=== PATIENT | female | born 1975 | race Caucasian/White ===

== ENCOUNTER 2018-02-16 15:09 | Inpatient (IN) | payer OTHER ==
[2018-02-16] MEDS ORDERED: ONDANSETRON DISINTEGRATING 4 MG TAB PO PRN (16:19)
--- NOTE | 2018-02-16 17:14 | GHP ---
POST ADMISSION PHYSICIAN EVALUATION AND REHABILITATION TREATMENT PLAN DATE OF ADMISSION: 02/16/2018 DATE OF EVALUATION: 02/16/2018. TIME OF EVALUATION: 1535. REFERRING FACILITY: [facility]. REFERRING PHYSICIAN: Dr. Rascon IMPAIRMENT GROUP: 1.1. DATE OF ONSET: 02/08/2018. REHABILITATION DIAGNOSIS: Debility status post hemorrhagic cerebrovascular accident. ETIOLOGIC DIAGNOSIS: Left body involvement (right brain). DATE OF SURGERY: 02/08/2018. CONSULTING PHYSICIANS: She was seen by surgery as well as Pulmonary and Critical Care. HISTORY OF PRESENT ILLNESS: This patient has a history of moyamoya disease with prior strokes and prior stenting of the left carotid artery. At that time there was narrowing of the bilateral carotid arteries, so she had a stenting of the right internal carotid soon thereafter. The left carotid artery stent was in December of 2015. The right one was on January 2016, and she had a repeat stent due to restenosis in August of 2016. She went to [facility] for tertiary care specialty intervention. She had a right craniotomy on 02/08/2018, for an extracranial to intracranial bypass. Following the bypass procedure, she was noted to have left -sided weakness and was diagnosed with a right intracranial hemorrhage. Head CT on 02/09/2018, showed postsurgical changes of right-sided craniotomy and EC to IC bypass with roughly stable large heterogeneous right frontoparietal postoperative hematoma and edema with local mass effect and a 4 mm right-to- left midline shift. Preoperative head CT showed chronic border zone hypoperfusion infarcts within the right frontal and parietal lobes. She was maintained on therapeutic hypernatremia to reduce brain swelling and upon hospital discharge, based on direct discussion with the discharging physician, her current sodium goal is 140. She subsequently had improvement in her left lower extremity strength and slight improvement in the left upper extremity strength. She reports that she has been able to stand and that she needed assist of 2 people to make transfers. She has not walked. LABS: Other labs and studies during this stay, I do not have a comprehensive list. On 02/13/2018, a basic metabolic profile showed a sodium of 152. PRECAUTIONS: She is a fall risk and has aspiration precautions. ACTIVE COMORBIDITIES: She has the tier 3 comorbidity of left hemiparesis. She otherwise has no active tier 1, tier 2 or tier 3 comorbidities. PAST MEDICAL HISTORY: 1. Moyamoya disease. 2. Prior CVA from which she reports no residual deficits. 3. Asthma. 4. General anxiety disorder. 5. Mixed hyperlipidemia. 6. Lumbar disk disorder. PAST SURGICAL HISTORY: Carotid stenting on the right and on the left. PRE HOSPITAL MEDICATIONS: 1. Albuterol metered-dose inhaler 1-2 puffs p.r.n. 2. Ascorbic acid 1000 mg p.o. at bedtime. 3. Aspirin 81 mg p.o. at bedtime. 4. Atorvastatin 10 mg p.o. at bedtime. 5. Clopidogrel 75 mg p.o. daily. 6. Escitalopram 20 mg p.o. at bedtime. 7. Folic acid 400 mcg p.o. at bedtime. 8. Lorazepam 0.5 mg p.o. at bedtime. 9. Montelukast 10 mg p.o. at bedtime. 10. Duet DHEA balanced multivitamin 1 p.o. daily. ADMISSION MEDICATIONS: 1. Albuterol metered-dose inhaler 1-2 puffs p.o. p.r.n. 2. Ascorbic acid 1000 mg p.o. at bedtime. 3. Atorvastatin 10 mg p.o. at bedtime. 4. Duet DHEA multivitamin p.o. daily. 5. Escitalopram 20 mg p.o. at bedtime. 6. Folic acid 400 mcg p.o. at bedtime. 7. Lorazepam 0.5 mg p.o. at bedtime. 8. Montelukast 10 mg p.o. at bedtime. 9. Acetaminophen 650 mg p.o. q.6 hours p.r.n. 10. Bacitracin/polymyxin once a day to right scalp incision for 1 month. 11. Baclofen 5 mg p.o. three times daily. 12. Docusate 1 p.o. twice daily. 13. Famotidine 1 p.o. twice daily. 14. Hydrocodone/acetaminophen 1 p.o. q.4 hours p.r.n. 15. Ondansetron 4 mg orally disintegrating tablet p.o. q.6 hours p.r.n. 16. Polyethylene glycol 1 packet p.o. daily p.r.n. 17. Sodium chloride 3 g p.o. three times daily with meals. ALLERGIES: There is an allergy listed to penicillin which caused a rash. SOCIAL HISTORY: She is . She lives with her . They have 2 school-age children at home. 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 She is a nonsmoker. FAMILY HISTORY: Her father had diabetes, heart disease and hypertension. There was cancer in a paternal grandfather and diabetes in a paternal grandfather as well as hypertension and heart disease. REVIEW OF SYSTEMS: She has some fatigue after traveling from [place] by plane and then from the airport to the rehabilitation unit. She gets headaches on the right side of her head, typically worse later in the day. She denies vision changes. She is aware of a left facial droop. She has weakness in the left arm and the left leg. She denies loss of sensation. She denies cough or dyspnea. She reports she was using some oxygen in the hospital. She reports that she typically uses albuterol inhaler only when she has an respiratory infection. Her weight has been stable. She denies nausea, vomiting, constipation, or diarrhea. She has a good appetite. She denies dysuria or urinary frequency. She has had urinary urgency and incontinence, but today was able to be continent and urinate normally using a bed wall. She has had loose stools while on a stool softener and the stool softener was held and now has more normal bowel movements. She reports that she snores. Her has not noticed apneas at night. Otherwise, a 10-point review of systems is negative. PHYSICAL EXAM: VITAL SIGNS: Blood pressure is 133/76, heart rate is 55, respiratory rate is 16, oxygen saturation is 94% on room air. Temperature is 36.7 degrees centigrade. Her weight is 95 kg for a body mass index of 32.8. GENERAL: This is an obese woman, lying in bed, wearing a hospital gown, cooperative and in no acute distress. HEENT: Extraocular movements are intact. Pupils are equal, round, reactive to light. Mucous membranes are moist. Dentition is in good condition. She has a crowded airway, Mallampati class 4. NECK: Supple. HEART: There is regular rate and rhythm with no murmurs, rubs, or gallops. She is slightly bradycardic. LUNGS: Clear to auscultation bilaterally. ABDOMEN: Soft, nontender, nondistended with normoactive bowel sounds and no hepatosplenomegaly. EXTREMITIES: There is no cyanosis, clubbing, or edema. Radial and dorsalis pedis pulses are 2+ bilaterally. NEUROLOGIC: She is alert and oriented x3. Regarding cranial nerves, she has a left facial droop. However, she has normal closure of the left eye. Sensation is present but reduced on the left side of her face from the forehead to the jaw. Cranial nerves otherwise 2-12 are within normal limits. Visual fulton by confrontation show possibly a defect in the right upper quadrant. In terms of motor strength, left upper extremity is at most 1/5. She has flaccid paralysis of the wrist and fingers, 2 to 3/5 strength of the left triceps. No movement to the left biceps. No movement of the left deltoid. She is able to shrug the left shoulder. In the left lower extremity, she has 4/5 strength at the hip flexor, 5/5 strength at the quadriceps and 3/5 strength at the hamstrings. She appears to have somewhat of an extension contracture at the left ankle. She has 3/5 to 4/5 strength for ankle dorsiflexion and 5/5 for ankle plantar flexion , great toe is 5/5 in extension. On the right side she has 5/5 strength overall. Sensation is intact to light touch bilaterally in the upper and lower extremities. There is no extinction to double simultaneous stimulation. Plantar reflex is indeterminate bilaterally. Deep tendon reflexes are 2+ bilaterally at the biceps and patella and are hypoactive bilaterally at the Achilles tendons. CURRENT LEVEL OF FUNCTION PER THE PREADMISSION SCREEN: She was on mechanical soft diet with nectar thick liquids. She required minimal assistance for eating. She had pocketing on the left. She was upright at 90 degrees after meals, taking small bites with no straws and small sips. Liquid wash and oral care after meals. Oral and pharyngeal dysphagia was noted. Regarding dressing , lower body required maximal assist and was done supine. Upper body required maximal assist. She was incontinent of bladder and bowel. Bed mobility required moderate assistance of 2 to go from supine to sit. Transfers required moderate assistance using a Radha Stedy with manual blocking of the left knee to prevent buckling during [id number] and stand to sit activities. Seated balance was fair. She required hand-held assist for midline, maintaining upright posture. She had adequate endurance to tolerate and participate in therapies. On today's exam, she is now continent of bladder. She required moderate assist of 1 for supine to seated. Otherwise, there are no significant differences from the pre-admission screen. IMPRESSION: This patient is a 42-year-old woman with a history of a prior stroke involving watershed areas of the right frontal and parietal areas and a diagnosis of moyamoya disease. She had previously had stenting of the right and x2 of the left internal carotid arteries and went to [facility] for definitive extracranial to intracranial bypass surgery. There was a postsurgical complication of hemorrhage in the right frontal and parietal lobes. The anastomosis remained intact. She was maintained with therapeutic hypernatremia to reduce brain swelling. She was otherwise stable and ready for rehabilitation. She returned to [place] where she lives to have her rehabilitation done locally. She has oral and pharyngeal dysphagia, left facial droop and reduced sensation and weakness of the left upper much more so than the left lower extremities. She has neck pain and headache which present later in the day. She has had hypernatremia with the current goal of normal sodium. She is appropriate for inpatient rehabilitation where she will benefit from PT, OT, and CAMPAIGN ADVISOR. Her goal is to complete a rehabilitation stay and return home with her family and supportive services. For a safe discharge, it is anticipated that she will be independent with eating and will tolerate a regular diet. She will have modified independence for grooming. She will likely require supervision for bed mobility and transfers to wheelchair. She will be able to self propel the wheelchair for household distances. She will be able to take steps with a pedro luis walker with contact guard. She will likely require assistance and equipment for bathing and dressing and likely minimal assistance for these tasks. Her home will need to be prepared with a ramp and potentially a [place] to access the bedroom and bathroom on the 2nd floor. She will have therapy with PT, OT, and speech therapy for 1 hour per day for each discipline on 5-7 days of the week. Her expected duration of stay is 21- 28 days. It is anticipated that upon discharge she will continue to benefit from home health services including nursing, speech and language pathology, a nurse's aide , hospital social worker, occupational therapy, physical therapy and a stroke support group. PLAN: 1. Hemorrhagic cerebrovascular accident of the right frontal and parietal region following extracranial to intracranial arterial bypass graft for moyamoya disease. PT and OT to optimize mobility and activities of daily living towards the independent to modified independent level, though she will likely continue to require assistance for dressing and bathing. 2. Dysphagia, oral and pharyngeal, to be assessed and treated per Speech and Language Pathology. 3. Therapeutic hypernatremia. She is to continue sodium chloride 3 g three times daily with a goal now of normal sodium of 140. 4. Secondary stroke prophylaxis, she will continue atorvastatin for dyslipidemia. Aspirin can be resumed 1 month postoperative, which would be March 10. Unclear if it is to be 81 mg or 325 mg. 5. Asthma. Continue scheduled oral montelukast and albuterol metered dose inhaler p.r.n. 6. Headache and neck pain. Continue acetaminophen as well as a hydrocodone acetaminophen combination on a p.r.n. basis. 7. History of anxiety. Continue escitalopram and continue lorazepam at bedtime. 8. Obesity. This will complicate her return to mobility. She will have a consult with the dietitian. 9. Prophylaxis with obesity and hemiplegia. She is at elevated risk for deep vein thrombosis, however with recent hemorrhagic stroke, discharging physicians report that any anticoagulation is contraindicated (discussed by phone with Dr. Radha Rasocn, 02/16/2018) she will have SCDs at night on her legs. Increased mobility will be encouraged. She has been discharged on famotidine for GI prophylaxis. This will be continued initially. 10. Followup: She will follow up with the neurosurgery service at [facility] in 6 months. /[id number]/MODL MTDD
[2018-02-16] MEDS: SODIUM CHLORIDE 1,000 MG TAB PO SCH (17:24)
[2018-02-16] MEDS: ESCITALOPRAM OXALATE 10 MG TAB PO SCH (21:04)
[2018-02-16] MEDS: ATORVASTATIN CALCIUM 10 MG TAB PO SCH (21:04)
[2018-02-16] MEDS: FOLIC ACID 1 MG TAB PO SCH (21:04)
[2018-02-16] MEDS: FAMOTIDINE 20 MG TAB PO SCH (21:04)
[2018-02-16] MEDS: DOCUSATE SODIUM 100 MG CAP PO SCH (21:05)
[2018-02-16] MEDS: BACLOFEN 10 MG TAB PO SCH (21:05)
[2018-02-16] MEDS: MONTELUKAST SODIUM 10 MG TAB PO SCH (21:05)
[2018-02-16] MEDS: LORazepam 0.5 MG TAB PO SCH (21:05)
[2018-02-16] MEDS: BACITRACIN/POLYMYXIN B SULFATE 28.3 GM TUBE TP SCH (21:06)
[2018-02-16] MEDS: HYDROCODONE/APAP 10/325 TAB PO PRN (21:06)
[2018-02-16] MEDS: HYDROCODONE/APAP 5/325 TAB PO PRN (22:58)
[2018-02-17 00:14] LABS: PLATELET COUNT 238 10^3/uL (150-400)
[2018-02-17] MEDS: [UNRECOGNIZED DRUG - OTHER] PO SCH (09:10)
[2018-02-17] MEDS: SODIUM CHLORIDE 1,000 MG TAB PO SCH ×3 (09:12→18:30)
[2018-02-17] MEDS: DOCUSATE SODIUM 100 MG CAP PO SCH ×2 (09:14→22:15)
[2018-02-17] MEDS: FAMOTIDINE 20 MG TAB PO SCH ×2 (09:14→22:16)
[2018-02-17] MEDS: BACLOFEN 10 MG TAB PO SCH ×3 (09:14→22:15)
[2018-02-17] MEDS: POLYETHYLENE GLYCOL 3350 17 GM PKT PO PRN (09:15)
--- NOTE | 2018-02-17 09:35 | PDOREHIP ---
Admission [facility] - Admission - 3 Day Assessment Period Admission Date/Day 1: 02/16/18 Day 2: 02/17/18 Day 3: 02/18/18 - Active Diagnoses Comorbidities and Co-existing Conditions at Admission: 57519. None of the Above - Skin Conditions Unhealed Pressure Ulcer (1 or more/Stage 1 or >)-Admission: 0. No
--- NOTE | 2018-02-17 09:35 | SOAPPROG ---
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 PT and OT to optimize mobility and activities of daily living towards the independent to modified independent level, though she will likely continue to require assistance for dressing and bathing. Dysphagia, oral and pharyngeal, to be assessed and treated per Speech and Language Pathology. Therapeutic hypernatremia. She is at her goal of normal sodium, with sodium 141 on 02/16/2018. Will decrease sodium chloride to 2 g 3 times a day. Recheck BMP on 02/20/2018. Allodynia, left leg. Consistent with central post-stroke pain. DVT ruled out by ultrasound, 02/17/2018. * Trial of gabapentin. Begin with low-dose 100 mg three times daily. Titrate rapidly if no adverse effects. Secondary stroke prophylaxis. Continue atorvastatin for dyslipidemia. Aspirin can be resumed 1 month postoperative, which would be March 10. Asthma. Asymptomatic. Continue scheduled oral montelukast and albuterol metered dose inhaler p.r.n. Headache and neck pain. Continue acetaminophen as well as a hydrocodone acetaminophen combination on a p.r.n. basis. History of anxiety. Continue escitalopram and continue lorazepam at bedtime. Obesity. This will complicate her return to mobility. She will have a consult with the dietitian. Prophylaxis with obesity and hemiplegia. She is at elevated risk for deep vein thrombosis, however with recent hemorrhagic stroke, discharging physicians report that any anticoagulation is contraindicated (discussed by phone with Dr. Radha Rascon, 02/16/2018, ). She will have SCDs at night on her legs. Increased mobility will be encouraged. She has been discharged on famotidine for GI prophylaxis. This will be continued initially. Followup: She will follow up with the neurosurgery service at [facility] in 6 months. 02/17/18 10:09 Subjective: Slept well after about 2 in the morning when she returned from ultrasound. Left DVT was ruled out. She complains of pain in the left leg with stimulus which is not normally painful for instance if anyone jaw cells the bed. She denies focal tenderness. No cough or dyspnea. Objective: Vital Signs Temp Pulse Resp BP Pulse Ox 36.6 C 51 L 12 154/78 H 93 02/17/18 08:00 02/17/18 08:00 02/17/18 08:00 02/17/18 08:00 02/17/18 08:00 Laboratory Results 02/16/18 23:10 02/16/18 23:10 02/16/18 02/17/18 02/18/18 05:59 05:59 05:59 Output Total 400 400 Balance -400 -400 Physical Exam - Physical Exam General Appearance: WD/WN, alert, no apparent distress Respiratory: No respiratory distress, No accessory muscle use Skin: normal color, warm/dry Extremities: non-tender, No pedal edema, No calf tenderness Neuro/Psych: alert, normal mood/affect, oriented x 3 ICD10 Worksheet Patient Problems: Problems Problem Status Onset CVA (cerebral vascular accident) Acute
[2018-02-17] MEDS: BACITRACIN/POLYMYXIN B SULFATE 28.3 GM TUBE TP SCH ×3 (11:08→22:16)
[2018-02-17] MEDS: HYDROCODONE/APAP 5/325 TAB PO PRN ×2 (13:58→23:40)
[2018-02-17] MEDS: GABAPENTIN 100 MG CAP PO SCH ×2 (15:51→22:15)
[2018-02-17] MEDS: LORazepam 0.5 MG TAB PO SCH (22:15)
[2018-02-17] MEDS: MONTELUKAST SODIUM 10 MG TAB PO SCH (22:15)
[2018-02-17] MEDS: FOLIC ACID 1 MG TAB PO SCH (22:15)
[2018-02-17] MEDS: ESCITALOPRAM OXALATE 10 MG TAB PO SCH (22:15)
[2018-02-17] MEDS: ATORVASTATIN CALCIUM 10 MG TAB PO SCH (22:16)
[2018-02-18] MEDS: HYDROCODONE/APAP 10/325 TAB PO PRN ×4 (03:47→22:31)
[2018-02-18] MEDS: BACLOFEN 10 MG TAB PO SCH ×3 (09:05→22:31)
[2018-02-18] MEDS: FAMOTIDINE 20 MG TAB PO SCH ×2 (09:05→22:30)
[2018-02-18] MEDS: SODIUM CHLORIDE 1,000 MG TAB PO SCH ×3 (09:05→18:27)
[2018-02-18] MEDS: GABAPENTIN 100 MG CAP PO SCH ×3 (09:05→22:30)
[2018-02-18] MEDS: DOCUSATE SODIUM 100 MG CAP PO SCH ×2 (09:05→22:30)
[2018-02-18] MEDS: BACITRACIN/POLYMYXIN B SULFATE 28.3 GM TUBE TP SCH ×3 (09:07→22:31)
[2018-02-18] MEDS: [UNRECOGNIZED DRUG - OTHER] PO SCH (09:21)
--- NOTE | 2018-02-18 09:55 | SOAPPROG ---
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 PT and OT to optimize mobility and activities of daily living towards the independent to modified independent level, though she will likely continue to require assistance for dressing and bathing. Dysphagia, oral and pharyngeal, to be assessed and treated per Speech and Language Pathology. CURRENTLY ON DYSPHAGIA 2 DIET. SPEECH THERAPY CONTINUES TO WORK WITH HER MASTICATION IS SKILLS Therapeutic hypernatremia. She is at her goal of normal sodium, with sodium 141 on 02/16/2018. Will decrease sodium chloride to 2 g 3 times a day. Recheck BMP on 02/20/2018. Allodynia, left leg. Consistent with central post-stroke pain. DVT ruled out by ultrasound, 02/17/2018. * Trial of gabapentin. Begin with low-dose 100 mg three times daily. Titrate rapidly if no adverse effects. Secondary stroke prophylaxis. Continue atorvastatin for dyslipidemia. Aspirin can be resumed 1 month postoperative, which would be March 10. Asthma. Asymptomatic. Continue scheduled oral montelukast and albuterol metered dose inhaler p.r.n. Headache and neck pain. Continue acetaminophen as well as a hydrocodone acetaminophen combination on a p.r.n. basis. History of anxiety. Continue escitalopram and continue lorazepam at bedtime. Obesity. This will complicate her return to mobility. She will have a consult with the dietitian. Prophylaxis with obesity and hemiplegia. She is at elevated risk for deep vein thrombosis, however with recent hemorrhagic stroke, discharging physicians report that any anticoagulation is contraindicated (discussed by phone with Dr. Radha Rascon, 02/16/2018, ). She will have SCDs at night on her legs. Increased mobility will be encouraged. She has been discharged on famotidine for GI prophylaxis. This will be continued initially. LEFT HEEL CORD TIGHTNESS-PATIENT WILL KNEE PASSIVE ANKLE DORSIFLEXION RANGE OF MOTION 3 TIMES PER DAY TO PREVENT HEEL CORD TIGHTNESS. LEFT HEMIPLEGIA-PATIENT ENCOURAGED TO PERFORM ACTIVE LEFT HIP FLEXION, LEFT KNEE FLEXION AND ANKLE DORSIFLEXION SEVERAL TIMES PER HOUR. ON EXAM NO EVIDENCE OF LEFT SHOULDER SUBLUXATION Plan: 02/18/18 09:52 Subjective: SHE HAS NO COMPLAINTS THIS MORNING. SHE DENIES LEFT SHOULDER PAIN. SHE REPORTS SHE IS GETTING SOME MOTOR RETURN IN HER LEFT LOWER EXTREMITY. Objective: Vital Signs Temp Pulse Resp BP Pulse Ox 36.6 C 53 L 16 122/73 H 93 02/17/18 20:08 02/17/18 20:08 02/17/18 20:08 02/17/18 20:08 02/17/18 20:08 Laboratory Results 02/16/18 23:10 02/16/18 23:10 02/17/18 02/18/18 02/19/18 05:59 05:59 05:59 Intake Total 327 Output Total 400 1300 Balance -400 -973 Physical Exam - Physical Exam General Appearance: WD/WN, alert, no apparent distress Respiratory: lungs clear, normal breath sounds Cardiac/Chest: edema (LEFT FOREARM AND HAND SLIGHTLY EDEMATOUS) Abdomen: non-tender, soft Extremities: No swelling, No Mckayla's sign (RIGHT FACIAL DROOP. LEFT HEMIPLEGIA WITH NO MOTOR RETURN THUS FAR IN LEFT UPPER EXTREMITY 3/5 HIP FLEXORS, HAMSTRINGS AND ANKLE DORSIFLEXORS. INCREASED TONE LEFT ANKLE PLANTAR FLEXORS WITH PASSIVE DORSIFLEXION CAN ACHIEVE 0 BUT NOTED TO HAVE HEEL CORD TIGHTNESS.) Neuro/Psych: alert, oriented x 3 ICD10 Worksheet Patient Problems: Problems Problem Status Onset CVA (cerebral vascular accident) Acute
[2018-02-18] MEDS: POLYETHYLENE GLYCOL 3350 17 GM PKT PO PRN (18:27)
[2018-02-18] MEDS: MONTELUKAST SODIUM 10 MG TAB PO SCH (22:30)
[2018-02-18] MEDS: LORazepam 0.5 MG TAB PO SCH (22:30)
[2018-02-18] MEDS: ESCITALOPRAM OXALATE 10 MG TAB PO SCH (22:30)
[2018-02-18] MEDS: ATORVASTATIN CALCIUM 10 MG TAB PO SCH (22:30)
[2018-02-18] MEDS: FOLIC ACID 1 MG TAB PO SCH (22:31)
[2018-02-18] MEDS: HYDROCODONE/APAP 5/325 TAB PO PRN (23:44)
[2018-02-19] MEDS: HYDROCODONE/APAP 5/325 TAB PO PRN (06:26)
[2018-02-19] MEDS: BACLOFEN 10 MG TAB PO SCH ×3 (09:10→22:29)
[2018-02-19] MEDS: FAMOTIDINE 20 MG TAB PO SCH ×2 (09:10→22:28)
[2018-02-19] MEDS: DOCUSATE SODIUM 100 MG CAP PO SCH ×2 (09:10→22:28)
[2018-02-19] MEDS: SODIUM CHLORIDE 1,000 MG TAB PO SCH ×3 (09:11→17:47)
[2018-02-19] MEDS: GABAPENTIN 100 MG CAP PO SCH (09:11)
[2018-02-19] MEDS: POLYETHYLENE GLYCOL 3350 17 GM PKT PO PRN (09:15)
[2018-02-19] MEDS: [UNRECOGNIZED DRUG - OTHER] PO SCH (09:28)
[2018-02-19] MEDS: BACITRACIN/POLYMYXIN B SULFATE 28.3 GM TUBE TP SCH ×3 (09:29→22:30)
--- NOTE | 2018-02-19 10:39 | SOAPPROG ---
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 PT and OT to optimize mobility and activities of daily living towards the independent to modified independent level, though she will likely continue to require assistance for dressing and bathing. Dysphagia, oral and pharyngeal, to be assessed and treated per Speech and Language Pathology. CURRENTLY ON DYSPHAGIA 2 DIET. SPEECH THERAPY CONTINUES TO WORK WITH HER MASTICATION IS SKILLS Therapeutic hypernatremia. She is at her goal of normal sodium, with sodium 141 on 02/16/2018. Will decrease sodium chloride to 2 g 3 times a day. Recheck BMP on 02/20/2018. Allodynia, left leg. Consistent with central post-stroke pain. DVT ruled out by ultrasound, 02/17/2018. * HAVE INCREASED GABAPENTIN TO 300 MG TWICE DAILY TODAY AND IF NO IMPROVEMENT IN LEFT LOWER EXTREMITY NEUROPATHIC PAIN WILL INCREASE IT TO 300 THREE TIMES DAILY IN NEXT FEW DAYS. Secondary stroke prophylaxis. Continue atorvastatin for dyslipidemia. Aspirin can be resumed 1 month postoperative, which would be March 10. Asthma. Asymptomatic. Continue scheduled oral montelukast and albuterol metered dose inhaler p.r.n. Headache and neck pain. BEGIN FIORICET ON A SCHEDULED BASIS TO ADDRESS HEADACHE. DISCUSSED WITH NURSING TO COUNSELED PATIENT TO TAKE NORCO AT NIGHT TO AVOID SEDATION DURING THERAPY AND TO TAKE FIORICET IF SHE HAS HEADACHES DURING THE DAY. History of anxiety. Continue escitalopram and continue lorazepam at bedtime. Obesity. This will complicate her return to mobility. She will have a consult with the dietitian. Prophylaxis with obesity and hemiplegia. She is at elevated risk for deep vein thrombosis, however with recent hemorrhagic stroke, discharging physicians report that any anticoagulation is contraindicated (discussed by phone with Dr. Radha Rascon, 02/16/2018, ). She will have SCDs at night on her legs. Increased mobility will be encouraged. She has been discharged on famotidine for GI prophylaxis. This will be continued initially. LEFT HEEL CORD TIGHTNESS-PATIENT WILL KNEE PASSIVE ANKLE DORSIFLEXION RANGE OF MOTION 3 TIMES PER DAY TO PREVENT HEEL CORD TIGHTNESS. LEFT HEMIPLEGIA-PATIENT ENCOURAGED TO PERFORM ACTIVE LEFT HIP FLEXION, LEFT KNEE FLEXION AND ANKLE DORSIFLEXION SEVERAL TIMES PER HOUR. ON EXAM NO EVIDENCE OF LEFT SHOULDER SUBLUXATION Plan: 02/18/18 09:52 02/19/18 10:37 Subjective: NO COMPLAINTS THIS A.M.. NURSING REPORTS THAT SHE HAD A BAD HEADACHE YESTERDAY AND TOOK NORCO FOR THIS HOWEVER THIS CAUSE SEDATION. NURSING ALSO RELAYS THAT SHE CONTINUES TO COMPLAIN OF INCREASED LEFT LOWER EXTREMITY PAIN WHICH APPARENTLY STARTED AFTER MY ROUNDS YESTERDAY. NURSING ALSO REPORTS THAT PATIENT HAS NOT HAD A BOWEL MOVEMENT SINCE 03/17 Objective: Vital Signs Temp Pulse Resp BP Pulse Ox 37.0 C 57 L 16 136/87 H 93 02/19/18 06:46 02/19/18 06:46 02/19/18 06:46 02/19/18 06:46 02/19/18 06:46 Laboratory Results 02/16/18 23:10 02/16/18 23:10 02/18/18 02/19/18 02/20/18 05:59 05:59 05:59 Intake Total 327 660 Output Total 1300 1025 500 [facility] -[phone] Physical Exam - Physical Exam General Appearance: WD/WN, alert Respiratory: lungs clear, normal breath sounds Abdomen: normal bowel sounds, non-tender, soft Skin: warm/dry Extremities: swelling (SLIGHT EDEMA NOTED LEFT FOREARM AND HAND), No Mckayla's sign Neuro/Psych: other (NEUROLOGICAL EXAM REMAINS UNCHANGED. SHE CAN LIFT THE LEFT LEG UP A FEW INCHES OFF OF THE BED. SHE IS ABLE TO ACTIVELY FLEX AND EXTEND THE KNEE WITHIN LIMITED RANGE OF MOTION. STILL HAS DIFFICULTY WITH HIP FLEXION. NO LEFT SHOULDER SUBLUXATION APPRECIATED.) ICD10 Worksheet Patient Problems: Problems Problem Status Onset CVA (cerebral vascular accident) Acute
[2018-02-19] MEDS: ACET/CAFFEINE/BUTA FIORICET 1 EACH TAB PO PRN ×3 (10:55→23:09)
[2018-02-19] MEDS: BISACODYL 10 MG SUPP PR PRN (15:31)
[2018-02-19] MEDS: GABAPENTIN 300 MG CAP PO SCH (22:28)
[2018-02-19] MEDS: LORazepam 0.5 MG TAB PO SCH (22:29)
[2018-02-19] MEDS: ATORVASTATIN CALCIUM 10 MG TAB PO SCH (22:29)
[2018-02-19] MEDS: ESCITALOPRAM OXALATE 10 MG TAB PO SCH (22:29)
[2018-02-19] MEDS: MONTELUKAST SODIUM 10 MG TAB PO SCH (22:29)
[2018-02-19] MEDS: FOLIC ACID 1 MG TAB PO SCH (22:29)
[2018-02-19] MEDS: SENNOSIDES 1 TAB PO SCH (22:29)
[2018-02-20] MEDS: SENNOSIDES 1 TAB PO SCH ×2 (09:08→21:17)
[2018-02-20] MEDS: BACLOFEN 10 MG TAB PO SCH ×3 (09:08→21:03)
[2018-02-20] MEDS: DOCUSATE SODIUM 100 MG CAP PO SCH ×2 (09:09→21:16)
[2018-02-20] MEDS: FAMOTIDINE 20 MG TAB PO SCH ×2 (09:09→21:05)
[2018-02-20] MEDS: POLYETHYLENE GLYCOL 3350 17 GM PKT PO PRN (09:09)
[2018-02-20] MEDS: GABAPENTIN 300 MG CAP PO SCH ×2 (09:09→21:03)
[2018-02-20] MEDS: SODIUM CHLORIDE 1,000 MG TAB PO SCH ×3 (09:09→17:27)
[2018-02-20] MEDS: ACET/CAFFEINE/BUTA FIORICET 1 EACH TAB PO PRN ×3 (09:10→21:59)
[2018-02-20] MEDS: BACITRACIN/POLYMYXIN B SULFATE 28.3 GM TUBE TP SCH ×2 (09:15→15:59)
--- NOTE | 2018-02-20 12:13 | SOAPPROG ---
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 PT and OT to optimize mobility and activities of daily living towards the independent to modified independent level, though she will likely continue to require assistance for dressing and bathing. DENSE LEFT UPPER EXTREMITY PARESIS WITH NO VOLUNTARY MOVEMENT. 3/5 LEFT HIP FLEXION 3-/5 QUADRICEPS AND HAMSTRINGS 3/5 TIBIALIS ANTERIOR. CURRENTLY NOT WALKING OR PERFORMING TRANSFERS. Dysphagia, ORAL AND PHARYNGEAL. SPEECH AND LANGUAGE THERAPY WORKING WITH PATIENT. SHE HAS TROUBLE WITH MASTICATION DUE TO WEAKNESS OF MUSCLES OF MASTICATION. TENDS TO HAVE SOME ORAL POOLING. SHE IS ON WATER PROTOCOL BUT IS NOT TAKING IN ENOUGH FLUIDS. SHE IS ON NECTAR THICK. SPEECH THERAPY WILL WORK ON E- STIMULATION of oral muscles. Therapeutic hypernatremia. She is at her goal of normal sodium, with sodium 141 on 02/16/2018. Will decrease sodium chloride to 2 g 3 times a day. Recheck BMP on 02/21 Allodynia, left leg. Consistent with central post-stroke pain. DVT ruled out by ultrasound, 02/17/2018. * HAVE INCREASED GABAPENTIN TO 300 MG TWICE DAILY TODAY AND IF NO IMPROVEMENT IN LEFT LOWER EXTREMITY NEUROPATHIC PAIN WILL INCREASE IT TO 300 THREE TIMES DAILY IN NEXT FEW DAYS. Secondary stroke prophylaxis. Continue atorvastatin for dyslipidemia. Aspirin can be resumed 1 month postoperative, which would be March 10. Asthma. Asymptomatic. Continue scheduled oral montelukast and albuterol metered dose inhaler p.r.n. Headache and neck pain. Much improved after beginning Fioricet History of anxiety. Continue escitalopram and continue lorazepam at bedtime. Obesity. This will complicate her return to mobility. She will have a consult with the dietitian. Prophylaxis with obesity and hemiplegia. She is at elevated risk for deep vein thrombosis, however with recent hemorrhagic stroke, discharging physicians report that any anticoagulation is contraindicated (discussed by phone with Dr. Radha Rascon, 02/16/2018, ). She will have SCDs at night on her legs. Increased mobility will be encouraged. She has been discharged on famotidine for GI prophylaxis. This will be continued initially. LEFT HEEL CORD TIGHTNESS-PATIENT WILL KNEE PASSIVE ANKLE DORSIFLEXION RANGE OF MOTION 3 TIMES PER DAY TO PREVENT HEEL CORD TIGHTNESS. LEFT HEMIPLEGIA-PATIENT ENCOURAGED TO PERFORM ACTIVE LEFT HIP FLEXION, LEFT KNEE FLEXION AND ANKLE DORSIFLEXION SEVERAL TIMES PER HOUR. ON EXAM NO EVIDENCE OF LEFT SHOULDER SUBLUXATION Plan: 02/18/18 09:52 02/19/18 10:37 02/20/18 12:08 Subjective: PATIENT REPORTS HEADACHES MUCH IMPROVED AFTER BEGINNING FIORICET. SHE IS STILL HAVING SOME NEUROPATHIC PAIN IN THE LEFT UPPER AND LEFT LOWER EXTREMITY WELL THE [place] [facility]. NO OTHER COMPLAINTS PER PATIENT OR NURSING STAFF Objective: Vital Signs Temp Pulse Resp BP Pulse Ox 36.6 C 54 L 16 141/85 H 93 02/20/18 06:45 02/20/18 06:45 02/20/18 06:45 02/20/18 06:45 02/20/18 06:45 Laboratory Results 02/16/18 23:10 02/16/18 23:10 02/19/18 02/20/18 02/21/18 05:59 05:59 05:59 Intake Total 660 320 Output Total 1025 1800 Balance -365 -1480 Physical Exam - Physical Exam General Appearance: WD/WN, alert Respiratory: lungs clear, normal breath sounds Cardiac/Chest: regular rate, rhythm, No edema Abdomen: normal bowel sounds, non-tender, soft Skin: warm/dry, other (SCALP INCISION HEALING WELL) Extremities: other (HEEL CORD TIGHT, MILD TIGHTNESS OF THE LEFT HAND INTRINSICS) , No swelling, No Mckayla's sign Neuro/Psych: motor weakness (DENSE LEFT UPPER EXTREMITY PARESIS, ANTIGRAVITY LEFT HIP FLEXION, KNEE FLEXION, 3/5 ANKLE DORSIFLEXION) ICD10 Worksheet Patient Problems: Problems Problem Status Onset CVA (cerebral vascular accident) Acute
[2018-02-20] MEDS ORDERED: NS 1,000 ML IV SCH (12:15)
[2018-02-20] MEDS: [UNRECOGNIZED DRUG - OTHER] PO SCH (12:41)
[2018-02-20] MEDS: BISACODYL 10 MG SUPP PR PRN (16:03)
[2018-02-20] MEDS: ATORVASTATIN CALCIUM 10 MG TAB PO SCH (21:02)
[2018-02-20] MEDS: FOLIC ACID 1 MG TAB PO SCH (21:04)
[2018-02-20] MEDS: ESCITALOPRAM OXALATE 10 MG TAB PO SCH (21:04)
[2018-02-20] MEDS: MONTELUKAST SODIUM 10 MG TAB PO SCH (21:04)
[2018-02-20] MEDS: LORazepam 0.5 MG TAB PO SCH (21:05)
[2018-02-21] MEDS: HYDROCODONE/APAP 5/325 TAB PO PRN (02:22)
[2018-02-21] MEDS: ACET/CAFFEINE/BUTA FIORICET 1 EACH TAB PO PRN (06:13)
[2018-02-21 08:04] LABS: PLATELET COUNT 288 10^3/uL (150-400)
[2018-02-21] MEDS: SODIUM CHLORIDE 1,000 MG TAB PO SCH ×2 (08:44→12:28)
[2018-02-21] MEDS: DOCUSATE SODIUM 100 MG CAP PO SCH (08:47)
[2018-02-21] MEDS: SENNOSIDES 1 TAB PO SCH (08:47)
[2018-02-21] MEDS: GABAPENTIN 300 MG CAP PO SCH (08:48)
[2018-02-21] MEDS: FAMOTIDINE 20 MG TAB PO SCH (08:48)
[2018-02-21] MEDS: [UNRECOGNIZED DRUG - OTHER] PO SCH (08:50)
[2018-02-21] MEDS: BACLOFEN 10 MG TAB PO SCH (08:52)
[2018-02-21 10:20] VITALS: BP 102/67
--- NOTE | 2018-02-21 10:41 | SOAPPROG ---
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 DUE TO WORSENING HEADACHE AND POSSIBLE MILD CHANGE IN COGNITION, WELL INCREASING WHITE COUNT CURRENTLY AT 15.82 FROM THIS MORNING COMPARED TO 9.82 ON 02/16, WILL OBTAIN EITHER HEAD CT WITH AND WITHOUT CONTRAST OR MRI WITH THAT OR WITHOUT CONTRAST. CONTACTED HER NEUROSURGEON'S OFFICE FROM [facility] [place], DR. ORTIZ, AND RECEIVED FAX MEDICAL RECORDS WHICH INCLUDED OPERATIVE REPORT FROM 02/08. THIS WAS FAXED OVER TO DR. MOY AT [facility] FOR HIS GUIDANCE ADVISER TO REVIEW TO SEE IF SHE CAN HAVE AN MRI. I HAVE A SUSPICION THAT THIS MAY BE CONTRAINDICATED DUE TO THE PRESENCE OF SOME SURGICAL CLIPS AND IF THIS IS THE CASE THEN WE WILL PROCEED WITH HEAD CT WITH AND WITHOUT CONTRAST ROSI TO RULE OUT NEW BLEED VERSES INFECTIOUS MASS. LEUKOCYTOSIS-CURRENT WHITE COUNT 15.82 AND INCREASED FROM 9.82 ON 02/16 ADMISSION. NO OVERT FINDINGS ON PHYSICAL EXAM, MAY BE RELATED TO ABOVE. THIS MAY ALSO BE RELATED TO CLOT FORMATION Dysphagia, ORAL AND PHARYNGEAL. SPEECH AND LANGUAGE THERAPY CURRENTLY WORKING WITH PATIENT SHE HAS TROUBLE WITH MASTICATION DUE TO WEAKNESS OF MUSCLES OF MASTICATION. TENDS TO HAVE SOME ORAL POOLING. SHE IS ON WATER PROTOCOL BUT IS NOT TAKING IN ENOUGH FLUIDS. SHE IS ON NECTAR THICK. SPEECH THERAPY WILL WORK ON E- STIMULATION of oral muscles. Therapeutic hypernatremia. SODIUM LEVEL THIS MORNING 140 Allodynia, left leg. Consistent with central post-stroke pain. DVT ruled out by ultrasound, 02/17/2018. * HAVE INCREASED GABAPENTIN TO 300 MG TWICE DAILY TODAY AND IF NO IMPROVEMENT IN LEFT LOWER EXTREMITY NEUROPATHIC PAIN WILL INCREASE IT TO 300 THREE TIMES DAILY IN NEXT FEW DAYS. Secondary stroke prophylaxis. Continue atorvastatin for dyslipidemia. Aspirin can be resumed 1 month postoperative, which would be March 10. Asthma. Asymptomatic. Continue scheduled oral montelukast and albuterol metered dose inhaler p.r.n. History of anxiety. Continue escitalopram and continue lorazepam at bedtime. Obesity. This will complicate her return to mobility. She will have a consult with the dietitian. Prophylaxis with obesity and hemiplegia. She is at elevated risk for deep vein thrombosis, however with recent hemorrhagic stroke, discharging physicians report that any anticoagulation is contraindicated (discussed by phone with Dr. Radha Rascon, 02/16/2018, ). She will have SCDs at night on her legs. Increased mobility will be encouraged. She has been discharged on famotidine for GI prophylaxis. This will be continued initially. LEFT HEEL CORD TIGHTNESS-PATIENT WILL KNEE PASSIVE ANKLE DORSIFLEXION RANGE OF MOTION 3 TIMES PER DAY TO PREVENT HEEL CORD TIGHTNESS. Subjective: SHE REPORTS WORSENING HEADACHE THIS MORNING. SPEECH THERAPY REPORTS THAT SHE IS SOMEWHAT MORE SLUGGISH THIS MORNING. NO CHANGE IN NEUROLOGICAL STATUS PER NURSING STAFF Objective: Vital Signs Temp Pulse Resp BP Pulse Ox 36.7 C 55 L 18 102/67 91 L 02/21/18 10:19 02/21/18 10:19 02/21/18 10:19 02/21/18 10:19 02/21/18 10:19 Laboratory Results 02/21/18 05:30 02/21/18 05:30 02/20/18 02/21/18 02/22/18 05:59 05:59 05:59 Intake Total 320 1295 Output Total 1800 750 Balance -1480 545 Physical Exam - Physical Exam General Appearance: WD/WN, alert, no apparent distress, other (APPEARS COMFORTABLE SITTING IN CHAIR IN DINING [place]. UNDERGOING FACIAL STIMULATION PER SPEECH THERAPY. ) Neck: supple Respiratory: lungs clear, normal breath sounds Abdomen: non-tender, soft Skin: warm/dry Extremities: No swelling, No Mckayla's sign (NO CHANGE IN FACIAL DROOP. NO CHANGE IN LEFT UPPER LEFT LOWER EXTREMITY MOTOR STATUS. FLAT AFFECT UNCHANGED FROM PREVIOUS EXAM) ICD10 Worksheet Patient Problems: Problems Problem Status Onset CVA (cerebral vascular accident) Acute
[2018-02-21] MEDS ORDERED: IOPAMIDOL (ISOVUE-300) 100 ML BTL ONE (13:02)
== END 2018-02-21 15:30 | disposition still patient (30) | DRG 57 ==
LOC: BREH 15:09
PROVIDERS: ADMIT Internal Medicine; ATTEND Internal Medicine
PROC: F08Z2ZZ Grooming/Personal Hygiene Treatment (ICD-10-PCS; principal; 2018-02-16)
PROC: F08Z0ZZ Bathing/Showering Techniques Treatment (ICD-10-PCS; principal; 2018-02-16)
PROC: F07Z8ZZ Transfer Training Treatment (ICD-10-PCS; principal; 2018-02-16)
PROC: F07Z5ZZ Bed Mobility Treatment (ICD-10-PCS; principal; 2018-02-16)
PROC: F08Z1ZZ Dressing Techniques Treatment (ICD-10-PCS; principal; 2018-02-16)
PROC: F08Z3ZZ Feeding/Eating Treatment (ICD-10-PCS; principal; 2018-02-16)
DX: I69.354 Hemiplegia and hemiparesis following cerebral infarction affecting left non-dominant side (principal); I69.391 Dysphagia following cerebral infarction; I69.392 Facial weakness following cerebral infarction; J45.909 Unspecified asthma, uncomplicated; F41.9 Anxiety disorder, unspecified; E78.5 Hyperlipidemia, unspecified; I67.5 Moyamoya disease; E87.0 Hyperosmolality and hypernatremia; E66.9 Obesity, unspecified; R51 Headache; M54.2 Cervicalgia
CPT/HCPCS: 92507-GN; 92523-GN; 92526-GN; 92610-GN; 97112-GO; 97112-GP; 97116-GP; 97162-GP; 97166-GO; 97530-GO; 97530-GP; 97535-GO; G0008; Q9967

== ENCOUNTER 2018-02-21 14:18 | Inpatient (IN) | payer OTHER ==
--- NOTE | 2018-02-21 14:33 | EDPHY ---
H & P Stated Complaint: recent cva, sent from rehab - for possible ongoing cerebral bleed Time Seen by Provider: 02/21/18 14:20 HPI/ROS: CHIEF COMPLAINT: Headache, change in mental status HISTORY OF PRESENT ILLNESS: Patient is a 42-year-old female with a diagnosis of moyamoya disease who received a intracranial bypass on January 29 at [facility]. Postoperatively she had an intracranial hemorrhage on the right causing left-sided paralysis. This stabilized and she did not have repeat surgery. She was then transferred here to [place] about a week ago for rehabilitation. She had been improving until last night when she developed a headache and today it was felt by staff that she had a flat affect and was less talkative. No fevers. They sent her here for CT scanning and CT scan revealed a 6 x 3 cm hematoma on the right intraparenchymal region causing increased edema and shift with mass effect compressing the left ventricle. She was transferred from the radiology area to the ER. No vomiting. No fever. Severity: Severe Modifying factors: None REVIEW OF SYSTEMS: Constitutional: denies: chills, fever, recent illness, recent injury EENTM: denies: blurred vision, double vision, nose congestion Respiratory: denies: cough, shortness of breath Cardiac: denies: chest pain, irregular heart rate, lightheadedness, palpitations Gastrointestinal/Abdominal: denies: abdominal pain, diarrhea, nausea, vomiting, blood streaked stools Genitourinary: denies: dysuria, frequency, hematuria, pain Musculoskeletal: denies: joint pain, muscle pain Skin: denies: lesions, rash, jaundice, bruising Neurological: See HPI Hematologic/Lymphatic: denies: blood clots, easy bleeding, easy bruising Immunologic/allergic: denies: HIV/AIDS, transplant 10 systems reviewed and negative except as noted EXAM: GENERAL: Lying in bed, cloth over eyes HEAD: Atraumatic, normocephalic. EYES: Pupils equal round and reactive to light, extraocular movements intact, sclera anicteric, conjunctiva are normal. ENT: TMs normal, nares patent, oropharynx clear without exudates. Moist mucous membranes. NECK: Normal range of motion, supple without lymphadenopathy or JVD. LUNGS: Breath sounds clear to auscultation bilaterally and equal. No wheezes rales or rhonchi. HEART: Regular rate and rhythm without murmurs, rubs or gallops. ABDOMEN: Soft, nontender, normoactive bowel sounds. No guarding, no rebound. No masses appreciated. BACK: No CVA tenderness, no spinal tenderness, step-offs or deformities EXTREMITIES: Normal range of motion, no pitting or edema. No clubbing or cyanosis. NEUROLOGICAL: Baseline left facial arm and leg weakness. Headache, normal movement on the right PSYCH: Flat affect SKIN: Warm, dry, normal turgor, no visible rashes or lesions. Source: Patient Exam Limitations: No limitations - Medical/Surgical History Hx Asthma: Yes Hx Chronic Respiratory Disease: No Hx Diabetes: No Hx Cardiac Disease: No Hx Renal Disease: No Hx Cirrhosis: No Hx Alcoholism: No Hx HIV/AIDS: No Hx Splenectomy or Spleen Trauma: No Other PMH: asthma, stroke, 2 stents r corotid, l corotid, damon damon - Family History Significant Family History: No pertinent family hx - Social History Smoking Status: Never smoked Alcohol Use: Sober Drug Use: None Constitutional: Initial Vital Signs Temperature (C) 36.7 C 02/21/18 14:20 Heart Rate 61 02/21/18 14:20 Respiratory Rate 18 02/21/18 14:20 Blood Pressure 152/88 H 02/21/18 14:20 O2 Sat (%) 94 02/21/18 14:20 O2 Delivery Mode Room Air Allergies/Adverse Reactions: Penicillins Allergy (Verified 02/21/18 14:22) Rash Home Medications: Medication Instructions Recorded Atorvastatin Calcium [Lipitor 10 10 mg PO HS 02/16/18 mg (*)] Bacitracin/Polymyxin B Sulfate 1 each TP TID 02/16/18 [Polysporin Ointment] Baclofen 5 mg PO TID 02/16/18 Calcium Chloride 1 mg IVP DAILY PRN 02/16/18 Docusate Sodium [Colace 100 MG (*)] 100 mg PO BID 02/16/18 Escitalopram Oxalate [Lexapro] 20 mg PO HS 02/16/18 Famotidine [Pepcid 20 MG (*)] 20 mg PO BID 02/16/18 Folic Acid 0.4 mg PO HS 02/16/18 HYDROcodone/APAP 10/325 [[place] 1 tab PO Q4 PRN 02/16/18 10325 (*)] Hydrocodone/Acetaminophen [[place] 1 tab PO Q4H PRN 02/16/18 5/325 (*)] LORazepam [Ativan (*)] 0.5 mg PO HS 02/16/18 Metoprolol Tartrate [Lopressor 5 mg IVP Q6 PRN 02/16/18 Injection (RX)] Montelukast Sodium [Singulair 10 10 mg PO HS 02/16/18 mg (*)] NIFEdipine [Procardia 10 mg (*)] 10 mg PO Q8H PRN 02/16/18 Naloxone HCl [Narcan 0.4mg/ml (RX)] 0.2 mg IV .Q2MIN PRN 02/16/18 Ondansetron Odt [Zofran Odt 4 mg 4 mg PO Q6H PRN 02/16/18 (*)] Phenol [Chloraseptic spray (*)] 5 spray PO QID PRN 02/16/18 Polyethylene Glycol 3350 [Miralax 17 gm PO DAILY PRN 02/16/18 17 gm (*)] Gabapentin [Neurontin 300 MG (*)] 300 mg PO BID 02/21/18 Medical Decision Making - Diagnostics Imaging: Discussed imaging studies w/ pressure vessel inspector Radiologist ED Course/Re-evaluation: 2:25 p.m. I spoke with Dr. Hernan Nair from Neurosurgery who will come to evaluate. 3:[address] Nair has evaluated the patient. He feels that her worsening symptoms could be caused by the bleed verses the graft clotting off. Feels that it is not straightforward and will likely require further testing prior to intervention. Family is considering trying to take her back to [place]. In the meantime will admit the medical service ICU for treatment and continued workup. Differential Diagnosis: Partial list of the Differential diagnosis considered include but were not limited to; intracranial hemorrhage, seizure, infection and although unlikely based on the history and physical exam, I also considered urinary tract infection, pneumonia. Critical Care Time: Critical care time spent by me, Dr. Walker exclusive with this patient was 35 minutes, exclusive of the PA time exclusive of procedures. The organ system that was at risk was neurologic and I gave treatment, consultation, admission to prevent worsening of the patient's condition - Data Points Laboratory Results: Laboratory Results 02/21/18 14:55 02/21/18 14:55 Medications Given: Hydrocodone Bitart/Acetaminophen ([place] 10/325) 1 tab PO Q4 PRN PRN Reason: pain severe (7-10) Stop: 03/03/18 17:29 Last Admin: 02/27/18 19:55 Dose: 1 tab Hydrocodone Bitart/Acetaminophen ([place] 5/325) 1 tab PO Q4H PRN PRN Reason: Pain, Moderate (4-6) Stop: 03/03/18 17:29 Last Admin: 02/26/18 19:58 Dose: 1 tab Atorvastatin Calcium (Lipitor) 10 mg PO HS [facility] Stop: 08/20/18 20:59 Last Admin: 02/27/18 20:31 Dose: 10 mg Bacitracin/Polymyxin B Sulfate (Polysporin) 1 jonel TP TID [facility] Stop: 03/23/18 21:59 Last Admin: 02/28/18 13:04 Dose: Not Given Baclofen (Baclofen) 5 mg PO TID [facility] Stop: 08/20/18 21:59 Last Admin: 02/28/18 09:35 Dose: 5 mg Docusate Sodium (Colace) 100 mg PO BID [facility] Stop: 08/20/18 20:59 Last Admin: 02/28/18 09:34 Dose: 100 mg Escitalopram Oxalate (Lexapro) 20 mg PO HS [facility] Stop: 08/20/18 20:59 Last Admin: 02/27/18 20:32 Dose: 20 mg Famotidine (Pepcid) 20 mg PO BID [facility] Stop: 08/20/18 20:59 Last Admin: 02/28/18 09:34 Dose: 20 mg Folic Acid (Folic Acid) 0.5 mg PO HS [facility] Stop: 08/20/18 20:59 Last Admin: 02/27/18 20:30 Dose: 0.5 mg Gabapentin (Neurontin) 300 mg PO BID [facility] Stop: 08/20/18 20:59 Last Admin: 02/28/18 09:35 Dose: 300 mg Hydromorphone HCl (Dilaudid) 0.2 - 0.4 mg IVP Q2HRS PRN PRN Reason: Pain, Severe Unable to Take PO Stop: 03/03/18 19:39 Last Admin: 02/25/18 01:59 Dose: 0.4 mg Lidocaine/Diphenhydramine/Alumin/Mg (Maalox/Diphenhydramine/Lido) 5 ml PO PRN PRN PRN Reason: Mucositis, Mouth Pain Stop: 08/25/18 13:34 Last Admin: 02/27/18 20:41 Dose: 1 jonel Lorazepam (Ativan) 0.5 mg PO HS [facility] Stop: 08/20/18 20:59 Last Admin: 02/27/18 20:33 Dose: 0.5 mg Montelukast Sodium (Singulair) 10 mg PO HS [facility] Stop: 08/20/18 20:59 Last Admin: 02/27/18 20:32 Dose: 10 mg Sodium Chloride (Salt Tablet) 1,000 mg PO TID [facility]NIE Stop: 08/22/18 21:59 Last Admin: 02/28/18 09:36 Dose: 1,000 mg Discontinued Medications Sodium Chloride (Sodium Chloride 3%) 500 mls @ 50 mls/hr IV CONT [facility]NIE Stop: 08/20/18 16:59 Last Admin: 02/26/18 18:00 Dose: 500 mls Departure - Departure Disposition: [facility] Inpatient Acute Clinical Impression: Intracranial hemorrhage Condition: Critical
[2018-02-21 15:11] LABS: PLATELET COUNT 296 10^3/uL (150-400)
[2018-02-21 15:17] LABS: INR 1.03 (0.83-1.16); PROTIME(PATIENT) 13.7 SEC (12.0-15.0)
[2018-02-21] MEDS ORDERED: ALTEPLASE 2 MG VIAL IVP PRN (16:47)
[2018-02-21] MEDS ORDERED: POLYETHYLENE GLYCOL 3350 17 GM PKT PO PRN (17:30)
[2018-02-21] MEDS ORDERED: NIFEdipine 10 MG CAP PO PRN (17:30)
[2018-02-21] MEDS: SODIUM Cl 3% 500 ML IV SCH (17:42)
[2018-02-21] MEDS: HYDROCODONE/APAP 10/325 TAB PO PRN (18:36)
[2018-02-21] MEDS ORDERED: oxyCODONE IR 5 MG TAB PO PRN (19:40)
[2018-02-21] MEDS ORDERED: PROMETHAZINE HCL 25 MG/ML INJ IVP PRN (19:40)
[2018-02-21] MEDS ORDERED: ONDANSETRON 4 MG/2 ML VIAL IVP PRN (19:40)
[2018-02-21] MEDS ORDERED: ACETAMINOPHEN 325 MG TAB PO PRN (19:40)
[2018-02-21] MEDS: MONTELUKAST SODIUM 10 MG TAB PO SCH (20:34)
[2018-02-21] MEDS: DOCUSATE SODIUM 100 MG CAP PO SCH (20:34)
[2018-02-21] MEDS: FOLIC ACID 1 MG TAB PO SCH (20:34)
[2018-02-21] MEDS: GABAPENTIN 300 MG CAP PO SCH (20:34)
[2018-02-21] MEDS: ATORVASTATIN CALCIUM 10 MG TAB PO SCH (20:34)
[2018-02-21] MEDS: LORazepam 0.5 MG TAB PO SCH (20:34)
[2018-02-21] MEDS: FAMOTIDINE 20 MG TAB PO SCH (20:34)
[2018-02-21] MEDS: ESCITALOPRAM OXALATE 10 MG TAB PO SCH (20:35)
[2018-02-21] MEDS: HYDROmorphONE/DILAUDID 1 MG/ML INJ IVP PRN (20:43)
--- NOTE | 2018-02-21 20:57 | GHP ---
DATE OF ADMISSION: 02/21/2018 CHIEF COMPLAINT: Headache. HISTORY: The patient is a 42-year-old female with moyamoya disease with a history of stroke. She hughes s previously had bilateral carotid stents. She was recently at [facility] where she underwent a right- sided craniotomy on February 08 for a cranial bypass. Postsurgically, she developed left-sided weak ness and was diagnosed with a right intra cerebral hemorrhage. She was transferred to [place] and as been at our inpatient rehab unit for 1 week. She was starting to gain some strength on her left s rogelio. Today, she developed a worsening headache, currently it is 7/10, and she was noted by staff at rehab to have an increasingly flat affect which was a change from previous. A stat head CT was order ed which showed an increased mass effect and she was transferred to the emergency room. She was seen in the emergency room by Dr. Nair and she is being admitted to ICU for 3% saline drip for cerebral edema. PAST MEDICAL HISTORY: 1. Moyamoya disease. 2. History of stroke. 3. Stenting of bilateral carotid arteries and subsequent cranial bypass surgery recently at [facility] . 4. Hyperlipidemia. 5. Asthma. MEDICATIONS: Please see computer record for full detailed list. ALLERGIES: Penicillin. SOCIAL HISTORY: No smoking. No alcohol. She lives with her and 2 children ages 7 and 9. 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 REVIEW OF SYSTEMS: Complete review of systems obtained. Review of systems negative for constitution al, HEENT, GI, pulmonary, cardiovascular, , hematologic, endocrine, psych, except for positives as in HPI. FAMILY HISTORY: Reviewed and noncontributory to presenting complaint. PHYSICAL EXAMINATION: GENERAL: Well-developed, well-nourished female, in no distress. She is lying in bed with a towel over her eyes appearing to be in severe pain from a headache. VITAL SIGNS: Tem p is 36.7, pulse 68, blood pressure 131/81, saturating 90% on room air. HEENT: Normal conjunctivae. Pupils equal and reactive to light. ENT: Normal ears, nose. Hearing intact. Normal teeth. Orop harynx moist. NECK: Trachea midline. No thyromegaly. CHEST: Normal respiratory effort. LUNGS: Clear to auscultation bilaterally. CARDIOVASCULAR: Regular rhythm. No murmur. No lower extremity edema. ABDOMEN: Soft, nontender. No hepatosplenomegaly. SKIN: Warm, dry, intact. No rash. MUSC ULOSKELETAL: No cyanosis or clubbing. NEUROLOGIC: Strength it is 0/5 left upper extremity, 4/5 lef t lower extremity. Worse distally than proximally. Alert and oriented x3. Normal affect. Normal j udgment and insight. Normal memory. LABORATORY DATA: White count 11.8, hematocrit 37.7, platelets 296. Sodium 141, potassium 4.2, chlor rogelio 103, bicarb 28, BUN 11, creatinine 0.6, glucose 96, INR is 1.03. Head CT shows increased mass ef fect and swelling at the right intraparenchymal hemorrhage. This case was discussed with Dr. Walker, the emergency room provider regarding emergency room course . Medical records review: I reviewed records from rehabilitation including Dr. Velasquez's documentati on at time of admission to rehab. ASSESSMENT/PLAN: 1. Cerebral edema as a complication of recent intracranial hemorrhage. Per Dr. Nair we will start her on 3% saline. She is suffering terribly from recurrent headache, we will prescribe IV Dilaudid. 2. Left-sided hemiparesis secondary to intracerebral hemorrhage. Neuro checks have been ordered by Neurosurgery. 3. Moyamoya disease, status post recent cranial bypass. Neurosurgery may want to evaluate patency o f the bypass graft. Will defer to Dr. Nair. CODE STATUS: Full. ADMISSION STATUS: Will admit to inpatient, anticipate greater than 2 midnights given severity of pre sentation. DVT PROPHYLAXIS: Cannot do pharmacologic prophylaxis given a recent head bleed. We will prescribe SC Ds. /[id number]/MODL
[2018-02-21] MEDS: BACITRACIN/POLYMYXIN B SULFATE 28.3 GM TUBE TP SCH (22:51)
[2018-02-21] MEDS: BACLOFEN 10 MG TAB PO SCH (22:51)
[2018-02-22 05:35] LABS: PLATELET COUNT 268 10^3/uL (150-400)
--- NOTE | 2018-02-22 06:44 | GCON ---
NEUROSURGICAL CONSULTATION DATE OF CONSULTATION: 02/21/2018 REASON FOR CONSULTATION: Intracranial hemorrhage. History of STA-MCA bypass surgery at [place]. 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 She had a long history of problems in the brain that began in September when she had TIA-like symptoms, and an MRI was ordered by her neurologist, Dr. Kyle Choudhary, who no ticed stenosis of the intracranial carotid artery on the right side. The patient in November 2015, under went an angiogram by Dr. 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 There was damage to the left extracrani al carotid artery, and the patient had a lesion with significant narrowing of the right intracranial carotid artery. She was later scheduled for stenting of this artery. She underwent stenting of the left carotid artery extracranially and then later in January 2016, underwent stenting and angioplas ty of the intracranial carotid artery on the right-hand side and was placed on Plavix at that time. Unfortunately, she developed recurrent stenosis, and in the spring 2016, she underwent repeat angiopl asty of the right internal carotid artery, but was noted to have some narrowing of the left internal carotid artery, and it was his feeling at that time this was a variant of moyamoya disease due to the location of the narrowing. She did see a domestic freight forwarder in October 2016 at [facility], and genetics testing for connective tissue disease was negative, but naturally this did not elucidate the issue on moyamo ya. She again developed symptoms of cerebral ischemia and underwent ojezfcar-ke-bjkazywz carotid art luis bypass on the right-hand side at [facility], complicated by a postoperative intracranial hemorrhage. This left her with left upper extremity plegia, but she was still able to use the left leg and lift the left leg off the bed. She was also conversant and stayed at [place] for a few days and then was transferred to inpatient rehab here in [place], closer to her home, where she was doing fine until this morning. She had been suffering from headaches during her stay at rehab, but these had gotten worse over the last several days and were particularly acute this morning. Her level of m entation was somewhat diminished, and [facility] demonstrated the prior hemorrhage in the right hemisphere undern eath the craniotomy flap, but now there is significant swelling and edema surrounding it. Neurosurge ry was consulted. PAST MEDICAL HISTORY: Significant for asthma and the previous intracranial vascular problem as trey welch above. FAMILY HISTORY: She has no family history of intracranial vascular disease like this. ALLERGIES: Penicillin. MEDICATIONS: Calcium, baclofen, Colace, Pepcid, Lexapro, folate, [place], Ativan, Lopressor, nifedipin e, Zofran, and MiraLAX. PHYSICAL EXAMINATION: VITAL SIGNS: Temperature 36.7, heart rate 61, respiratory rate 18, blood pres sure 152/88, saturation 94%. NEUROLOGIC: Her eyes are open. She is conversant and able to talk wit h me. She does have a terrible headache. There is no evidence of infection of her cranial incision. She follows commands in all 4 extremities except the left upper extremity where she is plegic. She is able to lift the left leg off the bed, and this is consistent with her prior neurologic examinati on following surgery. LABORATORY DATA: Sodium is noted to be 141. ASSESSMENT: The patient is a 42-year-old with a life-threatening problem with cytotoxic cerebral lisa ma surrounding an intracranial hemorrhage. I in fact discussed this with Dr. Gotti at [facility], and he and I both felt that this does represent the normal evolution of her postoperative hemorrhage, and we would make every effort to manage this by pushing her sodiums higher. She will be admitted to the ICU. We will try to get her sodiums up to the 145-150 range in effort to improve th e edema surrounding this and offer supportive care in the meantime. There would be no interest in do ing a decompressive craniotomy in the area of the hemorrhage as this occurred at the site of her anas tomosis, and almost certainly this kind of surgery would disrupt the anastomosis and was therefore no t suggested. We do not currently know the patency of the anastomosis, but it is not necessarily germ ane in the immediate management of this problem, and I have discussed this at length with the family. We could assess this by considering cerebral angiogram, more a noninvasive angiogram of the brain, but I do not think it will currently change our management. She has been off Plavix since the time o f her surgery, and this too was a treatment decision made at [place] that I do not see a reason to c hange course on this currently. I briefly discussed external ventricular drainage with the family bu t certainly not needed in the context of a patient who is affectively a GCS of 15, fully conversant, and would do very little to alleviate the mass effect of the cytotoxic edema, which is the primary ch allenge in this case. We also discussed transfer back to [facility]. The family elected to stay here, but they also are well aware that we would support such a decision if they chose to go th at route. We will continue to follow the patient carefully here at [facility]. /[id number]/MODL
[2018-02-22] MEDS: BACLOFEN 10 MG TAB PO SCH ×3 (07:39→21:05)
[2018-02-22] MEDS: FAMOTIDINE 20 MG TAB PO SCH ×2 (07:39→21:04)
[2018-02-22] MEDS: DOCUSATE SODIUM 100 MG CAP PO SCH ×2 (07:39→21:04)
[2018-02-22] MEDS: GABAPENTIN 300 MG CAP PO SCH ×2 (07:39→21:04)
--- NOTE | 2018-02-22 08:04 | PDMN ---
Medical Necessity Medical necessity: Pt meets inpt criteria per MD order and [facility] M-[id number], Traumatic Brain Injury, Nonsurgical Treatment. 42 y/o w/hx of Moyamoya disease and stroke , s/p recent cranial bypass, admitted from inpt rehab w/cytotoxic cerebral edema surrounding an intracranial hemorrhage w/L side hemiparesis. Anticipate> 2MN given severity of condition for close monitoring/treatment.
[2018-02-22] MEDS: HYDROmorphONE/DILAUDID 1 MG/ML INJ IVP PRN ×5 (08:34→23:56)
--- NOTE | 2018-02-22 08:44 | SOAPPROG ---
SOAP Progress Note Assessment/Plan: Assessment: 42 yo female with history of Damon damon s/p stenting of her right periclinoid carotid artery at [facility] twice. Also has a left carotid stent due to iatrogenic injury to the left carotid and underwent a right STAMCA bypass at [place] recently and suffered a post op right ICH at the operative site. Transferred her from rehab due to decreased mentation and CTH showed evolving RIght ICH with significant edema. GCS 15 this AM Plan: Continue to drive Na up to >145 Follow clinically Manage NUNEZ pain Dr Nair saw patient this AM 02/22/18 08:38 02/22/18 09:00 Subjective: Lying in bed comfortably. Reports mild NUNEZ this AM. Ongoing LUE paralysis and mild left facial droop. Objective: Vital Signs Temp Pulse Resp BP Pulse Ox 36.7 C 50 L 10 L 114/65 91 L 02/21/18 14:20 02/22/18 07:56 02/22/18 07:56 02/22/18 07:56 02/22/18 07:56 Laboratory Results 02/22/18 05:30 02/22/18 05:30 02/21/18 02/22/18 02/23/18 05:59 05:59 05:59 Intake Total 399 Output Total 850 250 Balance -451 -250 PT 13.7 SEC (12.0-15.0) 02/21/18 14:55 INR 1.03 (0.83-1.16) 02/21/18 14:55 Neuro: Eyes open, speech clear, follows commands LUE paralysis, able to wiggle toes left foot RUE/RLE 5/5 throughout, sens +LT ICD10 Worksheet Patient Problems: Problems Problem Status Onset Intracranial hemorrhage Acute CVA (cerebral vascular accident) Acute
[2018-02-22] MEDS: SODIUM Cl 3% 500 ML IV SCH (13:24)
[2018-02-22] MEDS: BACITRACIN/POLYMYXIN B SULFATE 28.3 GM TUBE TP SCH ×3 (16:01→22:10)
--- NOTE | 2018-02-22 18:21 | HOSPPROG ---
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 * chronic asthma, stable PLANS: * Low stimulus environment * Follow blood pressures closely avoiding high or low blood pressures * Current attempts to get her sodium up to approximately 145 with concentrated saline and I recommended to her that she consider eating some salty foods she has the appetite * Pain and nausea medicines Seen by me today on multidisc rounds and hospitalist rounds Reviewed w neurosurgery SUBJECTIVE: Still having headache but is finding it much better controlled with some pain medicine and control of her nausea here so far No new neurologic symptoms or worsening of her ongoing symptoms No nausea or vomiting at the moment but has required some antiemetic OBJECTIVE Vitals reviewed: All stable without fever so far Automotive Service Technician, my review: Sinus Exam: alert oriented, appears mildly uncomfortable mentation is good, speech and language functions normal Her face so some weakness on the left with smile or other expressions but symmetric at rest; left arm paretic, left leg with that at this time good strength throughout skin warm dry color ok resps not labored lungs clear BSs heart regular abd soft nondistended nontender, bowel sounds present limbs warm, no edema iv site ok Objective: Vital Signs Temp Pulse Resp BP Pulse Ox 36.7 C 69 8 L 110/61 93 02/21/18 14:20 02/22/18 16:00 02/22/18 16:00 02/22/18 16:00 02/22/18 16:00 Laboratory Results 02/22/18 05:30 02/22/18 16:00 02/21/18 02/22/18 02/23/18 06:59 06:59 06:59 Intake Total 399 366 Output Total 850 550 Balance -451 -184 PT 13.7 SEC (12.0-15.0) 02/21/18 14:55 INR 1.03 (0.83-1.16) 02/21/18 14:55 - Time Spent With Patient Time Spent with Patient: greater than 35 minutes Time Spent with Patient: Greater than 35 minutes spent on this patients care, greater than 50% of time spent counseling, educating, and coordinating care regarding the above mentioned plan. ICD10 Worksheet Patient Problems: Problems Problem Status Onset Intracranial hemorrhage Acute CVA (cerebral vascular accident) Acute
--- NOTE | 2018-02-22 19:28 | GCON ---
PULMONARY CRITICAL CARE CONSULTATION. DATE OF CONSULTATION: 02/22/2018 REASON FOR CONSULTATION: Intensive care unit evaluation and medical management of intracranial hemor rhage and edema. HISTORY: The patient is a very pleasant 42-year-old who has Moyamoya disease. She had a recent intr acranial bypass at [facility] in mid January. External, internal carotid artery bypass was done on t he right. This was associated with postoperative intracranial hemorrhage and left upper extremity we akness. As she lives in [place], she was transferred here to inpatient rehab. She was doing relativ adeel well there but yesterday had increased headache and changes in her mentation. CT scan showed incr eased edema surrounding the area of her previous bleed in the right hemisphere. She has had TIA and ischemic symptoms since 2016 and has had evaluations in [place] initially by Dr. Choudhary and was subsequently seen elsewhere with evaluation, angiographies, stenting and angioplasty, e tc. She is admitted to the intensive care unit for neuro checks and observation. Neurosurgery has been i n contact with her physicians at [facility]. It is felt that sodium needs to be optimized in the 145-1 50 range. She is on hypertonic saline at 35 mL/h. She is doing well. She does have ongoing headach e, but currently feels it is being well controlled with medications. She has had no change in her ne urologic symptoms. PAST MEDICAL HISTORY: Remarkable for mild asthma. DRUG ALLERGIES: Penicillin. SOCIAL HISTORY: The patient is , with a very supportive . Alcohol and smoking are neg ative. FAMILY HISTORY: Negative/noncontributory. REVIEW OF SYSTEMS: A 10-point review of systems is negative except as mentioned above. She has had no breathing problems, no problems with her asthma. PHYSICAL EXAMINATION: GENERAL: Reveals a very pleasant woman who is lying comfortably in bed. She states her headache pain is 2/10 at this point in time. The room is dark secondary to photophobia. V ITAL SIGNS: Blood pressure is 110/65, heart rate 70 with sinus rhythm on the monitor. She is on sue m air with saturations of 93%. Respiratory rate is 12. HEENT: Unremarkable for lymphadenopathy or thyromegaly. There is no obvious jugular venous distention. Pupils were not currently evaluated in the dark room. CHEST: Clear bilaterally. Excursions are normal. HEART: Regular in rate and rhyth m without murmurs or gallops. ABDOMEN: Soft, nontender. Bowel sounds are present. EXTREMITIES: U nremarkable for edema, cords, or tenderness. NEUROLOGIC: Remarkable for weakness of the left upper ex tremity. DATA BASE: CT scan head is as outlined above. LABORATORY: White blood cell count is 9600, hematocrit 37. Platelets are normal. PT, INR were norm al on admission. Initial sodium was 141, current sodium is 140. Basic metabolic panel is otherwise normal. ASSESSMENT: 1. Recent intracerebral hemorrhage, now with surrounding increased edema and neurologic changes. Th is is associated with headache. She is admitted to the intensive care unit for neuro checks and to sl owly increase her sodium with the use of hypertonic saline. 2. History of asthma. This is quite stable, without any wheezing or evidence of difficulties with h er asthma. She is on montelukast. She rarely uses an albuterol inhaler. 3. Metabolic: No issues identified. PLAN AND RECOMMENDATIONS: Patient will be kept in the intensive care unit. Hypertonic saline will b e continued. Sodium will be followed every 6 hours. She will be placed on a 1200 cc fluid restricti on. This is to include all oral fluids. Appropriate pain control will be maintained. A bowel abelino col will be initiated and used as needed. Further plans and recommendations will be made based on her progress over the next 12 to 24 hours. /[id number]/MODL
[2018-02-22] MEDS: ATORVASTATIN CALCIUM 10 MG TAB PO SCH (21:04)
[2018-02-22] MEDS: LORazepam 0.5 MG TAB PO SCH (21:04)
[2018-02-22] MEDS: MONTELUKAST SODIUM 10 MG TAB PO SCH (21:04)
[2018-02-22] MEDS: FOLIC ACID 1 MG TAB PO SCH (21:04)
[2018-02-22] MEDS: ESCITALOPRAM OXALATE 10 MG TAB PO SCH (21:04)
[2018-02-23] MEDS: HYDROmorphONE/DILAUDID 1 MG/ML INJ IVP PRN ×3 (03:51→20:19)
[2018-02-23] MEDS: SODIUM Cl 3% 500 ML IV SCH (03:52)
[2018-02-23] MEDS: GABAPENTIN 300 MG CAP PO SCH ×2 (09:53→20:24)
[2018-02-23] MEDS: DOCUSATE SODIUM 100 MG CAP PO SCH ×2 (09:53→20:23)
[2018-02-23] MEDS: FAMOTIDINE 20 MG TAB PO SCH ×2 (09:53→20:23)
[2018-02-23] MEDS: BACITRACIN/POLYMYXIN B SULFATE 28.3 GM TUBE TP SCH ×3 (09:54→20:24)
[2018-02-23] MEDS: BACLOFEN 10 MG TAB PO SCH ×3 (09:56→20:24)
--- NOTE | 2018-02-23 11:57 | HOSPPROG ---
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 * chronic asthma, stable PLANS: * Low stimulus environment * Follow blood pressures closely avoiding high or low blood pressures * Current attempts to get her sodium up to approximately 145 with concentrated saline, 143 this AM, and I recommended to her that she consider eating some salty foods she has the appetite * Continue monitoring Na q6 hours * Pain and nausea medicines Seen by me today on multidisc rounds and hospitalist rounds Reviewed w neurosurgery Subjective: Patient reports L sided weakness Objective: Vital Signs Temp Pulse Resp BP Pulse Ox 37.0 C 59 L 16 148/75 H 94 02/23/18 00:00 02/23/18 10:00 02/23/18 10:00 02/23/18 10:00 02/23/18 10:00 Laboratory Results 02/22/18 05:30 02/23/18 03:59 02/22/18 02/23/18 02/24/18 05:59 05:59 05:59 Intake Total 399 1081 Output Total 850 1000 300 Balance -451 81 -300 PT 13.7 SEC (12.0-15.0) 02/21/18 14:55 INR 1.03 (0.83-1.16) 02/21/18 14:55 - Physical Exam Constitutional: no apparent distress Eyes: PERRL Ears, Nose, Mouth, Throat: moist mucous membranes Cardiovascular: regular rate and rhythym Respiratory: no respiratory distress, clear to auscultation Gastrointestinal: normoactive bowel sounds Genitourinary: no bladder fullness Skin: warm Musculoskeletal: no muscle tenderness Neurologic: AAOx3, weakness (L sided) Psychiatric: interacting appropriately ICD10 Worksheet Patient Problems: Problems Problem Status Onset Intracranial hemorrhage Acute CVA (cerebral vascular accident) Acute
--- NOTE | 2018-02-23 15:30 | PDINTPN ---
Internal Medicine Physician Progress Note Assessment/Plan: Assessment: Abnormal mental status: Improving. Recent intracranial hemorrhage/stroke associated with vasogenic edema. Sodium: Values staying around 140. Slow to come up. On fluid restriction and hypertonic saline. Prophylaxis: SCDs and famotidine Plan: Continue present care. Continue to monitor sodiums. Hypertonic sodium increased to 40. May need to be increased further. Can consider sodium chloride tablets 1 g three times daily. She did eventually go back to inpatient rehab on this. 30 min of critical care time spent directly with the patient. Discussed with the patient, nursing, and the ICU multi disciplinary team. Subjective: Feels a little better. Headache last. Otherwise unchanged. Objective: Vital Signs Temp Pulse Resp BP Pulse Ox 37.0 C 59 L 16 124/62 H 94 02/23/18 00:00 02/23/18 14:00 02/23/18 14:00 02/23/18 14:00 02/23/18 14:00 Laboratory Results 02/22/18 05:30 02/23/18 12:45 02/22/18 02/23/18 02/24/18 05:59 05:59 05:59 Intake Total 399 1081 Output Total 850 1000 300 Balance -451 81 -300 PT 13.7 SEC (12.0-15.0) 02/21/18 14:55 INR 1.03 (0.83-1.16) 02/21/18 14:55 Laboratory Tests 02/22/18 02/23/18 02/23/18 22:00 03:59 12:45 Sodium 138 143 140 Physical Exam - Physical Exam General Appearance: alert, no apparent distress EENT: PERRL/EOMI, other (Left facial droop. On room air) Neck: normal inspection Respiratory: lungs clear, normal breath sounds Cardiac/Chest: bradycardia Abdomen: normal bowel sounds, non-tender, soft Skin: normal color, warm/dry Extremities: No pedal edema Neuro/Psych: No no motor/sensory deficits (Unchanged left-sided deficits), No cognition abnormalities ICD10 Worksheet Patient Problems: Problems Problem Status Onset Intracranial hemorrhage Acute CVA (cerebral vascular accident) Acute
--- NOTE | 2018-02-23 16:20 | ASMTCASEMG ---
Living Arrangements What is your living Answers: With Spouse arrangement? Who do you live with? Type Of Residence What kind of residence do Answers: House you live in? 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 Patient underwent a right-sided craniotomy on 02-08-18 for a cranial bypass, went to rehab, but developed severe headache with an increasingly flat affect. She has been admitted for cerebral edema as a complication of recent intracranial hemorrhage. OT/PT/UTILITY REPAIRER have been ordered. Likely patient will return to [facility] inpatient rehab when she is ready for d/c. CM will follow. Date Signed: 02/23/2018 04:19 PM Electronically Signed By:Nevin Valdez LCSW
[2018-02-23] MEDS: LORazepam 0.5 MG TAB PO SCH (20:23)
[2018-02-23] MEDS: ESCITALOPRAM OXALATE 10 MG TAB PO SCH (20:23)
[2018-02-23] MEDS: MONTELUKAST SODIUM 10 MG TAB PO SCH (20:23)
[2018-02-23] MEDS: FOLIC ACID 1 MG TAB PO SCH (20:23)
[2018-02-23] MEDS: ATORVASTATIN CALCIUM 10 MG TAB PO SCH (20:23)
[2018-02-23] MEDS: SODIUM CHLORIDE 1,000 MG TAB PO SCH (20:24)
[2018-02-24] MEDS: HYDROmorphONE/DILAUDID 1 MG/ML INJ IVP PRN ×3 (03:00→21:41)
[2018-02-24] MEDS: SODIUM Cl 3% 500 ML IV SCH ×3 (03:05→22:35)
--- NOTE | 2018-02-24 09:10 | NEUSURGPN ---
Assessment/Plan: Assessment: 42 yo female with history of Damon damon s/p stenting of her right periclinoid carotid artery at [facility] twice. Also has a left carotid stent due to iatrogenic injury to the left carotid and underwent a right STAMCA bypass at [place] recently and suffered a post op right ICH at the operative site. Transferred her from rehab due to decreased mentation and CTH showed evolving Right ICH with significant edema. Plan: - neuro stable - Goal Na is > 145. Continue 3% at 50 cc/hr. This am Na is 145. Continue to follow labs - Mobilize with PT/OT - Follow clinically. Please notify neurosurgery with any changes in neuro status/exam Discussed with Dr. Velasco. Subjective: No new overnight issues. Patient was able to sleep last night. Headache improved. Objective: Awake. Alert. PERRL. Left facial droop LUE paralysis Following commands and moving RUE and bilateral LE - Physician Discussed Patient with Dr.: Velasco Neurosurgery Physical Exam - Vitals, I&O, Labs I and O 02/23/18 02/24/18 02/25/18 05:59 05:59 05:59 Intake Total 1081 1855 Output Total 1000 900 Balance 81 955 Intake: Oral (ml) 200 740 IV Infused (ml) 881 1115 SODIUM Cl 3% 500 ml @ 50 881 1115 mls/hr IV CONT CONNIE Rx#: [id number] Output: Urine (ml) 1000 900 Bedpan 1000 900 Other: Number of Voids Bedpan 1 1 Incontinence 2 Vital Signs Temp Pulse Resp BP Pulse Ox 37.1 C 54 L 15 135/90 H 97 02/24/18 04:00 02/24/18 08:08 02/24/18 08:08 02/24/18 08:08 02/24/18 08:08 Laboratory Results 02/22/18 05:30 02/24/18 06:00 ICD10 Worksheet Patient Problems: Problems Problem Status Onset Intracranial hemorrhage Acute CVA (cerebral vascular accident) Acute
[2018-02-24] MEDS: BACLOFEN 10 MG TAB PO SCH ×3 (09:20→21:03)
[2018-02-24] MEDS: DOCUSATE SODIUM 100 MG CAP PO SCH ×2 (09:20→21:04)
[2018-02-24] MEDS: FAMOTIDINE 20 MG TAB PO SCH ×2 (09:20→21:04)
[2018-02-24] MEDS: GABAPENTIN 300 MG CAP PO SCH ×2 (09:20→21:10)
[2018-02-24] MEDS: SODIUM CHLORIDE 1,000 MG TAB PO SCH ×3 (09:21→21:04)
[2018-02-24] MEDS: BACITRACIN/POLYMYXIN B SULFATE 28.3 GM TUBE TP SCH ×3 (09:27→21:14)
--- NOTE | 2018-02-24 11:18 | HOSPPROG ---
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 * chronic asthma, stable PLANS: * Low stimulus environment * Follow blood pressures closely avoiding high or low blood pressures * Current attempts to get her sodium up to approximately 145 with concentrated saline, 145 this AM, added NaCl tabs 1000 mg TID yesterday * Continue monitoring Na q6 hours * Pain and nausea medicines Seen by me today on multidisc rounds and hospitalist rounds Subjective: Patient reports she is feeling better today Objective: Vital Signs Temp Pulse Resp BP Pulse Ox 37.1 C 54 L 15 135/90 H 97 02/24/18 04:00 02/24/18 08:08 02/24/18 08:08 02/24/18 08:08 02/24/18 08:08 Laboratory Results 02/22/18 05:30 02/24/18 06:00 02/23/18 02/24/18 02/25/18 05:59 05:59 05:59 Intake Total 1081 1855 Output Total 1000 900 Balance 81 955 PT 13.7 SEC (12.0-15.0) 02/21/18 14:55 INR 1.03 (0.83-1.16) 02/21/18 14:55 - Physical Exam Constitutional: no apparent distress Eyes: PERRL Ears, Nose, Mouth, Throat: moist mucous membranes Cardiovascular: regular rate and rhythym Respiratory: no respiratory distress, clear to auscultation Gastrointestinal: soft, non-tender abdomen Genitourinary: no bladder tenderness Skin: warm Musculoskeletal: generalized weakness Neurologic: AAOx3, weakness Psychiatric: interacting appropriately ICD10 Worksheet Patient Problems: Problems Problem Status Onset Intracranial hemorrhage Acute CVA (cerebral vascular accident) Acute
--- NOTE | 2018-02-24 15:10 | ASMTCMCOM ---
CM Note CM Note Notes: Spoke with Josy from inpatient rehab and they are following patient. However, they need a new order so they can re-eval before patient returns to their program. Requested order. CM will follow. Date Signed: 02/24/2018 03:07 PM Electronically Signed By:Nevin Valdez LCSW
--- NOTE | 2018-02-24 17:31 | PDINTPN ---
Bicycle Mechanic Progress Note Assessment/Plan: Assessment: Abnormal mental status: Improved. Recent intracranial hemorrhage/stroke associated with vasogenic edema. Sodium: Values now up to 145. On fluid restriction and hypertonic saline at 50 and salt tablet. Prophylaxis: SCDs and famotidine Plan: Continue present care. Continue to monitor sodiums. Continue hypertonic sodium at 50 for now, continue sodium chloride tablets 1 g three times daily. 15 min of critical care time spent directly with the patient. Discussed with the patient, nursing, and the ICU multi disciplinary team. Subjective: No changes. Doing okay Objective: Vital Signs Temp Pulse Resp BP Pulse Ox 37.1 C 66 14 149/85 H 97 02/24/18 04:00 02/24/18 16:00 02/24/18 16:00 02/24/18 16:00 02/24/18 16:00 Laboratory Results 02/22/18 05:30 02/24/18 11:49 02/23/18 02/24/18 02/25/18 05:59 05:59 05:59 Intake Total 1081 1855 354 Output Total 1000 900 450 Balance 81 955 -96 PT 13.7 SEC (12.0-15.0) 02/21/18 14:55 INR 1.03 (0.83-1.16) 02/21/18 14:55 Physical Exam - Physical Exam General Appearance: alert, no apparent distress Neuro/Psych: No no motor/sensory deficits (Left-sided deficits without change), No cognition abnormalities ICD10 Worksheet Patient Problems: Problems Problem Status Onset Intracranial hemorrhage Acute CVA (cerebral vascular accident) Acute
[2018-02-24] MEDS: MONTELUKAST SODIUM 10 MG TAB PO SCH (21:03)
[2018-02-24] MEDS: LORazepam 0.5 MG TAB PO SCH (21:03)
[2018-02-24] MEDS: ATORVASTATIN CALCIUM 10 MG TAB PO SCH (21:03)
[2018-02-24] MEDS: ESCITALOPRAM OXALATE 10 MG TAB PO SCH (21:04)
[2018-02-24] MEDS: FOLIC ACID 1 MG TAB PO SCH (21:04)
[2018-02-25] MEDS: HYDROmorphONE/DILAUDID 1 MG/ML INJ IVP PRN (01:59)
[2018-02-25] MEDS: SODIUM Cl 3% 500 ML IV SCH ×2 (08:11→17:50)
[2018-02-25] MEDS: BACITRACIN/POLYMYXIN B SULFATE 28.3 GM TUBE TP SCH ×3 (08:56→22:16)
[2018-02-25] MEDS: FAMOTIDINE 20 MG TAB PO SCH ×2 (08:57→21:36)
[2018-02-25] MEDS: GABAPENTIN 300 MG CAP PO SCH ×2 (08:57→21:32)
[2018-02-25] MEDS: BACLOFEN 10 MG TAB PO SCH ×3 (08:57→21:34)
[2018-02-25] MEDS: SODIUM CHLORIDE 1,000 MG TAB PO SCH ×3 (08:57→21:36)
[2018-02-25] MEDS: DOCUSATE SODIUM 100 MG CAP PO SCH ×2 (08:57→21:35)
--- NOTE | 2018-02-25 10:52 | PDINTPN ---
Protective Signal Installer Helper Progress Note Assessment/Plan: Assessment: Abnormal mental status: Improved. Recent intracranial hemorrhage/stroke associated with vasogenic edema. Sodium: Sodium up to 147 this a.m.. On fluid restriction of 1200. This can be liberalized to 1500. Remains on hypertonic saline at 50 and salt tablets. Prophylaxis: SCDs and famotidine. Asthma: Stable, no issues. On montelukast. Not requiring inhaled therapies. Plan: Continue present care. Continue to monitor sodiums Q6H. Continue hypertonic sodium at 50 for now - per NS, continue sodium chloride tablets 1 g three times daily. DVT prophylaxis with enoxaparin once okayed by neuro surgery 20 min of critical care time spent directly with the patient. Discussed with the patient, nursing, and the ICU multi disciplinary team. Subjective: Headache persists. Some photophobia. Wants to take more oral fluids/smoothies. Objective: Vital Signs Temp Pulse Resp BP Pulse Ox 36.8 C 64 16 147/71 H 94 02/25/18 08:00 02/25/18 10:00 02/25/18 10:00 02/25/18 10:00 02/25/18 10:00 Laboratory Results 02/22/18 05:30 02/25/18 06:00 02/24/18 02/25/18 02/26/18 05:59 05:59 05:59 Intake Total 1855 1729 220 Output Total 900 1275 450 Balance 955 454 -230 PT 13.7 SEC (12.0-15.0) 02/21/18 14:55 INR 1.03 (0.83-1.16) 02/21/18 14:55 Physical Exam - Physical Exam General Appearance: other (Unchanged examination. Stable. Oriented x3. Verbal responses are good. Left side weakness unchanged.) ICD10 Worksheet Patient Problems: Problems Problem Status Onset Intracranial hemorrhage Acute CVA (cerebral vascular accident) Acute
--- NOTE | 2018-02-25 11:07 | HOSPPROG ---
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 * chronic asthma, stable PLANS: * Low stimulus environment * Follow blood pressures closely avoiding high or low blood pressures * Current attempts to get her sodium up to approximately 145 with concentrated saline, 147 this AM, continue 3% NS and NaCl tabs 1000 mg TID * Continue monitoring Na q6 hours * Pain and nausea medicines Seen by me today on multidisc rounds and hospitalist rounds Subjective: Patient reports no complaints this morning Objective: Vital Signs Temp Pulse Resp BP Pulse Ox 36.8 C 64 16 147/71 H 94 02/25/18 08:00 02/25/18 10:00 02/25/18 10:00 02/25/18 10:00 02/25/18 10:00 Laboratory Results 02/22/18 05:30 02/25/18 06:00 02/24/18 02/25/18 02/26/18 05:59 05:59 05:59 Intake Total 1855 1729 220 Output Total 900 1275 450 Balance 955 454 -230 PT 13.7 SEC (12.0-15.0) 02/21/18 14:55 INR 1.03 (0.83-1.16) 02/21/18 14:55 - Physical Exam Constitutional: no apparent distress, uncomfortable Eyes: PERRL Ears, Nose, Mouth, Throat: moist mucous membranes Cardiovascular: regular rate and rhythym Respiratory: clear to auscultation Gastrointestinal: normoactive bowel sounds Genitourinary: no bladder tenderness Skin: warm Musculoskeletal: No full muscle strength Neurologic: AAOx3, weakness Psychiatric: interacting appropriately ICD10 Worksheet Patient Problems: Problems Problem Status Onset Intracranial hemorrhage Acute CVA (cerebral vascular accident) Acute
--- NOTE | 2018-02-25 11:24 | NEUSURGPN ---
Assessment/Plan: Assessment: 42 yo female with history of Damon damon s/p stenting of her right periclinoid carotid artery at [facility] twice. Also has a left carotid stent due to iatrogenic injury to the left carotid and underwent a right STAMCA bypass at [place] recently and suffered a post op right ICH at the operative site. Transferred her from rehab due to decreased mentation and CTH showed evolving Right ICH with significant edema. Plan: - neuro stable - Goal Na is > 145. Continue 3% at 50 cc/hr. Also on salt tabs. This am Na is 145. Continue to follow labs and stay the course for now - Mobilize with PT/OT as able - Follow clinically. -Dispo- hopefully back to rehab in next 1-2 days - Please notify neurosurgery with any changes in neuro status/exam Discussed with Dr. Velasco. Subjective: Patient doing a little better each day. No new issues. Hopeful to go back to rehab soon. Objective: Awake. Alert. PERRL. Left facial droop CN II-XII grossly intact LUE paralysis Following commands and moving RUE and bilateral LE - Physician Discussed Patient with Dr.: Velasco Neurosurgery Physical Exam - Vitals, I&O, Labs I and O 02/24/18 02/25/18 02/26/18 05:59 05:59 05:59 Intake Total 1855 1729 220 Output Total 900 1275 450 Balance 955 454 -230 Weight 97 kg Intake: Oral (ml) 740 592 220 IV Infused (ml) 1115 1137 SODIUM Cl 3% 500 ml @ 50 1115 1137 mls/hr IV CONT CONNIE Rx#: [id number] Output: Urine (ml) 900 1275 450 Bedpan 900 475 450 Bedside Commode 800 Other: Output Comment Bedpan bedpan spilling when getting positioned causing incontinence Number of Voids Bedpan 1 1 1 Incontinence 2 1 Vital Signs Temp Pulse Resp BP Pulse Ox 36.8 C 64 16 147/71 H 94 02/25/18 08:00 02/25/18 10:00 02/25/18 10:00 02/25/18 10:00 02/25/18 10:00 Laboratory Results 02/22/18 05:30 02/25/18 06:00 ICD10 Worksheet Patient Problems: Problems Problem Status Onset Intracranial hemorrhage Acute CVA (cerebral vascular accident) Acute
[2018-02-25] MEDS: HYDROCODONE/APAP 5/325 TAB PO PRN (16:04)
[2018-02-25] MEDS: HYDROCODONE/APAP 10/325 TAB PO PRN (20:24)
[2018-02-25] MEDS: MONTELUKAST SODIUM 10 MG TAB PO SCH (21:32)
[2018-02-25] MEDS: ESCITALOPRAM OXALATE 10 MG TAB PO SCH (21:34)
[2018-02-25] MEDS: ATORVASTATIN CALCIUM 10 MG TAB PO SCH (21:35)
[2018-02-25] MEDS: LORazepam 0.5 MG TAB PO SCH (21:35)
[2018-02-25] MEDS: FOLIC ACID 1 MG TAB PO SCH (21:36)
[2018-02-26] MEDS: SODIUM Cl 3% 500 ML IV SCH ×2 (04:11→18:00)
[2018-02-26] MEDS: FAMOTIDINE 20 MG TAB PO SCH ×2 (09:58→20:02)
[2018-02-26] MEDS: BACITRACIN/POLYMYXIN B SULFATE 28.3 GM TUBE TP SCH ×3 (09:58→22:07)
[2018-02-26] MEDS: DOCUSATE SODIUM 100 MG CAP PO SCH ×2 (09:58→20:03)
[2018-02-26] MEDS: SODIUM CHLORIDE 1,000 MG TAB PO SCH ×3 (09:58→20:05)
[2018-02-26] MEDS: BACLOFEN 10 MG TAB PO SCH ×3 (09:59→20:05)
[2018-02-26] MEDS: GABAPENTIN 300 MG CAP PO SCH ×2 (10:00→20:02)
--- NOTE | 2018-02-26 11:09 | HOSPPROG ---
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 * chronic asthma, stable PLANS: * Low stimulus environment * Follow blood pressures closely avoiding high or low blood pressures * Na 147 this AM, continue 3% NS, decreased rate from 50 to 30 cc/hr this AM, continue NaCl tabs 1000 mg TID * Continue monitoring Na q6 hours * Pain and nausea medicines Dispo: Plan to d/c to IP rehab in next 1-2 days Seen by me today on multidisc rounds and hospitalist rounds Subjective: Patient sitting in chair this morning with no complaints, at bedside Objective: Vital Signs Temp Pulse Resp BP Pulse Ox 37.2 C 89 19 157/82 H 97 02/26/18 08:00 02/26/18 10:00 02/26/18 10:00 02/26/18 10:00 02/26/18 10:00 Laboratory Results 02/22/18 05:30 02/26/18 06:10 02/25/18 02/26/18 02/27/18 05:59 05:59 05:59 Intake Total 1729 2492 Output Total 1275 1650 875 Balance 454 842 -875 PT 13.7 SEC (12.0-15.0) 02/21/18 14:55 INR 1.03 (0.83-1.16) 02/21/18 14:55 - Physical Exam Constitutional: no apparent distress Eyes: PERRL Ears, Nose, Mouth, Throat: moist mucous membranes Cardiovascular: tachycardia Respiratory: clear to auscultation Gastrointestinal: soft, non-tender abdomen Genitourinary: no bladder tenderness Skin: warm Musculoskeletal: generalized weakness Neurologic: AAOx3, weakness Psychiatric: interacting appropriately ICD10 Worksheet Patient Problems: Problems Problem Status Onset Intracranial hemorrhage Acute CVA (cerebral vascular accident) Acute
--- NOTE | 2018-02-26 11:50 | NEUSURGPN ---
Assessment/Plan: Assessment: 42 yo female with history of Damon damon s/p stenting of her right periclinoid carotid artery at [facility] twice. Also has a left carotid stent due to iatrogenic injury to the left carotid and underwent a right STAMCA bypass at [place] recently and suffered a post op right ICH at the operative site. Transferred her from rehab due to decreased mentation and CTH showed evolving Right ICH with significant edema. Plan: - neuro stable - Na-147 this am. ok to let normalize now. 3% decreased to 30/hr this morning, and will plan on turning off tomorrow. Will most likely send out on Na tabs for a week or so upon dc back to reha - Mobilize with PT/OT as able - Follow clinically. -Dispo- hopefully back to rehab in next 1-2 days - Please notify neurosurgery with any changes in neuro status/exam Discussed with Dr. Velasco. Subjective: Patient doing a little better each day.Slept well. No new issues. Hopeful to go back to rehab soon. Objective: Awake. Alert. PERRL. Left facial droop CN II-XII grossly intact LUE paralysis Following commands and moving RUE and bilateral LE - Physician Discussed Patient with Dr.: Velasco Neurosurgery Physical Exam - Vitals, I&O, Labs I and O 02/25/18 02/26/18 02/27/18 05:59 05:59 05:59 Intake Total 1729 2492 Output Total 1275 1650 875 Balance 454 842 -875 Weight 97 kg Intake: Oral (ml) 592 1300 IV Infused (ml) 1137 1192 SODIUM Cl 3% 500 ml @ 50 1137 1192 mls/hr IV CONT CONNIE Rx#: [id number] Output: Urine (ml) 1275 1650 875 Bedpan 475 450 Bedside Commode 800 1200 875 Other: Output Comment Bedpan bedpan spilling when getting positioned causing incontinence Number of Voids Bedpan 1 1 Bedside Commode 1 1 Incontinence 1 Number of Stools Bedside Commode 1 Vital Signs Temp Pulse Resp BP Pulse Ox 37.2 C 89 19 157/82 H 97 02/26/18 08:00 02/26/18 10:00 02/26/18 10:00 02/26/18 10:00 02/26/18 10:00 Laboratory Results 02/22/18 05:30 02/26/18 06:10 ICD10 Worksheet Patient Problems: Problems Problem Status Onset Intracranial hemorrhage Acute CVA (cerebral vascular accident) Acute
--- NOTE | 2018-02-26 15:29 | PDINTPN ---
Appraisal Technician Progress Note Assessment/Plan: Assessment: Abnormal mental status: Improved. Recent intracranial hemorrhage/stroke associated with vasogenic edema. Sodium: Sodium stable at 147 this a.m.. On fluid restriction of 1500. Remains on hypertonic saline reduced to 30 and salt tablets. Prophylaxis: SCDs and famotidine. Asthma: Stable, no issues. On montelukast. Not requiring inhaled therapies. Plan: Continue present care. Continue to monitor sodiums. Continue hypertonic sodium at 50 per NS, possibly stop tomorrow? Continue sodium chloride tablets 1 g three times daily. May need to increase this to 2 g 3 times a day to maintain higher sodiums when she goes to inpatient rehab. DVT prophylaxis with enoxaparin once okayed by neuro surgery 15 min of critical care time spent directly with the patient. Discussed with nursing, hospitalist, and the ICU multi disciplinary team. Subjective: No new complaints. Overall doing better. Objective: Vital Signs Temp Pulse Resp BP Pulse Ox 36.7 C 77 16 122/69 H 97 02/26/18 12:00 02/26/18 14:00 02/26/18 14:00 02/26/18 14:00 02/26/18 14:00 Laboratory Results 02/22/18 05:30 02/26/18 12:30 02/25/18 02/26/18 02/27/18 05:59 05:59 05:59 Intake Total 1729 2492 Output Total 1275 1650 1125 Balance 454 842 -1125 PT 13.7 SEC (12.0-15.0) 02/21/18 14:55 INR 1.03 (0.83-1.16) 02/21/18 14:55 Physical Exam - Physical Exam General Appearance: other (Unchanged) ICD10 Worksheet Patient Problems: Problems Problem Status Onset Intracranial hemorrhage Acute CVA (cerebral vascular accident) Acute
[2018-02-26] MEDS: MBX SOLN 30 ML BOTTLE PO PRN (16:48)
[2018-02-26] MEDS ORDERED: LABETALOL HCL 5 MG/ML 20 ML MDV IV PRN (19:30)
[2018-02-26] MEDS ORDERED: LABETALOL HCL 5 MG/ML 20 ML MDV IV ONE (19:30)
[2018-02-26] MEDS: HYDROCODONE/APAP 5/325 TAB PO PRN (19:58)
[2018-02-26] MEDS: FOLIC ACID 1 MG TAB PO SCH (19:59)
[2018-02-26] MEDS: ATORVASTATIN CALCIUM 10 MG TAB PO SCH (20:00)
[2018-02-26] MEDS: MONTELUKAST SODIUM 10 MG TAB PO SCH (20:00)
[2018-02-26] MEDS: ESCITALOPRAM OXALATE 10 MG TAB PO SCH (20:01)
[2018-02-26] MEDS: LORazepam 0.5 MG TAB PO SCH (20:08)
[2018-02-27] MEDS: SODIUM CHLORIDE 1,000 MG TAB PO SCH ×3 (10:01→22:31)
[2018-02-27] MEDS: FAMOTIDINE 20 MG TAB PO SCH ×2 (10:01→20:32)
[2018-02-27] MEDS: BACITRACIN/POLYMYXIN B SULFATE 28.3 GM TUBE TP SCH ×3 (10:02→22:30)
[2018-02-27] MEDS: DOCUSATE SODIUM 100 MG CAP PO SCH ×2 (10:02→20:38)
[2018-02-27] MEDS: BACLOFEN 10 MG TAB PO SCH ×3 (10:02→22:30)
[2018-02-27] MEDS: GABAPENTIN 300 MG CAP PO SCH ×2 (10:02→20:33)
--- NOTE | 2018-02-27 12:20 | NEUSURGPN ---
Assessment/Plan: Assessment: 42 yo female with history of Damon damon s/p stenting of her right periclinoid carotid artery at [facility] twice. Also has a left carotid stent due to iatrogenic injury to the left carotid and underwent a right STAMCA bypass at [place] recently and suffered a post op right ICH at the operative site. Transferred her from rehab due to decreased mentation and CTH showed evolving Right ICH with significant edema. Plan: - neuro stable - Na-147 this am. ok to let normalize now - Follow clinically -Dispo- hopefully back to rehab in next 1-2 days, case management consulted - Please notify neurosurgery with any changes in neuro status/exam Discussed patient with Dr Velasco Subjective: Wants to get to rehab, no other new complaints Objective: Awake. Alert. PERRL. Left facial droop CN II-XII grossly intact LUE 1-2/5 throughout Following commands and moving RUE and bilateral LE Neuro Check Frequency: per routine Urinary Catheter in Place: No - Physician Discussed Patient with Dr.: Velasco Neurosurgery Physical Exam - Vitals, I&O, Labs I and O 02/26/18 02/27/18 02/28/18 05:59 05:59 05:59 Intake Total 2492 1425 Output Total 1650 1775 100 Balance 842 -350 -100 Intake: Oral (ml) 1300 707 IV Infused (ml) 1192 718 SODIUM Cl 3% 500 ml @ 50 1192 718 mls/hr IV CONT CONNIE Rx#: [id number] Output: Urine (ml) 1650 1775 100 Bedpan 450 Bedside Commode 1200 1775 100 Other: Output Comment Bedpan bedpan spilling when getting positioned causing incontinence Number of Voids Bedpan 1 Bedside Commode 1 1 1 Incontinence 1 1 Number of Stools Bedside Commode 1 1 1 Vital Signs Temp Pulse Resp BP Pulse Ox 36.9 C 81 14 145/82 H 97 02/26/18 16:00 02/27/18 10:00 02/27/18 10:00 02/27/18 10:00 02/27/18 10:00 Laboratory Results 02/22/18 05:30 02/27/18 05:30 ICD10 Worksheet Patient Problems: Problems Problem Status Onset Intracranial hemorrhage Acute CVA (cerebral vascular accident) Acute
--- NOTE | 2018-02-27 12:51 | HOSPPROG ---
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 * chronic asthma, stable PLANS: * Low stimulus environment * Follow blood pressures closely avoiding high or low blood pressures * Na 147 this AM, discontinued 3% NS this AM, continue NaCl tabs 1000 mg TID * Continue monitoring Na q6 hours * Pain and nausea medicines Dispo: Plan to d/c to IP rehab in next 1-2 days Seen by me today on multidisc rounds and hospitalist rounds Subjective: Patient reports no complaints this AM Objective: Vital Signs Temp Pulse Resp BP Pulse Ox 36.9 C 81 14 145/82 H 97 02/26/18 16:00 02/27/18 10:00 02/27/18 10:00 02/27/18 10:00 02/27/18 10:00 Laboratory Results 02/22/18 05:30 02/27/18 05:30 02/26/18 02/27/18 02/28/18 05:59 05:59 05:59 Intake Total 2492 1425 Output Total 1650 1775 100 Balance 842 -350 -100 PT 13.7 SEC (12.0-15.0) 02/21/18 14:55 INR 1.03 (0.83-1.16) 02/21/18 14:55 - Physical Exam Constitutional: no apparent distress Eyes: PERRL Ears, Nose, Mouth, Throat: moist mucous membranes Cardiovascular: regular rate and rhythym Respiratory: clear to auscultation Gastrointestinal: soft, non-tender abdomen Genitourinary: no bladder tenderness Skin: warm Musculoskeletal: generalized weakness Neurologic: AAOx3, weakness (L sided) Psychiatric: interacting appropriately ICD10 Worksheet Patient Problems: Problems Problem Status Onset Intracranial hemorrhage Acute CVA (cerebral vascular accident) Acute
--- NOTE | 2018-02-27 15:44 | ASMTCMCOM ---
CM Note CM Note Notes: Contacted [facility]hab to let them know patient was ready for Rehab. They have contacted [employer] and have authorization but would like to wait until Tues to admit. Rehab only wants sodium checks 1x/day. Date Signed: 02/27/2018 03:43 PM Electronically Signed By:Mayela Basurto LCSW
[2018-02-27] MEDS: HYDROCODONE/APAP 10/325 TAB PO PRN (19:55)
[2018-02-27] MEDS: FOLIC ACID 1 MG TAB PO SCH (20:30)
[2018-02-27] MEDS: ATORVASTATIN CALCIUM 10 MG TAB PO SCH (20:31)
[2018-02-27] MEDS: ESCITALOPRAM OXALATE 10 MG TAB PO SCH (20:32)
[2018-02-27] MEDS: MONTELUKAST SODIUM 10 MG TAB PO SCH (20:32)
[2018-02-27] MEDS: LORazepam 0.5 MG TAB PO SCH (20:33)
[2018-02-27] MEDS: MBX SOLN 30 ML BOTTLE PO PRN (20:41)
--- NOTE | 2018-02-28 07:56 | SOAPPROG ---
CHON Progress Note Assessment/Plan: Assessment: 42 yo female with history of Damon damon s/p stenting of her right periclinoid carotid artery at [facility] twice. Also has a left carotid stent due to iatrogenic injury to the left carotid and underwent a right STAMCA bypass at [place] recently and suffered a post op right ICH at the operative site. Transferred her from rehab due to decreased mentation and CTH showed evolving Right ICH with significant edema. Much improved since admission Plan: - ok to go to daily Na rather than QID - neuro stable - Na-141 this am. ok to let normalize now - Follow clinically -Dispo- hopefully back to rehab in next 1-2 days, case management consulted - Please notify neurosurgery with any changes in neuro status/exam Discussed patient with Dr Nair Subjective: Awake, comfortable. Denies NUNEZ this AM. No other new complaints. SHe feels like her left leg is a bit better. Objective: Awake. Alert. PERRL. Left facial droop CN II-XII grossly intact LUE 1-2/5 throughout Following commands and moving RUE and bilateral LE Neuro Check Frequency: per routine Urinary Catheter in Place: No 02/28/18 07:54 Objective: Vital Signs Temp Pulse Resp BP Pulse Ox 36.9 C 77 16 144/85 H 94 02/28/18 04:20 02/28/18 04:20 02/28/18 04:20 02/28/18 04:20 02/28/18 04:20 Laboratory Results 02/22/18 05:30 02/28/18 04:11 02/27/18 02/28/18 03/01/18 05:59 05:59 05:59 Intake Total 1425 830 Output Total 1775 500 Balance -350 330 PT 13.7 SEC (12.0-15.0) 02/21/18 14:55 INR 1.03 (0.83-1.16) 02/21/18 14:55 ICD10 Worksheet Patient Problems: Problems Problem Status Onset Intracranial hemorrhage Acute CVA (cerebral vascular accident) Acute
[2018-02-28] MEDS: DOCUSATE SODIUM 100 MG CAP PO SCH ×2 (09:34→22:18)
[2018-02-28] MEDS: FAMOTIDINE 20 MG TAB PO SCH ×2 (09:34→22:18)
[2018-02-28] MEDS: GABAPENTIN 300 MG CAP PO SCH ×2 (09:35→22:18)
[2018-02-28] MEDS: BACLOFEN 10 MG TAB PO SCH ×3 (09:35→22:18)
[2018-02-28] MEDS: SODIUM CHLORIDE 1,000 MG TAB PO SCH ×3 (09:36→22:17)
--- NOTE | 2018-02-28 09:41 | HOSPPROG ---
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 * chronic asthma, stable PLANS: * Low stimulus environment * Follow blood pressures closely avoiding high or low blood pressures * Na 141 this AM, discontinued 3% NS on 02/27, continue NaCl tabs 1000 mg TID * Continue monitoring Na qd * Pain and nausea medicines Dispo: Plan to d/c to [facility] IP rehab tomorrow Subjective: Patient reports no complaints this AM Objective: Vital Signs Temp Pulse Resp BP Pulse Ox 36.7 C 79 14 146/97 H 93 02/28/18 07:56 02/28/18 07:56 02/28/18 07:56 02/28/18 07:56 02/28/18 07:56 Laboratory Results 02/22/18 05:30 02/28/18 04:11 02/27/18 02/28/18 03/01/18 05:59 05:59 05:59 Intake Total 1425 830 Output Total 1775 500 Balance -350 330 PT 13.7 SEC (12.0-15.0) 02/21/18 14:55 INR 1.03 (0.83-1.16) 02/21/18 14:55 - Physical Exam Constitutional: no apparent distress Eyes: PERRL Ears, Nose, Mouth, Throat: moist mucous membranes Cardiovascular: No edema Respiratory: no respiratory distress Skin: normal color Musculoskeletal: generalized weakness Neurologic: AAOx3, weakness Psychiatric: interacting appropriately ICD10 Worksheet Patient Problems: Problems Problem Status Onset Intracranial hemorrhage Acute CVA (cerebral vascular accident) Acute
[2018-02-28] MEDS: BACITRACIN/POLYMYXIN B SULFATE 28.3 GM TUBE TP SCH ×3 (13:04→23:42)
[2018-02-28] MEDS: ESCITALOPRAM OXALATE 10 MG TAB PO SCH (22:18)
[2018-02-28] MEDS: ATORVASTATIN CALCIUM 10 MG TAB PO SCH (22:19)
[2018-02-28] MEDS: MONTELUKAST SODIUM 10 MG TAB PO SCH (22:19)
[2018-02-28] MEDS: FOLIC ACID 1 MG TAB PO SCH (22:19)
[2018-02-28] MEDS: LORazepam 0.5 MG TAB PO SCH (22:19)
[2018-02-28] MEDS: HYDROCODONE/APAP 5/325 TAB PO PRN (22:27)
--- NOTE | 2018-03-01 08:15 | NEUSURGPN ---
Assessment/Plan: Assessment: 42 yo female with history of Damon damon s/p stenting of her right periclinoid carotid artery at [facility] twice. Also has a left carotid stent due to iatrogenic injury to the left carotid and underwent a right STAMCA bypass at [place] recently and suffered a post op right ICH at the operative site. Transferred her from rehab due to decreased mentation and CTH showed evolving Right ICH with significant edema. Much improved since admission Plan: - neuro stable - Na-139 this am. ok to let normalize now -Dispo- hopefully back to rehab in next 1-2 days, case management consulted - Please notify neurosurgery with any changes in neuro status/exam Discussed patient with Dr Velasco Subjective: No new events Objective: Awake. Alert. PERRL. Left facial droop CN II-XII grossly intact LUE 1-2/5 throughout Following commands and moving RUE and bilateral LE Neuro Check Frequency: per routine Urinary Catheter in Place: No - Physician Discussed Patient with Dr.: Velasco Neurosurgery Physical Exam - Vitals, I&O, Labs I and O 02/28/18 03/01/18 03/02/18 05:59 05:59 05:59 Intake Total 830 850 Output Total 500 Balance 330 850 Intake: Oral (ml) 700 850 IV Infused (ml) 130 SODIUM Cl 3% 500 ml @ 50 130 mls/hr IV CONT CONNIE Rx#: [id number] Output: Urine (ml) 500 Bedside Commode 500 Other: Intake Quantity Yes Sufficient Number of Voids Bedside Commode 1 1 Number of Stools Bedside Commode 2 1 Vital Signs Temp Pulse Resp BP Pulse Ox 36.9 C 89 14 137/100 H 97 03/01/18 07:44 03/01/18 07:44 03/01/18 07:44 03/01/18 07:44 03/01/18 07:44 Laboratory Results 02/22/18 05:30 03/01/18 04:35 ICD10 Worksheet Patient Problems: Problems Problem Status Onset Intracranial hemorrhage Acute CVA (cerebral vascular accident) Acute
[2018-03-01 08:31] VITALS: BP 135/90
[2018-03-01] MEDS: SODIUM CHLORIDE 1,000 MG TAB PO SCH (09:13)
[2018-03-01] MEDS: BACLOFEN 10 MG TAB PO SCH (09:14)
[2018-03-01] MEDS: GABAPENTIN 300 MG CAP PO SCH (09:14)
[2018-03-01] MEDS: DOCUSATE SODIUM 100 MG CAP PO SCH (09:14)
[2018-03-01] MEDS: FAMOTIDINE 20 MG TAB PO SCH (09:15)
[2018-03-01] MEDS: BACITRACIN/POLYMYXIN B SULFATE 28.3 GM TUBE TP SCH (09:35)
--- NOTE | 2018-03-01 10:17 | HOSPPROG ---
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 facial droop and LUE/LLE weakness improvng. NNUEZ improving Objective: Vital Signs Temp Pulse Resp BP Pulse Ox 36.9 C 89 14 135/90 H 97 03/01/18 07:44 03/01/18 07:44 03/01/18 07:44 03/01/18 08:31 03/01/18 07:44 Laboratory Results 02/22/18 05:30 03/01/18 04:35 02/28/18 03/01/18 03/02/18 05:59 05:59 05:59 Intake Total 830 850 Output Total 500 300 Balance 330 850 -300 PT 13.7 SEC (12.0-15.0) 02/21/18 14:55 INR 1.03 (0.83-1.16) 02/21/18 14:55 - Physical Exam Constitutional: other (alert, conversant) Eyes: PERRL, anicteric sclera Ears, Nose, Mouth, Throat: moist mucous membranes, hearing normal Cardiovascular: regular rate and rhythym, no murmur, rub, or gallop Respiratory: no respiratory distress, no rales or rhonchi Gastrointestinal: normoactive bowel sounds, soft, non-tender abdomen Genitourinary: no bladder fullness, no bladder tenderness Skin: warm, normal color Musculoskeletal: No full muscle strength Neurologic: other (L facial droop, LUE weakness) Psychiatric: interacting appropriately, not anxious ICD10 Worksheet Patient Problems: Problems Problem Status Onset Intracranial hemorrhage Acute CVA (cerebral vascular accident) Acute
--- NOTE | 2018-03-01 10:53 | GDS ---
DISCHARGE DIAGNOSES: 1. 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 2. Status post estra to intracranial bypass performed at [facility] on February 08. 3. Postoperative hemorrhage. 5. Headache. 6. Asthma. 7. Worsening generalized mass effect around the large right posterior frontoparietal intraparenchymal hemorrhage, worsening [id number] shift. HOSPITAL COURSE: The patient developed headache and a flat affect and worsening left-sided weakness a number of days into her rehab stay. The CT showed the aforementioned findings. She was transferred urgently to the emergency department. She was seen promptly by Neurosurgery evaluation who recommended management with hypertonic saline. Dr. Nair did speak with her surgeon in [place]. The patient has had progressive improvement of her neurologic status and improvement of her headache. Her sodium was driven up into the high 140s. It has now been allowed to normalize. It is currently 139. She is discharged back to rehab for ongoing rehabilitation. Her neurologic symptoms of left-sided weakness and facial droop have continued to improve during this hospitalization. Medications are continued. I have just spoken with Dr. Velasquez regarding the sodium chloride taper. /[id number]/MODL MTDD
--- NOTE | 2018-03-01 11:56 | PDIAF ---
- Diagnosis Diagnosis: intracranial bleed Code Status: Full Code - Medication Management Discharge Medications: Medications to Continue on Transfer Atorvastatin Calcium [Lipitor 10 mg (*)] 10 mg PO HS 02/16/18 [Last Taken ] Bacitracin/Polymyxin B Sulfate [Polysporin Ointment] 1 each TP TID 02/16/18 [ Last Taken 02/20/18] Baclofen 5 mg PO TID 02/16/18 [Last Taken 02/21/18] Docusate Sodium [Colace 100 MG (*)] 100 mg PO BID 02/16/18 [Last Taken 02/21/18] Escitalopram Oxalate [Lexapro] 20 mg PO HS 02/16/18 [Last Taken 02/20/18] Famotidine [Pepcid 20 MG (*)] 20 mg PO BID 02/16/18 [Last Taken 02/21/18] Folic Acid 0.4 mg PO HS 02/16/18 [Last Taken 02/20/18] HYDROcodone/APAP 10/325 [[place] 10/325 (*)] 1 tab PO Q4 PRN 02/16/18 [Last Taken 02/18/18] Hydrocodone/Acetaminophen [[place] 5/325 (*)] 1 tab PO Q4H PRN 02/16/18 [Last Taken 02/21/18] LORazepam [Ativan (*)] 0.5 mg PO HS 02/16/18 [Last Taken 02/20/18] Montelukast Sodium [Singulair 10 mg (*)] 10 mg PO HS 02/16/18 [Last Taken ] NIFEdipine [Procardia 10 mg (*)] 10 mg PO Q8H PRN 02/16/18 [Last Taken Unknown] Polyethylene Glycol 3350 [Miralax 17 gm (*)] 17 gm PO DAILY PRN 02/16/18 [Last Taken 02/20/18] Gabapentin [Neurontin 300 MG (*)] 300 mg PO BID 02/21/18 [Last Taken 02/21/18] Mbx Soln;Maalox/Diphen/Lido [Maalox/Diphenhydramine/Lido] 5 ml PO PRN PRN bottle 03/01/18 [Last Taken Unknown] Sodium Chloride [Salt Tablet] 1,000 mg PO TID tab 03/01/18 [Last Taken Unknown] oxyCODONE IR [Oxycodone Ir (*)] 5 - 10 mg PO Q3HRS PRN tab 03/01/18 [Last Taken Unknown] Discharge Medications: Refer to the Discharge Home Medication list for PRN reason. - Orders Services needed: Registered Nurse, Certified Grinder Setup Operator, Physical Therapy, Occupational Therapy, Speech Language Pathologist Diet Texture: Dysphagia 3 - Advanced - Moist, Bite-Size, [place] Thick Liquids - Follow Up Care Current Providers and Referrals: Cindy Antonio MD [Primary Care Provider] - As per Instructions
--- NOTE | 2018-03-01 12:27 | ASMTCMCOM ---
CM Note CM Note Notes: Pt medically stable for d/c to [facility] inpatient rehab. Orders to be obtained via [employer]. Pt and agree to pay for [employer] transport at 1300. BUNNY Feldman to call report. Date Signed: 03/01/2018 12:26 PM Electronically Signed By:GALLO Turk
--- NOTE | 2018-03-01 15:02 | ASDISCHSUM ---
Discharge Information Plan Status:Inpatient Rehab Medically Cleared to Leave: Discharge Date:03/01/2018 12:56 PM D/C Disposition:[facility] D/C Disposition:[facility] Projected Discharge Date:03/01/2018 11:00 AM Transportation at D/C: Discharge Delay Reason: Follow-Up Date:03/01/2018 11:00 AM Discharge Slot: Final Diagnosis:ICH Placement Information Referral Type:Rehabilitation Hospital Referral ID:[id number] Provider Name:[facility] Address 1:[address] Phone Number: Address 2: Fax Number: City:[place] Selection Factors: State:[place] Patient Contact Information Contact Name:JORDEN Relationship: Address:[address] [place] [address] Work Phone: City:[place] Alternate Phone: [facility] Code:[place] [address] Email: Financial Information Financial Class:[facility] Primary Plan Desc:[facility] LOCAL Primary Plan Number:[id number] Secondary Plan Desc: Secondary Plan Number: Assessment Information LACE LACE Length of stay for Answers: 7-13 days current admission Acuity / Level of Answers: Yes Care: Did the patient have an inpatient admission? Comorbidities - select Answers: Cerebrovascular disease all that apply (CVA, TIA, aneurysms, vasc ular dementia) Other Notes: Asthma; HLD # of Emergency department Answers: 1-2 visits in the last 6 months Score: 11 Date Signed: 03/01/2018 03:01 PM Electronically Signed By:GALLO Turk [facility] Initial CM Assessment Living Arrangements What is your living Answers: With Spouse arrangement? Who do you live with? Type Of Residence What kind of residence do Answers: House you live in? 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 Patient underwent a right-sided craniotomy on 02-08-18 for a cranial bypass, went to rehab, but developed severe headache with an increasingly flat affect. She has been admitted for cerebral edema as a complication of recent intracranial hemorrhage. OT/PT/CHIEF JUVENILE PROBATION OFFICER have been ordered. Likely patient will return to [facility] inpatient rehab when she is ready for d/c. CM will follow. Date Signed: 02/23/2018 04:19 PM Electronically Signed By:Nevin Valdez LCSW [facility] CM Progress Note CM Note CM Note Notes: Spoke with Josy from inpatient rehab and they are following patient. However, they need a new order so they can re-eval before patient returns to their program. Requested order. CM will follow. Date Signed: 02/24/2018 03:07 PM Electronically Signed By:Nevin Valdez LCSW [facility] CM Progress Note CM Note CM Note Notes: Contacted [facility]-pt Rehab to let them know patient was ready for Rehab. They have contacted [facility] and have authorization but would like to wait until Tu to admit. Rehab only wants sodium checks 1x/day. Date Signed: 02/27/2018 03:43 PM Electronically Signed By:Mayela Basurto LCSW [facility] CM Progress Note CM Note CM Note Notes: Pt medically stable for d/c to [facility] inpatient rehab. Orders to be obtained via [employer]. Pt and agree to pay for [employer] at 1300. BUNNY Feldman to call report. Date Signed: 03/01/2018 12:26 PM Electronically Signed By:GALLO Turk Intervention Information
== END 2018-03-01 12:56 | DRG 81 ==
LOC: F2N 16:28 → F3N 02-27 18:49
PROVIDERS: ADMIT Internal Medicine; ATTEND Internal Medicine
PROC: 02HV33Z Insertion of Infusion Device into Superior Vena Cava, Percutaneous Approach (ICD-10-PCS; principal; 2018-02-21)
DX: G93.6 Cerebral edema (principal); T82.8 Other specified complications of cardiac and vascular prosthetic devices, implants and grafts; I69.154 Hemiplegia and hemiparesis following nontraumatic intracerebral hemorrhage affecting left non-dominant side; E87.1 Hypo-osmolality and hyponatremia; I67.5 Moyamoya disease; J45.909 Unspecified asthma, uncomplicated; E78.5 Hyperlipidemia, unspecified
CPT/HCPCS: 92523-GN; 92526-GN; 92610-GN; 97110-GP; 97112-GO; 97112-GP; 97116-GP; 97162-GP; 97166-GO; 97530-GO; 97530-GP; 97535-GO; C1751; C1769; J1170

== ENCOUNTER 2018-03-01 10:42 | Inpatient (IN) | payer OTHER ==
[2018-03-01] MEDS ORDERED: MBX SOLN 30 ML BOTTLE PO PRN (14:06)
[2018-03-01] MEDS ORDERED: NIFEdipine 10 MG CAP PO PRN (14:06)
[2018-03-01] MEDS ORDERED: oxyCODONE IR 5 MG TAB PO PRN (14:06)
[2018-03-01] MEDS ORDERED: HYDROCODONE/APAP 10/325 TAB PO PRN (14:06)
--- NOTE | 2018-03-01 15:59 | GHP ---
POST ADMISSION PHYSICIAN EVALUATION AND REHABILITATION TREATMENT PLAN. DATE OF ADMISSION: 03/01/2018 DATE OF EVALUATION: 03/01/2018. TIME OF EVALUATION: 1555. REFERRING FACILITY: [facility] Inpatient rehabilitation. REFERRING PHYSICIAN: Dr. Blanchard IMPAIRMENT GROUP: 1.1. DATE OF ONSET: 02/08/2018. CONSULTING PHYSICIANS: Neurosurgery, Dr. Velasco and Dr. Nair. Pulmonary and Critical Care, Dr. Blanchard. REHABILITATION DIAGNOSIS: Cerebrovascular accident. ETIOLOGIC DIAGNOSIS: Left body involvement (right brain). DATE OF SURGERY: 02/08/2018. 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 The disease was progressive. She went to [facility] and had extracranial to intracranial bypass surgery involving the right temporal artery on 02/08/2018. She had a geetha-surgical hemorrhagic CVA on the right side resulting in left hemiparesis and dysphagia. There was brain edema, and she was managed with hypernatremia with IV high-concentration saline and then eventually with oral sodium chloride. She was medically stabilized and came to inpatient rehabilitation at [facility] on 02/16/2018. She initially did well, but then had changes to mental status and headache. Head CT showed worsening mass effect and swelling around the large right posterior frontoparietal intraparenchymal hemorrhage with [id number] shift and compression of the right lateral ventricle. She was rehospitalized and was maintained again on IV high-concentration saline. Eventually she was able to be transitioned to sodium chloride tablets. Sodium stabilized at 139, on 2017, and 141, on 02/28/2018. Neurosurgery no longer felt that it was necessary to maintain hypernatremia, and she was otherwise medically stable and ready to return to inpatient rehabilitation. She currently reports hypersensitivity to her teeth and gums on the left side. She also has had some tinea in her left axilla, which has been treated with an antifungal powder. She is otherwise without acute complaints. LABORATORY STUDIES: Head CT is as described above, done on the day of discharge from inpatient rehabilitation, 02/21/2018. Sodium was 139, on 2017. On 02/28/2018, sodium was 141, and renal function and electrolytes were within normal limits. Coagulation studies on 02/21/2018, revealed a normal PT and INR. On February 16, while still on inpatient rehabilitation, she had an elevated D-dimer at 2.56. Most recent CBC showed a mildly elevated white blood cell count at 9.67. She had anemia with a hemoglobin of 12.3, and hematocrit of 37.1, platelet count was normal. There was no left shift. Her elevated white count was accounted for by elevated absolute neutrophils at 7.29. PRECAUTIONS: She is a fall risk, and she has aspiration precautions. ACTIVE COMORBIDITIES: She has the tier 2 comorbidity of dysphagia and a tier 3 comorbidity of hemiparesis. Otherwise, she has no tier 1, tier 2 or tier 3 comorbidities. PAST MEDICAL HISTORY: 1. Moyamoya disease. 2. Prior CVA. 3. Dyslipidemia. 4. Asthma. PAST SURGICAL HISTORY: She had stenting of bilateral carotid arteries and subsequent cranial bypass surgery done recently at [facility]. PRE-HOSPITAL MEDICATIONS: I do not have a very complete list. ADMISSION MEDICATIONS: 1. Atorvastatin 10 mg p.o. at bedtime. 2. Bacitracin polymyxin topical three times daily, I believe to her cranial incision. 3. Baclofen 5 mg p.o. three times daily. 4. Docusate 100 mg p.o. twice daily. 5. Escitalopram 20 mg p.o. at bedtime. 6. Famotidine 20 mg p.o. twice daily. 7. Folic acid 0.4 mg p.o. at bedtime. 8. Gabapentin 300 mg p.o. twice daily. 9. Hydrocodone/acetaminophen 5/325, 1 p.o. every 4 hours p.r.n. 10. Hydrocodone/acetaminophen 10/325,1 tablet p.o. every 4 hours p.r.n. 11. Lorazepam 0.5 mg p.o. at bedtime. 12. Maalox/diphenhydramine/lidocaine mouthwash 5 mL p.r.n. 13. Montelukast 10 mg p.o. at bedtime. 14. Nifedipine 10 mg p.o. every 8 hours p.r.n. systolic blood pressure greater than 160. 15. Oxycodone IR 5 mg to 10 mg p.o. every 3 hours p.r.n. 16. Polyethylene glycol 17 g p.o. daily p.r.n. 17. Sodium chloride tablets 1000 mg p.o. three times daily. ALLERGIES: There is an allergy listed to penicillins. SOCIAL HISTORY: She is . She lives with her . She has two school-age children at home. 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 She is a nonsmoker. FAMILY HISTORY: Her father had diabetes, heart disease and hypertension. There was cancer in a paternal grandfather and diabetes in a paternal grandfather, as well as hypertension and heart disease. REVIEW OF SYSTEMS: She has hypersensitivity to the left side of her mouth and teeth and improving sensation on her left cheek. She continues to have weakness of the left upper extremity, especially at the wrist and fingers. She otherwise is not in pain. She denies cough or dyspnea. She denies fevers or chills. She denies nausea, vomiting, constipation or diarrhea. She denies dysuria or urinary frequency. Otherwise, a 10-point review of systems is negative. PHYSICAL EXAM: VITAL SIGNS: Blood pressure is 115/73, heart rate is 108, respiratory rate is 16, oxygen saturation is 94% on room air. Temperature is 36.6 degrees centigrade. Her weight in the hospital was 97 kg for a body mass index of 33.5. GENERAL: This is a well-nourished, well-developed, obese woman , sitting up in a wheelchair, wearing a hospital gown, cooperative and in no acute distress. HEENT: Extraocular movements are intact. Pupils are equal, round, and reactive to light. Mucous membranes are moist. Dentition is in good condition. She has an uncrowded airway, Mallampati class 2. NECK: Supple. HEART: There is a regular rate and rhythm, with no murmurs, rubs, or gallops. LUNGS: Clear to auscultation bilaterally. ABDOMEN: Soft, nontender , nondistended with normoactive bowel sounds and no hepatosplenomegaly. EXTREMITIES: There is no cyanosis, clubbing or edema. NEUROLOGIC: She is alert and oriented x3. She has a left facial droop and reduced sensation to touch on the left cheek. Otherwise, cranial nerves 2-12 are grossly intact. 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 She is able to move with close to full range of motion at the shoulder. She has elbow extension and flexion, though it is 3-4/5. Her left lower extremity has 5/5 hip flexion and quadriceps and 4/5 hamstrings. Strength on the right is 5/5 overall. There is no extinction to double-simultaneous stimulation. CURRENT LEVEL OF FUNCTION PER THE PRE-ADMISSION SCREEN: Regarding diet, feeding , and swallowing, she was on a dysphagia 3 diet with nectar-thick liquids. Grooming required setup to minimal assist and voice cues. Upper body dressing required moderate assist and voice cues. Lower body dressing required maximal assist and voice group cues. Toileting required contact guard assist for clothing management and minimal assist with voice cues for sequencing during transfer. She was noted to have urinary urgency. She was continent of bowel. Bed mobility required minimal assist with voice cues. Transfers required minimal to moderate assist with voice cues. She used a front-wheeled walker and a wheelchair. Seated balance was done with standby assist. Standing balance required minimal to moderate assist. Endurance was fair to good. She was able to ambulate 30 feet with a front-wheeled walker and minimal to moderate assist. She could propel a wheelchair with minimal assist for 80 feet. Regarding communication, she was noted to have mild voice dysfunction and regarding cognition, she was noted to have a mild to moderate deficit. IMPRESSION: This is a 42-year-old woman with history of moyamoya disease, which was progressive and required stenting of the carotids x3. Ultimately, she underwent an extracranial to intracranial bypass from the right temporal artery. She unfortunately suffered a hemorrhagic CVA perioperative. She had edema and a leftward shift from the edema. She was managed with hypertonic saline until she had functional improvement and was able to be maintained on sodium chloride tablets, and so she came to inpatient rehabilitation on 2017. She initially did well, but on 02/21/2018, she developed headache and mental status changes. Head CT showed worsening edema around the hemorrhage and a cmvzt-[id number] shift. She was admitted to [facility]. She was placed back on hypertonic saline until she had improvement in her condition. Neurosurgery judged that she no longer needs to be maintained with hypernatremia, and she has a stable sodium on 1000 mg of oral sodium chloride orally 3 times a day. She is other otherwise medically stable and appropriate for inpatient rehabilitation. Her goal is to complete a rehabilitation stay and return home with her family and supportive services. For a safe discharge, she will need to be able to tolerate a regular diet with thin liquids. She will need to achieve modified independence for grooming, bed mobility and transfers. She may continue to require supervision for ambulation with the least restrictive device on level and unlevel surfaces. She will need to be able to propel a wheelchair independently. She may continue to require assistance for dressing and bathing. She will need modified independence for toilet transfers, though she may continue to require assistance for clothing management. There will need to be a ramp to access the home if she leaves at a wheelchair level, and there may be a need for stair glide to access the 2nd level home to utilize a full bathroom. She will have therapy with Physical Therapy, Occupational Therapy, and Speech and Language Pathology on 5-7 days of the week for 60 minutes per day for each discipline. Her expected duration of stay is 21-28 days. It is expected that upon discharge she will continue to benefit from Home Health Services including nursing, speech and language pathology, an aide, occupational therapy and physical therapy. She also will benefit from a stroke support group. PLAN: 1. Left hemiparesis greater in the upper extremities and lower extremities, status post right hemorrhagic CVA on 02/08/2018 as a complication of an extracranial to intracranial arterial bypass for moyamoya disease. PT and OT to optimize mobility and activities of daily living. 2. Mild dysarthria, dysphagia, and cognitive deficits due to stroke. Assessment and treatment per Speech and Language Pathology. 3. Acute cerebral edema with mental status changes and headache. These have resolved. Continue sodium chloride 1000 mg three times daily for now. Consider taper with close observation of her sodium level. 4. Chronic asthma, stable. 5. Hyperesthesia of the left side of her mouth. She is already taking gabapentin for post stroke allodynia of the left leg. Continue gabapentin. Consider titration if she has continued symptoms. 6. Continue baclofen for presumed increased tone due to her stroke. 7. Depression. Continue escitalopram. This may also promote neural recovery, though the SSRI study that was done demonstrating this effect was done on fluoxetine. 8. Dyslipidemia. Continue atorvastatin for secondary stroke prophylaxis. 9. She is prescribed opiates for pain. Will monitor her use and will observe further regarding what is a source of the pain and whether there are other ways to address it. 10. Prophylaxis. She is at elevated risk for DVT, but the discharging team at [facility] was concerned about risk for further hemorrhage, and so she is on no DVT prophylaxis. Ultrasound studies of the legs were done following her initial admission to inpatient rehabilitation on 02/17/2018, which demonstrated no DVTs and, though she was mildly tachycardic upon initial assessment today at inpatient rehabilitation, she otherwise has no signs or symptoms of DVT, including no leg swelling, calf tenderness, or hypoxia. Will continue to monitor and will promote mobility as much as possible. /[id number]/MODL MTDD
[2018-03-01] MEDS ORDERED: BACITRACIN/POLYMYXIN B SULFATE 28.3 GM TUBE TP SCH (16:00)
[2018-03-01] MEDS: BACLOFEN 10 MG TAB PO SCH ×2 (16:34→20:05)
[2018-03-01] MEDS: SODIUM CHLORIDE 1,000 MG TAB PO SCH ×2 (16:35→20:05)
[2018-03-01] MEDS: DOCUSATE SODIUM 100 MG CAP PO SCH (20:05)
[2018-03-01] MEDS: FOLIC ACID 1 MG TAB PO SCH (20:05)
[2018-03-01] MEDS: FAMOTIDINE 20 MG TAB PO SCH (20:05)
[2018-03-01] MEDS: MONTELUKAST SODIUM 10 MG TAB PO SCH (20:05)
[2018-03-01] MEDS: ATORVASTATIN CALCIUM 10 MG TAB PO SCH (20:05)
[2018-03-01] MEDS: ESCITALOPRAM OXALATE 10 MG TAB PO SCH (20:05)
[2018-03-01] MEDS: GABAPENTIN 300 MG CAP PO SCH (20:05)
[2018-03-01] MEDS: LORazepam 0.5 MG TAB PO SCH (20:05)
[2018-03-02] MEDS: SODIUM CHLORIDE 1,000 MG TAB PO SCH ×3 (08:29→20:23)
[2018-03-02] MEDS: FAMOTIDINE 20 MG TAB PO SCH ×2 (08:30→20:22)
[2018-03-02] MEDS: GABAPENTIN 300 MG CAP PO SCH ×2 (08:30→20:22)
[2018-03-02] MEDS: BACLOFEN 10 MG TAB PO SCH ×3 (08:30→20:23)
[2018-03-02] MEDS: DOCUSATE SODIUM 100 MG CAP PO SCH ×2 (08:30→20:22)
--- NOTE | 2018-03-02 10:47 | SOAPPROG ---
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 PT and OT to optimize mobility and activities of daily living. Mild dysarthria, dysphagia, and cognitive deficits due to stroke. Assessment and treatment per Speech and Language Pathology. Acute cerebral edema with mental status changes and headache. These have resolved. Continue sodium chloride 1000 mg three times daily for now. No need for fluid restriction. Recheck Na 03/03/2018. Chronic asthma, stable. Hyperesthesia of the left side of her mouth. She is already taking gabapentin for post stroke allodynia of the left leg. Continue gabapentin. Consider titration if she has continued symptoms. Continue baclofen for presumed increased tone due to her stroke. Depression. Continue escitalopram. This may also promote neural recovery, though the SSRI study that was done demonstrating this effect was done on fluoxetine. Dyslipidemia. Continue atorvastatin for secondary stroke prophylaxis. She is prescribed opiates for pain. Will monitor her use and will observe further regarding what is a source of the pain and whether there are other ways to address it. Prophylaxis. She is at elevated risk for DVT, but the discharging team at [facility] was concerned about risk for further hemorrhage, and so she is on no DVT prophylaxis. Ultrasound studies of the legs were done following her initial admission to inpatient rehabilitation on 02/17/2018, which demonstrated no DVTs and, though she was mildly tachycardic upon initial assessment today at inpatient rehabilitation, she otherwise has no signs or symptoms of DVT, including no leg swelling, calf tenderness, or hypoxia. Will continue to monitor and will promote mobility as much as possible. 03/02/18 12:56 Subjective: No complaints. Sleeping well. No headache. Notes improvement in left-sided movement. She reports she is still restricting fluids. Has tooth sensitivity on the left side of her mouth. She is using Sensodyne toothpaste. She does not want any change in the gabapentin prescription. Objective: Vital Signs Temp Pulse Resp BP Pulse Ox 37.0 C 117 H 16 96/76 L 95 03/01/18 20:00 03/02/18 08:00 03/01/18 20:00 03/02/18 08:00 03/02/18 08:00 Laboratory Results 03/02/18 06:35 03/01/18 03/02/18 03/03/18 05:59 05:59 05:59 Intake Total 240 118 Output Total 650 150 Balance -410 -32 Physical Exam - Physical Exam General Appearance: WD/WN, alert, no apparent distress Respiratory: normal breath sounds, No crackles, No rhonchi, No wheezing Cardiac/Chest: regular rate, rhythm, No edema, No diastolic murmur, No systolic murmur Skin: normal color, warm/dry Extremities: No calf tenderness Neuro/Psych: alert, normal mood/affect, oriented x 3, facial droop (Left), motor weakness (Distal left upper extremity at wrist and fingers. Has supination and pronation.) ICD10 Worksheet Patient Problems: Problems Problem Status Onset CVA (cerebral vascular accident) Acute Intracranial hemorrhage Acute
[2018-03-02] MEDS: HYDROCODONE/APAP 5/325 TAB PO PRN (15:49)
[2018-03-02] MEDS: FOLIC ACID 1 MG TAB PO SCH (20:22)
[2018-03-02] MEDS: ESCITALOPRAM OXALATE 10 MG TAB PO SCH (20:22)
[2018-03-02] MEDS: ATORVASTATIN CALCIUM 10 MG TAB PO SCH (20:22)
[2018-03-02] MEDS: MONTELUKAST SODIUM 10 MG TAB PO SCH (20:23)
[2018-03-02] MEDS: LORazepam 0.5 MG TAB PO SCH (20:23)
[2018-03-03] MEDS: BACLOFEN 10 MG TAB PO SCH ×3 (08:28→20:34)
[2018-03-03] MEDS: DOCUSATE SODIUM 100 MG CAP PO SCH ×2 (08:28→20:31)
[2018-03-03] MEDS: SODIUM CHLORIDE 1,000 MG TAB PO SCH ×3 (08:28→20:42)
[2018-03-03] MEDS: FAMOTIDINE 20 MG TAB PO SCH ×2 (08:28→20:31)
[2018-03-03] MEDS: GABAPENTIN 300 MG CAP PO SCH ×2 (08:28→20:34)
--- NOTE | 2018-03-03 13:18 | SOAPPROG ---
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 * Initial functional independence measure is 79 on 03/03/2018. She ambulated 50 ft with contact guard to minimal assist using a front wheeled walker. She does grooming and hygiene seated with standby assist. Upper body dressing requires contact guard to minimal assist, lower body dressing requires minimal assist. She did a shower transfer with minimal assist and bathed with minimal assist. PT reports emerging movement at fingers. Visual acuity 20/60 on right and 20/50 on left. She has mild left neglect * Continue PT and OT to optimize mobility and activities of daily living. Mild dysarthria, dysphagia, and cognitive deficits due to stroke. * Scored 30/30 on the MO C A. She is on a dysphagia 3 diet with nectar thick liquids. She was symptomatic with thin liquids. * Continue Speech and Language Pathology. Acute cerebral edema with mental status changes and headache. These have resolved. Continue sodium chloride 1000 mg three times daily for now. No need for fluid restriction. * Sodium 137 on 03/03/2018, down from 140 on 03/02/2018. Check sodium q.day. Will not discontinue sodium chloride tablets yet. Chronic asthma, stable. Hyperesthesia of the left side of her mouth. She is already taking gabapentin for post stroke allodynia of the left leg. Continue gabapentin. Consider titration if she has continued symptoms. Continue baclofen for increased tone due to her stroke. * Discussed with PT on 03/02/2018. Depression. Continue escitalopram. This may also promote neural recovery, though the SSRI study that was done demonstrating this effect was done on fluoxetine. Dyslipidemia. Continue atorvastatin for secondary stroke prophylaxis. She is prescribed opiates for pain. Will monitor her use and will observe further regarding what is a source of the pain and whether there are other ways to address it. Prophylaxis. She is at elevated risk for DVT, but the discharging team at [facility] was concerned about risk for further hemorrhage, and so she is on no DVT prophylaxis. Ultrasound studies of the legs were done following her initial admission to inpatient rehabilitation on 02/17/2018, which demonstrated no DVTs and, though she was mildly tachycardic upon initial assessment today at inpatient rehabilitation, she otherwise has no signs or symptoms of DVT, including no leg swelling, calf tenderness, or hypoxia. Will continue to monitor and will promote mobility as much as possible. DISPOSITION: Attended staffing, 15 min. Discussed with case management, dietitian, nursing, PT, OT, [employer]. Lives with and 2 school-age children. Plans to return to home. Set tentative discharge date for 03/21/2018. 03/03/18 13:13 Subjective: Reports mild headache today. Has improved function of left hand. No cough or dyspnea, no calf pain. Sleeping well. Objective: Vital Signs Temp Pulse Resp BP Pulse Ox 36.4 C 106 H 20 113/86 H 95 03/02/18 20:00 03/03/18 08:00 03/03/18 08:00 03/03/18 08:00 03/03/18 08:00 Laboratory Results 03/03/18 06:30 03/02/18 03/03/18 03/04/18 05:59 05:59 05:59 Intake Total 240 461 558 Output Total 650 750 Balance -410 -115 558 - Time Spent With Patient Time Spent With Patient: Greater than 35 min floor time today, including more than 50% of time in coordination of care during staffing, and counseling patient. Physical Exam - Physical Exam General Appearance: WD/WN, alert, no apparent distress Respiratory: normal breath sounds, No crackles, No rhonchi, No wheezing Cardiac/Chest: regular rate, rhythm, No edema, No diastolic murmur, No systolic murmur Skin: normal color, warm/dry Extremities: No calf tenderness Neuro/Psych: alert, normal mood/affect, oriented x 3 ICD10 Worksheet Patient Problems: Problems Problem Status Onset CVA (cerebral vascular accident) Acute Intracranial hemorrhage Acute
--- NOTE | 2018-03-03 19:05 | PDOREHIP ---
Admission [facility] - Admission - 3 Day Assessment Period Admission Date/Day 1: 03/01/18 Day 2: 03/02/18 Day 3: 03/03/18 - Active Diagnoses Comorbidities and Co-existing Conditions at Admission: 95198. None of the Above - Skin Conditions Unhealed Pressure Ulcer (1 or more/Stage 1 or >)-Admission: 0. No # Stage 1 Pressure Ulcers-Admission: 0 # Stage 2 Pressure Ulcers-Admission: 0 # Stage 3 Pressure Ulcers-Admission: 0 # Stage 4 Pressure Ulcers-Admission: 0 # Unstageable Pressure Ulcers (Non-remove Dress)-Admission: 0 # Unstageable Pressure Ulcers (Slough/Eschar)-Admission: 0 # Unstageable Pressure Ulcers (Deep Tissue Injury)-Admission: 0 Discharge [facility] - Discharge - 3 Day Assessment Period 2 Days Prior to Anticipated Discharge Date: 03/19/18 1 Day Prior to Anticipated Discharge Date: 03/20/18 Anticipated Discharge Date: 03/21/18
[2018-03-03] MEDS: ATORVASTATIN CALCIUM 10 MG TAB PO SCH (20:30)
[2018-03-03] MEDS: FOLIC ACID 1 MG TAB PO SCH (20:31)
[2018-03-03] MEDS: ESCITALOPRAM OXALATE 10 MG TAB PO SCH (20:34)
[2018-03-03] MEDS: LORazepam 0.5 MG TAB PO SCH (20:42)
[2018-03-03] MEDS: MONTELUKAST SODIUM 10 MG TAB PO SCH (20:42)
[2018-03-04] MEDS: MULTIVITAMINS 1 EACH TAB PO SCH (08:22)
[2018-03-04] MEDS: SODIUM CHLORIDE 1,000 MG TAB PO SCH ×3 (08:22→21:04)
[2018-03-04] MEDS: DOCUSATE SODIUM 100 MG CAP PO SCH ×2 (08:22→21:01)
[2018-03-04] MEDS: FAMOTIDINE 20 MG TAB PO SCH ×2 (08:22→20:59)
[2018-03-04] MEDS: BACLOFEN 10 MG TAB PO SCH ×3 (08:22→21:04)
[2018-03-04] MEDS: GABAPENTIN 300 MG CAP PO SCH ×2 (08:22→20:59)
--- NOTE | 2018-03-04 13:35 | HOSPPROG ---
Hospitalist Progress Note Assessment/Plan: Assessment: 42 yo F p/w acute intracranial hemorrhage s/p damon damon bypass c/b acute cerebral edema Plan: # Intracranial hemorrhage. R side hemorrhagic CVA as complication of damon damon bypass surgery, w residual dysarthria/dysphagia -cont baclofen to reduce spasticity, gabapentin for allodynia -cont therapy # Cerebral edema. Acute, 2/2 ICH, patient w/ selective hypernatremia and now monitoring to ensure she does not become hyponatremic s/p loosening interventions -sNa 136 and downtrending today after lifting fluid restriction -counseled patient regarding the need to keep a balanced serum sodium concentration in the context of above -1.1L intake over past 24hrs, agreed upon 1.0L/day restriction + ongoing use of salt tabs, gauge effect on tomorrow's sNa level # HLD. Chronic, cont statin Diet. Regular w/ 1L/day fluid rest PPx. SCDs Code. Full Dispo. ADD uncertain, ongoing therapy needs. Subjective: patient w/o significant thirst Objective: Vital Signs Temp Pulse Resp BP Pulse Ox 36.3 C 94 15 105/76 99 03/04/18 08:00 03/04/18 08:00 03/04/18 08:00 03/04/18 08:00 03/04/18 08:00 Laboratory Results 03/04/18 08:20 03/03/18 03/04/18 03/05/18 05:59 05:59 05:59 Intake Total 461 1098 Output Total 750 450 400 Balance -289 648 -400 - Time Spent With Patient Time Spent with Patient: greater than 25 minutes Time Spent with Patient: Greater than 25 minutes spent on this patients care, greater than 50% of time spent counseling, educating, and coordinating care regarding the above mentioned plan. - Physical Exam Constitutional: no apparent distress, appears nourished, not in pain, No uncomfortable Cardiovascular: regular rate and rhythym, no murmur, rub, or gallop, No edema Respiratory: no respiratory distress, no rales or rhonchi, clear to auscultation Gastrointestinal: normoactive bowel sounds, soft, non-tender abdomen, no palpable masses Neurologic: AAOx3 Psychiatric: interacting appropriately, not anxious, not encephalopathic, thought process linear ICD10 Worksheet Patient Problems: Problems Problem Status Onset Intracranial hemorrhage Acute CVA (cerebral vascular accident) Acute
[2018-03-04] MEDS: HYDROCODONE/APAP 5/325 TAB PO PRN (20:10)
[2018-03-04] MEDS: ATORVASTATIN CALCIUM 10 MG TAB PO SCH (20:59)
[2018-03-04] MEDS: ESCITALOPRAM OXALATE 10 MG TAB PO SCH (20:59)
[2018-03-04] MEDS: FOLIC ACID 1 MG TAB PO SCH (21:00)
[2018-03-04] MEDS: LORazepam 0.5 MG TAB PO SCH (21:03)
[2018-03-04] MEDS: MONTELUKAST SODIUM 10 MG TAB PO SCH (21:03)
[2018-03-05] MEDS: FAMOTIDINE 20 MG TAB PO SCH ×2 (08:28→21:14)
[2018-03-05] MEDS: DOCUSATE SODIUM 100 MG CAP PO SCH ×2 (08:28→21:15)
[2018-03-05] MEDS: GABAPENTIN 300 MG CAP PO SCH ×2 (08:28→21:14)
[2018-03-05] MEDS: SODIUM CHLORIDE 1,000 MG TAB PO SCH ×3 (08:28→21:14)
[2018-03-05] MEDS: MULTIVITAMINS 1 EACH TAB PO SCH (08:28)
[2018-03-05] MEDS: BACLOFEN 10 MG TAB PO SCH ×3 (08:28→21:15)
[2018-03-05] MEDS: ESCITALOPRAM OXALATE 10 MG TAB PO SCH (21:14)
[2018-03-05] MEDS: ATORVASTATIN CALCIUM 10 MG TAB PO SCH (21:14)
[2018-03-05] MEDS: MONTELUKAST SODIUM 10 MG TAB PO SCH (21:15)
[2018-03-05] MEDS: LORazepam 0.5 MG TAB PO SCH (21:15)
[2018-03-05] MEDS: FOLIC ACID 1 MG TAB PO SCH (21:15)
[2018-03-05] MEDS: HYDROCODONE/APAP 5/325 TAB PO PRN (21:18)
--- NOTE | 2018-03-05 23:34 | HOSPPROG ---
Hospitalist Progress Note Assessment/Plan: Assessment: 42 yo F p/w acute intracranial hemorrhage s/p damon damon bypass c/b acute cerebral edema Plan: # Intracranial hemorrhage. R side hemorrhagic CVA as complication of damon damon bypass surgery, w/ residual dysarthria/dysphagia -cont baclofen to reduce spasticity, gabapentin for allodynia -cont therapy # Perioral paresthesias. Acute, unclear etiology, no oral e/o infxn, no e/o dry mouth -suspect 2/2 above -encouraged mint/candy/lozenge to keep mouth moistened and encourage salivation # Cerebral edema. Acute, 2/2 ICH, patient w/ selective hypernatremia and now monitoring to ensure she does not become hyponatremic s/p loosening interventions -sNa 138 and uptrending today after reinitiating fluid restriction of 1.0/day -if sNa stable or rising tomorrow, can try liberalizing to 1.2/day and gauge effect, given ongoing thirst # HLD. Chronic, cont statin Diet. Regular w/ 1L/day fluid rest PPx. SCDs Code. Full Dispo. ADD uncertain, ongoing therapy needs. Subjective: thirsty, perioral pain/sensations Objective: Vital Signs Temp Pulse Resp BP Pulse Ox 36.9 C 112 H 16 116/84 H 97 03/05/18 22:26 03/05/18 19:41 03/05/18 19:41 03/05/18 19:41 03/05/18 19:41 Laboratory Results 03/05/18 06:15 03/04/18 03/05/18 03/06/18 05:59 05:59 05:59 Intake Total 1098 270 300 Output Total 450 400 550 Balance 648 -130 -250 - Physical Exam Constitutional: no apparent distress, appears nourished, not in pain Ears, Nose, Mouth, Throat: moist mucous membranes, no oral mucosal ulcers, other (no oral lesions), No oral thrush Cardiovascular: regular rate and rhythym, no murmur, rub, or gallop, No edema Respiratory: no respiratory distress, no rales or rhonchi, clear to auscultation Gastrointestinal: normoactive bowel sounds, soft, non-tender abdomen, No distension Neurologic: AAOx3, weakness (LUE), facial droop (L face), No sensation intact bilaterally (LUE paresthesias) Psychiatric: interacting appropriately, not anxious, not encephalopathic, thought process linear ICD10 Worksheet Patient Problems: Problems Problem Status Onset Intracranial hemorrhage Acute CVA (cerebral vascular accident) Acute
[2018-03-06] MEDS: DOCUSATE SODIUM 100 MG CAP PO SCH ×2 (08:33→21:23)
[2018-03-06] MEDS: MULTIVITAMINS 1 EACH TAB PO SCH (08:33)
[2018-03-06] MEDS: BACLOFEN 10 MG TAB PO SCH ×3 (08:33→21:24)
[2018-03-06] MEDS: FAMOTIDINE 20 MG TAB PO SCH ×2 (08:33→21:31)
[2018-03-06] MEDS: SODIUM CHLORIDE 1,000 MG TAB PO SCH ×3 (08:33→21:24)
[2018-03-06] MEDS: GABAPENTIN 300 MG CAP PO SCH ×2 (08:34→21:24)
--- NOTE | 2018-03-06 12:42 | SOAPPROG ---
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 * Initial functional independence measure is 79 on 03/03/2018. She ambulated 50 ft with contact guard to minimal assist using a front wheeled walker. She does grooming and hygiene seated with standby assist. Upper body dressing requires contact guard to minimal assist, lower body dressing requires minimal assist. She did a shower transfer with minimal assist and bathed with minimal assist. PT reports emerging movement at fingers. Visual acuity 20/60 on right and 20/50 on left. She has mild left neglect * Has subsequently ambulated 250 ft with a trekking pole and standby assist. * Continue PT and OT to optimize mobility and activities of daily living. Mild dysarthria, dysphagia, and cognitive deficits due to stroke. * Scored 30/30 on the MOCA. She is on a dysphagia 3 diet with nectar thick liquids. She was symptomatic with thin liquids. * Continue Speech and Language Pathology. Acute cerebral edema with mental status changes and headache. These have resolved. * Sodium 137 on 03/03/2018, down from 140 on 03/02/2018. Angel of 136 on 2017. Fluid restriction was reinstated at 1000 cc/day. Sodium up to 140 of . Liberalize fluid restriction to 1200 cc/doy started 03/06/2018. Check sodium q.day. Will not discontinue sodium chloride tablets yet. Chronic asthma, stable. Hyperesthesia of the left side of her mouth. She is already taking gabapentin for post stroke allodynia of the left leg. * More consistent with tooth hypersensitivity. Discussed not over brushing. Continue toothpaste for sensitive teeth. Advised leaving toothpaste on teeth and not rinsing after brushing. Continue baclofen for increased tone due to her stroke. * Discussed with PT on 03/02/2018. Depression. Continue escitalopram. This may also promote neural recovery, though the SSRI study that was done demonstrating this effect was done on fluoxetine. Dyslipidemia. Continue atorvastatin for secondary stroke prophylaxis. She is prescribed opiates for pain. Will monitor her use and will observe further regarding what is a source of the pain and whether there are other ways to address it. Prophylaxis. She is at elevated risk for DVT, but the discharging team at [facility] was concerned about risk for further hemorrhage, and so she is on no DVT prophylaxis. Ultrasound studies of the legs were done following her initial admission to inpatient rehabilitation on 02/17/2018, which demonstrated no DVTs and, though she was mildly tachycardic upon initial assessment today at inpatient rehabilitation, she otherwise has no signs or symptoms of DVT, including no leg swelling, calf tenderness, or hypoxia. Will continue to monitor and will promote mobility as much as possible. DISPOSITION: Lives with and 2 school-age children. Plans to return to home. Set tentative discharge date for 03/21/2018. 03/06/18 12:35 Subjective: Continues to complain of left-sided tooth pain. It hurts when she is eating or with hot water. Otherwise without complaint. No headaches. Sleeping well. Objective: Vital Signs Temp Pulse Resp BP Pulse Ox 36.7 C 78 16 117/89 H 95 03/06/18 05:51 03/06/18 05:51 03/06/18 05:51 03/06/18 05:51 03/06/18 05:51 Laboratory Results 03/06/18 06:00 03/05/18 03/06/18 03/07/18 05:59 05:59 05:59 Intake Total 270 400 Output Total 400 550 Balance -130 -150 Physical Exam - Physical Exam General Appearance: WD/WN, alert, no apparent distress Respiratory: No accessory muscle use, No decreased breath sounds Skin: normal color, warm/dry Neuro/Psych: alert, normal mood/affect, oriented x 3 ICD10 Worksheet Patient Problems: Problems Problem Status Onset CVA (cerebral vascular accident) Acute Intracranial hemorrhage Acute
[2018-03-06] MEDS ORDERED: MELATONIN 3 MG TAB ONE (21:22)
[2018-03-06] MEDS: FOLIC ACID 1 MG TAB PO SCH (21:23)
[2018-03-06] MEDS: ATORVASTATIN CALCIUM 10 MG TAB PO SCH (21:23)
[2018-03-06] MEDS: ESCITALOPRAM OXALATE 10 MG TAB PO SCH (21:23)
[2018-03-06] MEDS: LORazepam 0.5 MG TAB PO SCH (21:24)
[2018-03-06] MEDS: MONTELUKAST SODIUM 10 MG TAB PO SCH (21:24)
[2018-03-06] MEDS: MELATONIN 3 MG TAB PO PRN (21:31)
[2018-03-06] MEDS: HYDROCODONE/APAP 5/325 TAB PO PRN (23:36)
[2018-03-07] MEDS: DOCUSATE SODIUM 100 MG CAP PO SCH ×2 (08:13→20:43)
[2018-03-07] MEDS: GABAPENTIN 300 MG CAP PO SCH ×2 (08:13→20:41)
[2018-03-07] MEDS: FAMOTIDINE 20 MG TAB PO SCH ×2 (08:13→20:43)
[2018-03-07] MEDS: SODIUM CHLORIDE 1,000 MG TAB PO SCH ×3 (08:13→20:43)
[2018-03-07] MEDS: BACLOFEN 10 MG TAB PO SCH ×3 (08:14→20:40)
[2018-03-07] MEDS: MULTIVITAMINS 1 EACH TAB PO SCH (08:17)
[2018-03-07] MEDS ORDERED: ACETAMINOPHEN 325 MG TAB PO PRN (14:35)
--- NOTE | 2018-03-07 14:40 | SOAPPROG ---
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 * Initial functional independence measure is 79 on 03/03/2018. She ambulated 50 ft with contact guard to minimal assist using a front wheeled walker. She does grooming and hygiene seated with standby assist. Upper body dressing requires contact guard to minimal assist, lower body dressing requires minimal assist. She did a shower transfer with minimal assist and bathed with minimal assist. PT reports emerging movement at fingers. Visual acuity 20/60 on right and 20/50 on left. She has mild left neglect * Has subsequently ambulated 250 ft with a trekking pole and standby assist. * Continue PT and OT to optimize mobility and activities of daily living. Mild dysarthria, dysphagia, and cognitive deficits due to stroke. * Scored 30/30 on the MOCA. She is on a dysphagia 3 diet with nectar thick liquids. She was symptomatic with thin liquids. * Continue Speech and Language Pathology. Acute cerebral edema with mental status changes and headache. These have resolved. * Sodium 137 on 03/03/2018, down from 140 on 03/02/2018. Angel of 136 on 2017. Fluid restriction was reinstated at 1000 cc/day. Sodium up to 140 of . Liberalize fluid restriction to 1200 cc/doy started 03/06/2018. Check sodium q.day. Will not discontinue sodium chloride tablets yet. Chronic asthma, stable. Hyperesthesia of the left side of her mouth. She is already taking gabapentin for post stroke allodynia of the left leg. * More consistent with tooth hypersensitivity. Discussed not over brushing. Continue toothpaste for sensitive teeth. Advised leaving toothpaste on teeth and not rinsing after brushing. * Ordered ibuprofen and Tylenol p.r.n. starting 03/07/2018. Continue baclofen for increased tone due to her stroke. * Discussed with PT on 03/02/2018. Depression. Continue escitalopram. This may also promote neural recovery, though the SSRI study that was done demonstrating this effect was done on fluoxetine. Dyslipidemia. Continue atorvastatin for secondary stroke prophylaxis. She is prescribed opiates for pain. Will monitor her use and will observe further regarding what is a source of the pain and whether there are other ways to address it. Prophylaxis. She is at elevated risk for DVT, but the discharging team at [facility] was concerned about risk for further hemorrhage, and so she is on no DVT prophylaxis. Ultrasound studies of the legs were done following her initial admission to inpatient rehabilitation on 02/17/2018, which demonstrated no DVTs and, though she was mildly tachycardic upon initial assessment today at inpatient rehabilitation, she otherwise has no signs or symptoms of DVT, including no leg swelling, calf tenderness, or hypoxia. Will continue to monitor and will promote mobility as much as possible. DISPOSITION: Lives with and 2 school-age children. Plans to return to home. Set tentative discharge date for 03/21/2018. Will have home PT OT and [employer]. Needs to see neuro-ophthalmology after discharge. Primary care provider is Dr. Cindy Antonio at [facility] in [place]. 03/07/18 14:37 Subjective: Still has left-sided tooth pain. Otherwise without complaints. Ambulating longer distances. No fevers or chills, no cough or dyspnea. Objective: Vital Signs Temp Pulse Resp BP Pulse Ox 36.8 C 94 18 103/71 95 03/07/18 08:00 03/07/18 08:00 03/07/18 08:00 03/07/18 08:00 03/07/18 08:00 Laboratory Results 03/06/18 06:00 03/06/18 03/07/18 03/08/18 05:59 05:59 05:59 Intake Total 400 270 480 Output Total 550 Balance -150 270 480 Physical Exam - Physical Exam General Appearance: WD/WN, alert, no apparent distress Respiratory: No respiratory distress, No accessory muscle use Skin: normal color, warm/dry Neuro/Psych: alert, normal mood/affect, oriented x 3 ICD10 Worksheet Patient Problems: Problems Problem Status Onset CVA (cerebral vascular accident) Acute Intracranial hemorrhage Acute
[2018-03-07] MEDS: IBUPROFEN 600 MG TAB PO PRN (17:43)
[2018-03-07] MEDS: ATORVASTATIN CALCIUM 10 MG TAB PO SCH (20:40)
[2018-03-07] MEDS: MONTELUKAST SODIUM 10 MG TAB PO SCH (20:40)
[2018-03-07] MEDS: ESCITALOPRAM OXALATE 10 MG TAB PO SCH (20:41)
[2018-03-07] MEDS: LORazepam 0.5 MG TAB PO SCH (20:42)
[2018-03-07] MEDS: FOLIC ACID 1 MG TAB PO SCH (20:42)
[2018-03-07] MEDS: MELATONIN 3 MG TAB PO PRN (20:48)
[2018-03-08] MEDS: IBUPROFEN 600 MG TAB PO PRN ×2 (08:14→21:23)
[2018-03-08] MEDS: BACLOFEN 10 MG TAB PO SCH ×3 (08:15→21:14)
[2018-03-08] MEDS: GABAPENTIN 300 MG CAP PO SCH ×2 (08:15→21:16)
[2018-03-08] MEDS: SODIUM CHLORIDE 1,000 MG TAB PO SCH ×3 (08:15→21:13)
[2018-03-08] MEDS: FAMOTIDINE 20 MG TAB PO SCH ×2 (08:15→21:13)
[2018-03-08] MEDS: MULTIVITAMINS 1 EACH TAB PO SCH (08:15)
[2018-03-08] MEDS: DOCUSATE SODIUM 100 MG CAP PO SCH ×2 (09:06→21:17)
--- NOTE | 2018-03-08 14:13 | SOAPPROG ---
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 * Initial functional independence measure is 79 on 03/03/2018. She ambulated 50 ft with contact guard to minimal assist using a front wheeled walker. She does grooming and hygiene seated with standby assist. Upper body dressing requires contact guard to minimal assist, lower body dressing requires minimal assist. She did a shower transfer with minimal assist and bathed with minimal assist. PT reports emerging movement at fingers. Visual acuity 20/60 on right and 20/50 on left. She has mild left neglect * Has subsequently ambulated 250 ft with a trekking pole and standby assist. * Continue PT and OT to optimize mobility and activities of daily living. Mild dysarthria, dysphagia, and cognitive deficits due to stroke. * Scored 30/30 on the MOCA. She is on a dysphagia 3 diet with nectar thick liquids. She was symptomatic with thin liquids. * Continue Speech and Language Pathology. Acute cerebral edema with mental status changes and headache. These have resolved. * Sodium 137 on 03/03/2018, down from 140 on 03/02/2018. Sushant of 136 on 2017. Fluid restriction was reinstated at 1000 cc/day. Sodium up to 140 of , 139 on 03/08/2018. Liberalize fluid restriction to 1200 cc/day started 03/06/2018. Check sodium q.day. Will not discontinue sodium chloride tablets yet. Encouraged her to drink the full 1200 cc q.day because as of 03/08 she has had considerably lower fluid intake. Chronic asthma, stable. Hyperesthesia of the left side of her mouth. She is already taking gabapentin for post stroke allodynia of the left leg. * More consistent with tooth hypersensitivity. Discussed not over brushing. Continue toothpaste for sensitive teeth. Advised leaving toothpaste on teeth and not rinsing after brushing. * Ordered ibuprofen and Tylenol p.r.n. starting 03/07/2018. Good relief with ibuprofen. Continue baclofen for increased tone due to her stroke. * Discussed with PT on 03/02/2018. Depression. Continue escitalopram. This may also promote neural recovery, though the SSRI study that was done demonstrating this effect was done on fluoxetine. Dyslipidemia. Continue atorvastatin for secondary stroke prophylaxis. She is prescribed opiates for pain. She has not used hydrocodone/acetaminophen since 03/06/2018. Prophylaxis. She is at elevated risk for DVT, but the discharging team at [facility] was concerned about risk for further hemorrhage, and so she is on no DVT prophylaxis. Ultrasound studies of the legs were done following her initial admission to inpatient rehabilitation on 02/17/2018, which demonstrated no DVTs and, though she was mildly tachycardic upon initial assessment today at inpatient rehabilitation, she otherwise has no signs or symptoms of DVT, including no leg swelling, calf tenderness, or hypoxia. Will continue to monitor and will promote mobility as much as possible. DISPOSITION: Lives with and 2 school-age children. Plans to return to home. Set tentative discharge date for 03/21/2018. 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 Needs to see neuro-ophthalmology after discharge. Primary care provider is Dr. Cindy Antonio at [facility] in [place]. 03/08/18 14:08 Subjective: No complaints. Tooth sensitivity is improved with ibuprofen. Sleeping well. No cough or dyspnea. Has increased return of movement to the left hand. Objective: Vital Signs Temp Pulse Resp BP Pulse Ox 36.9 C 102 H 16 101/71 96 03/08/18 08:00 03/08/18 08:00 03/08/18 08:00 03/08/18 08:00 03/08/18 08:00 Laboratory Results 03/08/18 06:00 03/07/18 03/08/18 03/09/18 05:59 05:59 05:59 Intake Total 270 820 350 Balance 270 820 350 Physical Exam - Physical Exam General Appearance: WD/WN, alert, no apparent distress Respiratory: normal breath sounds, No crackles, No rhonchi, No wheezing Cardiac/Chest: regular rate, rhythm, No edema, No diastolic murmur, No systolic murmur Skin: normal color, warm/dry Neuro/Psych: alert, normal mood/affect, oriented x 3, motor weakness (Improved movement of the left hand.) ICD10 Worksheet Patient Problems: Problems Problem Status Onset CVA (cerebral vascular accident) Acute Intracranial hemorrhage Acute
[2018-03-08] MEDS: LORazepam 0.5 MG TAB PO SCH (21:13)
[2018-03-08] MEDS: ESCITALOPRAM OXALATE 10 MG TAB PO SCH (21:13)
[2018-03-08] MEDS: ATORVASTATIN CALCIUM 10 MG TAB PO SCH (21:14)
[2018-03-08] MEDS: FOLIC ACID 1 MG TAB PO SCH (21:15)
[2018-03-08] MEDS: MONTELUKAST SODIUM 10 MG TAB PO SCH (21:16)
[2018-03-08] MEDS: MELATONIN 3 MG TAB PO PRN (21:24)
[2018-03-09] MEDS: IBUPROFEN 600 MG TAB PO PRN ×2 (08:33→21:58)
[2018-03-09] MEDS: FAMOTIDINE 20 MG TAB PO SCH ×2 (08:34→22:00)
[2018-03-09] MEDS: MULTIVITAMINS 1 EACH TAB PO SCH (08:36)
[2018-03-09] MEDS: GABAPENTIN 300 MG CAP PO SCH ×2 (08:37→22:01)
[2018-03-09] MEDS: BACLOFEN 10 MG TAB PO SCH ×3 (08:38→22:00)
[2018-03-09] MEDS: SODIUM CHLORIDE 1,000 MG TAB PO SCH ×3 (08:38→22:00)
[2018-03-09] MEDS: DOCUSATE SODIUM 100 MG CAP PO SCH ×2 (08:40→22:00)
--- NOTE | 2018-03-09 10:57 | SOAPPROG ---
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 Working on symptom management this point and will look further into potential causes. Continues on salt tabs and some fluid restriction, her sodium has been stable in the normal range. We discussed today natural home use stasis of sodium and the likelihood that if she stopped her salt tabs and increase her fluid intake that her sodium would remain stable. Sodium was initially raised to decrease the cerebral swelling. Also discussed the risk to renal impairment in fluid restriction. Checking renal labs tomorrow. She feels that overall she is improving by tremendous amounts. A total of 25 min was spent on the floor in the care of the patient, Bull of which was spent in counseling coordination of care regarding sodium home use stasis and tooth pain. Additional issues reviewed without change today include dysarthria and dysphagia , headache, asthma, Baclofen for spasticity, depression, dyslipidemia, prophylaxis. 03/09/18 10:54 Subjective: Chief complaint: Tooth pain No acute events overnight. Patient denies any new shortness of breath or chest pain, no new numbness, tingling, or weakness. She has feels that she has had tooth pain ongoing since her initial surgery, upper and lower. Also she has been worried about her sodium and we discussed this at length. Otherwise she is doing well, feels that her progress is good, nursing feels that she is doing extremely well over the past few days. Objective: Vital Signs Temp Pulse Resp BP Pulse Ox 37.1 C 76 18 123/80 H 93 03/09/18 06:25 03/09/18 06:25 03/09/18 06:25 03/09/18 06:25 03/09/18 06:25 Laboratory Results 03/09/18 06:00 03/08/18 03/09/18 03/10/18 05:59 05:59 05:59 Intake Total 820 950 118 Balance 820 950 118 Physical Exam - Physical Exam General Appearance: WD/WN, alert, no apparent distress EENT: No scleral icterus (R), No scleral icterus (L) Respiratory: No respiratory distress, No accessory muscle use Cardiac/Chest: normal peripheral pulses, regular rate, rhythm, No edema Skin: normal color, warm/dry, No cyanosis, No diaphoresis Extremities: No pedal edema Neuro/Psych: alert, normal mood/affect ICD10 Worksheet Patient Problems: Problems Problem Status Onset CVA (cerebral vascular accident) Acute Intracranial hemorrhage Acute
[2018-03-09] MEDS: ESCITALOPRAM OXALATE 10 MG TAB PO SCH (21:58)
[2018-03-09] MEDS: ATORVASTATIN CALCIUM 10 MG TAB PO SCH (21:58)
[2018-03-09] MEDS: FOLIC ACID 1 MG TAB PO SCH (21:59)
[2018-03-09] MEDS: LORazepam 0.5 MG TAB PO SCH (22:00)
[2018-03-09] MEDS: MONTELUKAST SODIUM 10 MG TAB PO SCH (22:01)
[2018-03-09] MEDS: MELATONIN 3 MG TAB PO PRN (22:05)
[2018-03-10] MEDS: DOCUSATE SODIUM 100 MG CAP PO SCH ×2 (08:59→21:02)
[2018-03-10] MEDS: BACLOFEN 10 MG TAB PO SCH ×3 (08:59→21:01)
[2018-03-10] MEDS: GABAPENTIN 300 MG CAP PO SCH ×2 (09:00→21:00)
[2018-03-10] MEDS: IBUPROFEN 600 MG TAB PO PRN ×2 (09:00→19:35)
[2018-03-10] MEDS: SODIUM CHLORIDE 1,000 MG TAB PO SCH ×2 (09:00→17:39)
[2018-03-10] MEDS: MULTIVITAMINS 1 EACH TAB PO SCH (09:00)
[2018-03-10] MEDS: FAMOTIDINE 20 MG TAB PO SCH ×2 (09:00→21:00)
--- NOTE | 2018-03-10 12:38 | SOAPPROG ---
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 * Initial functional independence measure is 79 on 03/03/2018, improved to 91 as of 03/10/2018. Supervision to standby assist for transfers ambulation and stairs. Using tracking pole for uneven terrain. Standby assist for activities of daily living. Mild left hemineglect and decreased sensation and proprioception in the left upper extremity. Advancing to independent in her room. * Has ambulated 250 ft with a trekking pole and standby assist. * Continue PT and OT to optimize mobility and activities of daily living. Mild dysarthria, dysphagia, and cognitive deficits due to stroke. * Scored 30/30 on the MOCA. * Dysphagia is improving and she is on regular texture and thin liquids. Continues to receive NMES for left facial weakness. * Continue Speech and Language Pathology. Acute cerebral edema with mental status changes and headache. These have resolved. * Sodium and renal function stable on 1200 cc fluid restriction and sodium chloride 1000 mg three times daily with meals. Will change to 1500 mL fluid restriction and sodium chloride 1000 mg twice daily with meals starting 2017. Continue daily sodium check. If sodium a stable will further liberalize fluid intake and taper sodium chloride tablets. Chronic asthma, stable. Hyperesthesia of the left side of her mouth. She is already taking gabapentin for post stroke allodynia of the left leg. * More consistent with tooth hypersensitivity. Discussed not over brushing. Continue toothpaste for sensitive teeth. Advised leaving toothpaste on teeth and not rinsing after brushing. * Ordered ibuprofen and Tylenol p.r.n. starting 03/07/2018. Good relief with ibuprofen. Continue baclofen for increased tone due to her stroke. * Discussed with PT on 03/02/2018. Depression. Continue escitalopram. This may also promote neural recovery, though the SSRI study that was done demonstrating this effect was done on fluoxetine. Dyslipidemia. Continue atorvastatin for secondary stroke prophylaxis. She is prescribed opiates for pain. She has not used hydrocodone/acetaminophen since 03/06/2018. Prophylaxis. She is at elevated risk for DVT, but the discharging team at [facility] was concerned about risk for further hemorrhage, and so she is on no DVT prophylaxis. Ultrasound studies of the legs were done following her initial admission to inpatient rehabilitation on 02/17/2018, which demonstrated no DVTs and, though she was mildly tachycardic upon initial assessment today at inpatient rehabilitation, she otherwise has no signs or symptoms of DVT, including no leg swelling, calf tenderness, or hypoxia. Will continue to monitor and will promote mobility as much as possible. DISPOSITION: Attended staffing, 15 min. Discussed with nursing, complex case manager, dietitian, PT, OT, TRAVEL CLERK. Lives with and 2 school-age children. Plans to return to home. Set tentative discharge date for . Will have home PT OT and TRAVEL CLERK. Needs to see neuro-ophthalmology after discharge. Primary care provider is Dr. Cindy Antonio at [facility] in [place]. 03/10/18 12:34 Subjective: No complaints. Still has tooth discomfort but improved with use of ibuprofen. Ambulating better. Feels thirsty. Objective: Vital Signs Temp Pulse Resp BP Pulse Ox 37.0 C 71 12 128/78 H 97 03/10/18 07:10 03/10/18 07:10 03/10/18 07:10 03/10/18 07:10 03/10/18 07:10 Laboratory Results 03/10/18 06:00 03/09/18 03/10/18 03/11/18 05:59 05:59 05:59 Intake Total 950 1261 240 Output Total 300 Balance 950 961 240 - Time Spent With Patient Time Spent With Patient: Greater than 35 min floor time today, including more than 50% of time in coordination of care during staffing meeting, and counseling patient. Physical Exam - Physical Exam General Appearance: WD/WN, alert, no apparent distress Respiratory: No respiratory distress, No accessory muscle use Cardiac/Chest: No edema Skin: normal color, warm/dry Neuro/Psych: alert, normal mood/affect, oriented x 3, facial droop (Minimal left side) ICD10 Worksheet Patient Problems: Problems Problem Status Onset CVA (cerebral vascular accident) Acute Intracranial hemorrhage Acute
[2018-03-10] MEDS: FOLIC ACID 1 MG TAB PO SCH (21:00)
[2018-03-10] MEDS: ATORVASTATIN CALCIUM 10 MG TAB PO SCH (21:01)
[2018-03-10] MEDS: LORazepam 0.5 MG TAB PO SCH (21:02)
[2018-03-10] MEDS: POLYETHYLENE GLYCOL 3350 17 GM PKT PO PRN (21:02)
[2018-03-10] MEDS: MONTELUKAST SODIUM 10 MG TAB PO SCH (21:02)
[2018-03-10] MEDS: MELATONIN 3 MG TAB PO PRN (21:05)
[2018-03-10] MEDS: ESCITALOPRAM OXALATE 10 MG TAB PO SCH (21:05)
[2018-03-11] MEDS: SODIUM CHLORIDE 1,000 MG TAB PO SCH ×2 (07:46→17:17)
[2018-03-11] MEDS: GABAPENTIN 300 MG CAP PO SCH ×2 (07:46→20:33)
[2018-03-11] MEDS: BACLOFEN 10 MG TAB PO SCH ×3 (07:46→20:35)
[2018-03-11] MEDS: MULTIVITAMINS 1 EACH TAB PO SCH (07:47)
[2018-03-11] MEDS: IBUPROFEN 600 MG TAB PO PRN ×2 (07:47→17:24)
[2018-03-11] MEDS: POLYETHYLENE GLYCOL 3350 17 GM PKT PO PRN (07:47)
[2018-03-11] MEDS: DOCUSATE SODIUM 100 MG CAP PO SCH ×2 (07:47→20:41)
[2018-03-11] MEDS: FAMOTIDINE 20 MG TAB PO SCH ×2 (07:47→20:34)
--- NOTE | 2018-03-11 10:22 | SOAPPROG ---
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 * Initial functional independence measure is 79 on 03/03/2018, improved to 91 as of 03/10/2018. Supervision to standby assist for transfers ambulation and stairs. Using tracking pole for uneven terrain. Standby assist for activities of daily living. Mild left hemineglect and decreased sensation and proprioception in the left upper extremity. Advancing to independent in her room. * Has ambulated 250 ft with a trekking pole and standby assist. * Continue PT and OT to optimize mobility and activities of daily living. Mild dysarthria, dysphagia, and cognitive deficits due to stroke. * Scored 30/30 on the MOCA. * Dysphagia is improving and she is on regular texture and thin liquids. Continues to receive NMES for left facial weakness. * Continue Speech and Language Pathology. MILD LEFT SHOULDER SUBLUXATION. OCCUPATIONAL THERAPY TO INSTRUCT ON PENDULUM EXERCISES WELL ROTATOR CUFF STRENGTHENING EXERCISES, UPPER TRAPEZIUS STRENGTHENING EXERCISES, EXERCISES TO STRENGTHEN THE SHOULDER RETRACTORS Acute cerebral edema with mental status changes and headache. These have resolved. * Sodium and renal function stable on 1200 cc fluid restriction and sodium chloride 1000 mg three times daily with meals. Will change to 1500 mL fluid restriction and sodium chloride 1000 mg twice daily with meals starting 2017. Continue daily sodium check. If sodium a stable will further liberalize fluid intake and taper sodium chloride tablets. Chronic asthma, stable. Hyperesthesia of the left side of her mouth. She is already taking gabapentin for post stroke allodynia of the left leg. * More consistent with tooth hypersensitivity. Discussed not over brushing. Continue toothpaste for sensitive teeth. Advised leaving toothpaste on teeth and not rinsing after brushing. * Ordered ibuprofen and Tylenol p.r.n. starting 03/07/2018. Good relief with ibuprofen. Continue baclofen for increased tone due to her stroke. * Discussed with PT on 03/02/2018. Depression. Continue escitalopram. This may also promote neural recovery, though the SSRI study that was done demonstrating this effect was done on fluoxetine. Dyslipidemia. Continue atorvastatin for secondary stroke prophylaxis. She is prescribed opiates for pain. She has not used hydrocodone/acetaminophen since 03/06/2018. Prophylaxis. She is at elevated risk for DVT, but the discharging team at [facility] was concerned about risk for further hemorrhage, and so she is on no DVT prophylaxis. Ultrasound studies of the legs were done following her initial admission to inpatient rehabilitation on 02/17/2018, which demonstrated no DVTs and, though she was mildly tachycardic upon initial assessment today at inpatient rehabilitation, she otherwise has no signs or symptoms of DVT, including no leg swelling, calf tenderness, or hypoxia. Will continue to monitor and will promote mobility as much as possible. DISPOSITION: Attended staffing, 15 min. Discussed with nursing, shoe caser, dietitian, PT, OT, COMMERCIAL REAL ESTATE ATTORNEY. Lives with and 2 school-age children. Plans to return to home. Set tentative discharge date for . Will have home PT OT and COMMERCIAL REAL ESTATE ATTORNEY. Needs to see neuro-ophthalmology after discharge. Primary care provider is Dr. Cindy Antonio at [facility] in [place]. Plan: 03/11/18 10:22 Subjective: SHE REPORTS THAT SHE IS DOING WELL. NO COMPLAINTS. SHE IS HAPPY WITH HER PROGRESS IN REHAB THUS FAR. Objective: Vital Signs Temp Pulse Resp BP Pulse Ox 36.7 C 76 18 116/77 94 03/11/18 06:14 03/11/18 06:14 03/11/18 06:14 03/11/18 06:14 03/11/18 06:14 Laboratory Results 03/11/18 05:55 03/10/18 03/11/18 03/12/18 05:59 05:59 05:59 Intake Total 1261 1070 300 Output Total 300 Balance 961 1070 300 Physical Exam - Physical Exam General Appearance: WD/WN, alert, other (BRIGHT AFFECT) Respiratory: lungs clear, normal breath sounds Abdomen: non-tender, soft Skin: normal color, warm/dry Neuro/Psych: alert, normal mood/affect, oriented x 3, motor weakness (MILD WEAKNESS OF LEFT UPPER EXTREMITY INCLUDING SHOULDER GIRDLE MUSCLES, BICEPS, TRICEPS, WRIST/FINGER EXTENSORS AND HAND INTRINSICS BUT MARKEDLY IMPROVED COMPARED TO WHEN I LAST SAW PATIENT SEVERAL WEEKS AGO. 4/5 LEFT HIP FLEXORS, QUADRICEPS, HAMSTRINGS) ICD10 Worksheet Patient Problems: Problems Problem Status Onset CVA (cerebral vascular accident) Acute Intracranial hemorrhage Acute
[2018-03-11] MEDS: ESCITALOPRAM OXALATE 10 MG TAB PO SCH (20:33)
[2018-03-11] MEDS: FOLIC ACID 1 MG TAB PO SCH (20:34)
[2018-03-11] MEDS: ATORVASTATIN CALCIUM 10 MG TAB PO SCH (20:34)
[2018-03-11] MEDS: LORazepam 0.5 MG TAB PO SCH (20:35)
[2018-03-11] MEDS: MONTELUKAST SODIUM 10 MG TAB PO SCH (20:35)
[2018-03-11] MEDS: MELATONIN 3 MG TAB PO PRN (20:40)
[2018-03-12] MEDS: BACLOFEN 10 MG TAB PO SCH ×3 (07:44→20:23)
[2018-03-12] MEDS: GABAPENTIN 300 MG CAP PO SCH ×2 (07:44→20:24)
[2018-03-12] MEDS: SODIUM CHLORIDE 1,000 MG TAB PO SCH ×2 (07:44→17:07)
[2018-03-12] MEDS: IBUPROFEN 600 MG TAB PO PRN ×2 (07:44→20:23)
[2018-03-12] MEDS: FAMOTIDINE 20 MG TAB PO SCH ×2 (07:44→20:22)
[2018-03-12] MEDS: MULTIVITAMINS 1 EACH TAB PO SCH (07:44)
[2018-03-12] MEDS: DOCUSATE SODIUM 100 MG CAP PO SCH ×2 (07:45→20:23)
--- NOTE | 2018-03-12 09:43 | SOAPPROG ---
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 * Initial functional independence measure is 79 on 03/03/2018, improved to 91 as of 03/10/2018. Supervision to standby assist for transfers ambulation and stairs. Using tracking pole for uneven terrain. Standby assist for activities of daily living. Mild left hemineglect and decreased sensation and proprioception in the left upper extremity. Advancing to independent in her room. * Has ambulated 250 ft with a trekking pole and standby assist. * Continue PT and OT to optimize mobility and activities of daily living. Mild dysarthria, dysphagia, and cognitive deficits due to stroke. * Scored 30/30 on the MOCA. * Dysphagia is improving and she is on regular texture and thin liquids. Continues to receive NMES for left facial weakness. * Continue Speech and Language Pathology. MILD LEFT SHOULDER SUBLUXATION. OCCUPATIONAL THERAPY TO INSTRUCT ON PENDULUM EXERCISES WELL ROTATOR CUFF STRENGTHENING EXERCISES, UPPER TRAPEZIUS STRENGTHENING EXERCISES, EXERCISES TO STRENGTHEN THE SHOULDER RETRACTORS Acute cerebral edema with mental status changes and headache. These have resolved. * Sodium and renal function stable on 1200 cc fluid restriction and sodium chloride 1000 mg three times daily with meals. Will change to 1500 mL fluid restriction and sodium chloride 1000 mg twice daily with meals starting 2017. Continue daily sodium check. If sodium a stable will further liberalize fluid intake and taper sodium chloride tablets. CURRENT SODIUM LEVEL IS 137 AND HAS BEEN TRENDING DOWN FOR THE PAST SEVERAL DAYS. THEREFORE WILL GIVE 1 EXTRA DOSE OF SODIUM CHLORIDE 100 MG TODAY. INFORMED PHARMACY AND NURSING. Chronic asthma, stable. Hyperesthesia of the left side of her mouth. She is already taking gabapentin for post stroke allodynia of the left leg. * More consistent with tooth hypersensitivity. Discussed not over brushing. Continue toothpaste for sensitive teeth. Advised leaving toothpaste on teeth and not rinsing after brushing. * Ordered ibuprofen and Tylenol p.r.n. starting 03/07/2018. Good relief with ibuprofen. Continue baclofen for increased tone due to her stroke. * Discussed with PT on 03/02/2018. Depression. Continue escitalopram. This may also promote neural recovery, though the SSRI study that was done demonstrating this effect was done on fluoxetine. Dyslipidemia. Continue atorvastatin for secondary stroke prophylaxis. She is prescribed opiates for pain. She has not used hydrocodone/acetaminophen since 03/06/2018. NO COMPLAINTS OF PAIN OVER THE WEEKEND Prophylaxis. She is at elevated risk for DVT, but the discharging team at [facility] was concerned about risk for further hemorrhage, and so she is on no DVT prophylaxis. Ultrasound studies of the legs were done following her initial admission to inpatient rehabilitation on 02/17/2018, which demonstrated no DVTs and, though she was mildly tachycardic upon initial assessment today at inpatient rehabilitation, she otherwise has no signs or symptoms of DVT, including no leg swelling, calf tenderness, or hypoxia. Will continue to monitor and will promote mobility as much as possible. DISPOSITION: Attended staffing, 15 min. Discussed with nursing, family preservation caseworker, dietitian, PT, OT, ADJUNCT PROFESSOR OF ENGLISH. Lives with and 2 school-age children. Plans to return to home. Set tentative discharge date for . Will have home PT OT and ADJUNCT PROFESSOR OF ENGLISH. Needs to see neuro-ophthalmology after discharge. Primary care provider is Dr. Cindy Antonio at [facility] in [place]. Plan: 03/11/18 10:22 03/12/18 09:41 Subjective: DENIES FACIAL PAIN OR HEADACHES. DENIES LEFT SHOULDER PAIN. DENIES HEADACHE OR DIZZINESS. SHE WANTS TO KNOW HOW LONG HER PICC LINE WILL STAY IN. Objective: Vital Signs Temp Pulse Resp BP Pulse Ox 36.8 C 75 16 135/84 H 94 03/12/18 05:49 03/12/18 05:49 03/12/18 05:49 03/12/18 05:49 03/12/18 05:49 Laboratory Results 03/12/18 05:45 03/11/18 03/12/18 03/13/18 05:59 05:59 05:59 Intake Total 1070 1440 240 Output Total 1 Balance 1070 1440 239 Physical Exam - Physical Exam General Appearance: WD/WN, alert, no apparent distress Respiratory: lungs clear, normal breath sounds Cardiac/Chest: regular rate, rhythm, No edema Abdomen: normal bowel sounds, non-tender, soft Skin: normal color, warm/dry, other (PICC LINE SITE WITHOUT ERYTHEMA OR DRAINAGE.) Neuro/Psych: motor weakness (MY RIGHT HEMIPARESIS. MILD RIGHT FACIAL DROOP.) ICD10 Worksheet Patient Problems: Problems Problem Status Onset CVA (cerebral vascular accident) Acute Intracranial hemorrhage Acute
[2018-03-12] MEDS ORDERED: SODIUM CHLORIDE 1,000 MG TAB PO ONE (09:45)
[2018-03-12] MEDS: FOLIC ACID 1 MG TAB PO SCH (20:21)
[2018-03-12] MEDS: LORazepam 0.5 MG TAB PO SCH (20:21)
[2018-03-12] MEDS: MONTELUKAST SODIUM 10 MG TAB PO SCH (20:22)
[2018-03-12] MEDS: ESCITALOPRAM OXALATE 10 MG TAB PO SCH (20:22)
[2018-03-12] MEDS: MELATONIN 3 MG TAB PO PRN (20:22)
[2018-03-12] MEDS: ATORVASTATIN CALCIUM 10 MG TAB PO SCH (20:22)
[2018-03-13] MEDS: SODIUM CHLORIDE 1,000 MG TAB PO SCH (08:02)
[2018-03-13] MEDS: MULTIVITAMINS 1 EACH TAB PO SCH (08:03)
[2018-03-13] MEDS: DOCUSATE SODIUM 100 MG CAP PO SCH ×2 (08:04→20:49)
[2018-03-13] MEDS: FAMOTIDINE 20 MG TAB PO SCH ×2 (08:04→20:50)
[2018-03-13] MEDS: GABAPENTIN 300 MG CAP PO SCH (08:04)
[2018-03-13] MEDS: BACLOFEN 10 MG TAB PO SCH (08:05)
--- NOTE | 2018-03-13 14:01 | SOAPPROG ---
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 * Initial functional independence measure is 79 on 03/03/2018, improved to 91 as of 03/10/2018. Supervision to standby assist for transfers ambulation and stairs. Using trekking pole for uneven terrain. Standby assist for activities of daily living. Mild left hemineglect and decreased sensation and proprioception in the left upper extremity. Advancing to independent in her room. * Has ambulated 250 ft with a trekking pole and standby assist. * Continue PT and OT to optimize mobility and activities of daily living. Mild dysarthria, dysphagia, and cognitive deficits due to stroke. * Scored 30/30 on the MOCA. * Dysphagia is improving and she is on regular texture and thin liquids. Continues to receive NMES for left facial weakness. * Continue Speech and Language Pathology. Acute cerebral edema with mental status changes and headache. These have resolved. * Sodium and renal function stable on 1200 cc fluid restriction and sodium chloride 1000 mg three times daily with meals. Will change to 1500 mL fluid restriction and sodium chloride 1000 mg twice daily with meals starting 2017. * Sodium continue stable, at 138 On 03/13/2018. Will discontinue sodium chloride tablets. Recheck sodium on 03/15/2018. Per her request, discontinue PICC. She reports she does not have a history of being difficult to draw blood from. Chronic asthma, stable. Hyperesthesia of the left side of her mouth. She is already taking gabapentin for post stroke allodynia of the left leg. * More consistent with tooth hypersensitivity. Discussed not over brushing. Continue toothpaste for sensitive teeth. Advised leaving toothpaste on teeth and not rinsing after brushing. * Ordered ibuprofen and Tylenol p.r.n. starting 03/07/2018. Good relief with ibuprofen. * Trial of reducing gabapentin from 300 mg twice daily to 100 mg three times daily starting today to tooth 18. Observe for recurrence of paresthesias or allodynia of the left leg. Increased left hamstring tone, on baclofen. * Discussed with PT on 03/02/2018. * Discontinue starting 03/13/2018. PT to continue to assess regarding need for baclofen. Consider restarting if needed. Depression. Continue escitalopram. This may also promote neural recovery, though the SSRI study that was done demonstrating this effect was done on fluoxetine. Dyslipidemia. Continue atorvastatin for secondary stroke prophylaxis. She is prescribed opiates for pain. She has not used hydrocodone/acetaminophen since 03/06/2018. Prophylaxis. She is at elevated risk for DVT, but the discharging team at [facility] was concerned about risk for further hemorrhage, and so she is on no DVT prophylaxis. Ultrasound studies of the legs were done following her initial admission to inpatient rehabilitation on 02/17/2018, which demonstrated no DVTs and, though she was mildly tachycardic upon initial assessment today at inpatient rehabilitation, she otherwise has no signs or symptoms of DVT, including no leg swelling, calf tenderness, or hypoxia. Will continue to monitor and will promote mobility as much as possible. DISPOSITION: Lives with and 2 school-age children. Plans to return to home. Set tentative discharge date for 03/17/2018. Will have home PT OT and THERMOMETER MAKER. Needs to see neuro-ophthalmology after discharge. Primary care provider is Dr. Cindy Antonio at [facility] in [place]. FOLLOW-UP: Will follow up with [place] neurosurgery, Dr. Velasco. Surgeon at [place] was Dr. Radha Rascon. [facility] pharmaceutical plant operator phone number is [phone]. 03/13/18 13:56 Subjective: Interested in discontinuing medications. Would like the PICC line removed. Has been made independent in her room and on the unit. Still has left tooth pain, improved with ibuprofen. Otherwise no complaints. Objective: Vital Signs Temp Pulse Resp BP Pulse Ox 36.7 C 94 16 115/76 94 03/13/18 06:38 03/13/18 06:38 03/13/18 06:38 03/13/18 06:38 03/13/18 06:38 Laboratory Results 03/13/18 06:10 03/12/18 03/13/18 03/14/18 05:59 05:59 05:59 Intake Total 1440 1290 Output Total 3 Balance 1440 1287 Physical Exam - Physical Exam General Appearance: WD/WN, alert, no apparent distress Respiratory: No respiratory distress, No accessory muscle use Skin: normal color, warm/dry Neuro/Psych: alert, normal mood/affect, oriented x 3, facial droop (Left) ICD10 Worksheet Patient Problems: Problems Problem Status Onset CVA (cerebral vascular accident) Acute Intracranial hemorrhage Acute
[2018-03-13] MEDS: GABAPENTIN 100 MG CAP PO SCH ×2 (15:52→20:50)
[2018-03-13] MEDS ORDERED: GABAPENTIN 300 MG CAP PO SCH (16:00)
[2018-03-13] MEDS: IBUPROFEN 600 MG TAB PO PRN (20:38)
[2018-03-13] MEDS: MELATONIN 3 MG TAB PO PRN (20:44)
[2018-03-13] MEDS: ESCITALOPRAM OXALATE 10 MG TAB PO SCH (20:49)
[2018-03-13] MEDS: MONTELUKAST SODIUM 10 MG TAB PO SCH (20:49)
[2018-03-13] MEDS: ATORVASTATIN CALCIUM 10 MG TAB PO SCH (20:49)
[2018-03-13] MEDS: FOLIC ACID 1 MG TAB PO SCH (20:50)
[2018-03-13] MEDS: LORazepam 0.5 MG TAB PO SCH (20:50)
[2018-03-14] MEDS: DOCUSATE SODIUM 100 MG CAP PO SCH ×2 (08:02→21:45)
[2018-03-14] MEDS: FAMOTIDINE 20 MG TAB PO SCH ×2 (08:02→21:45)
[2018-03-14] MEDS: GABAPENTIN 100 MG CAP PO SCH ×3 (08:02→21:45)
[2018-03-14] MEDS: MULTIVITAMINS 1 EACH TAB PO SCH (08:02)
--- NOTE | 2018-03-14 08:18 | SOAPPROG ---
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 Also no increase in spasticity per her report or on exam after stopping the baclofen. Continue rehabilitation plan. Plan for discharge on Tuesday. A total of 25 min was spent on the floor in the care of the patient, the majority of which was spent on discharge planning and rehabilitation prognosis. Additional issues reviewed without change today include dysarthria and dysphagia , headache, asthma, Baclofen for spasticity, depression, dyslipidemia, prophylaxis. 03/09/18 10:54 03/14/18 08:17 03/14/18 09:03 Subjective: Chief complaint: Discharge planning No acute events overnight. Patient denies any new shortness of breath or chest pain, no new numbness, tingling, or weakness. She feels that things are going well, discussed that is okay for her to liberalize her fluids if she wants to. No increase in neuropathic pain with decrease in gabapentin, no increasing spasticity upon stopping baclofen. Therapy going well. She is looking forward to going home on Tuesday, which is the current plan. Objective: Vital Signs Temp Pulse Resp BP Pulse Ox 36.5 C 82 16 119/83 H 95 03/14/18 07:40 03/14/18 07:40 03/14/18 07:40 03/14/18 07:40 03/14/18 07:40 Laboratory Results 03/13/18 06:10 03/13/18 03/14/18 03/15/18 05:59 05:59 05:59 Intake Total 1290 710 Output Total 3 Balance 1287 710 Physical Exam - Physical Exam General Appearance: WD/WN, alert, no apparent distress EENT: No scleral icterus (R), No scleral icterus (L) Respiratory: No respiratory distress, No accessory muscle use Cardiac/Chest: normal peripheral pulses, regular rate, rhythm, No edema Skin: normal color, warm/dry, No cyanosis, No diaphoresis Extremities: No swelling Neuro/Psych: alert, normal mood/affect, other (No spasticity appreciated in the left lower limb, no spasticity in the left upper limb.) ICD10 Worksheet Patient Problems: Problems Problem Status Onset CVA (cerebral vascular accident) Acute Intracranial hemorrhage Acute
[2018-03-14] MEDS: IBUPROFEN 600 MG TAB PO PRN ×2 (13:10→21:45)
[2018-03-14] MEDS: ESCITALOPRAM OXALATE 10 MG TAB PO SCH (21:45)
[2018-03-14] MEDS: FOLIC ACID 1 MG TAB PO SCH (21:45)
[2018-03-14] MEDS: MELATONIN 3 MG TAB PO PRN (21:45)
[2018-03-14] MEDS: ATORVASTATIN CALCIUM 10 MG TAB PO SCH (21:46)
[2018-03-14] MEDS: MONTELUKAST SODIUM 10 MG TAB PO SCH (21:46)
[2018-03-14] MEDS: LORazepam 0.5 MG TAB PO SCH (21:46)
[2018-03-15] MEDS: IBUPROFEN 600 MG TAB PO PRN ×2 (08:16→21:11)
[2018-03-15] MEDS: FAMOTIDINE 20 MG TAB PO SCH ×2 (08:17→21:04)
[2018-03-15] MEDS: GABAPENTIN 100 MG CAP PO SCH (08:17)
[2018-03-15] MEDS: DOCUSATE SODIUM 100 MG CAP PO SCH ×2 (08:18→21:04)
[2018-03-15] MEDS: MULTIVITAMINS 1 EACH TAB PO SCH (08:18)
--- NOTE | 2018-03-15 11:18 | SOAPPROG ---
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 * Initial functional independence measure is 79 on 03/03/2018, improved to 91 as of 03/10/2018. Supervision to standby assist for transfers ambulation and stairs. Using trekking pole for uneven terrain. Standby assist for activities of daily living. Mild left hemineglect and decreased sensation and proprioception in the left upper extremity. Advancing to independent in her room. * Has ambulated 250 ft with a trekking pole and standby assist. * Continue PT and OT to optimize mobility and activities of daily living. Mild dysarthria, dysphagia, and cognitive deficits due to stroke. * Scored 30/30 on the MOCA. * Dysphagia is improving and she is on regular texture and thin liquids. Continues to receive NMES for left facial weakness. * Continue Speech and Language Pathology. Acute cerebral edema with mental status changes and headache. These have resolved. * Fluid restriction has been progressively liberalized and sodium chloride tablets tapered and discontinued. Sodium remains stable at 138 on 03/15/2018. Will discontinue fluid restriction. Chronic asthma, stable. Hyperesthesia of the left side of her mouth. She is already taking gabapentin for post stroke allodynia of the left leg. * More consistent with tooth hypersensitivity. Discussed not over brushing. Continue toothpaste for sensitive teeth. Advised leaving toothpaste on teeth and not rinsing after brushing. * Ordered ibuprofen and Tylenol p.r.n. starting 03/07/2018. Good relief with ibuprofen. * Possibly due to bruxism. Escitalopram may contribute. Will decrease from 20 mg at bedtime to 10 mg at bedtime. Paresthesias, left leg. * Mild return of pins and needle sensation after decrease of gabapentin from 300 mg twice daily to 100 mg three times daily. It is not bothersome to her. Will discontinue gabapentin and observe; resume if symptoms become bothersome. Increased left hamstring tone, on baclofen. * Discussed with PT on 03/02/2018. * Discontinue starting 03/13/2018. No change noted in motor function. Depression. Monitor for worsening of symptoms with decreased dose of escitalopram. Dyslipidemia. Continue atorvastatin for secondary stroke prophylaxis. She is prescribed opiates for pain. She has not used hydrocodone/acetaminophen since 03/06/2018. Prophylaxis. She is at elevated risk for DVT, but the discharging team at [facility] was concerned about risk for further hemorrhage, and so she is on no DVT prophylaxis. Ultrasound studies of the legs were done following her initial admission to inpatient rehabilitation on 02/17/2018, which demonstrated no DVTs and, though she was mildly tachycardic upon initial assessment today at inpatient rehabilitation, she otherwise has no signs or symptoms of DVT, including no leg swelling, calf tenderness, or hypoxia. Will continue to monitor and will promote mobility as much as possible. DISPOSITION: Lives with and 2 school-age children. Plans to return to home. Set tentative discharge date for 03/17/2018. 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 Needs to see neuro-ophthalmology after discharge. Primary care provider is Dr. Cindy Antonio at [facility] in [place]. FOLLOW-UP: Will follow up with [place] neurosurgery, Dr. Velasco. Surgeon at [place] was Dr. Radha Rascon. [facility] pharmaceutical plant operator phone number is [phone]. 03/15/18 11:38 Subjective: She thinks her tooth pain may be due to grinding her teeth. She reports has purchased an [id number] tooth protecting device which she is trying. Otherwise without complaints. Objective: Vital Signs Temp Pulse Resp BP Pulse Ox 36.8 C 92 16 110/76 93 03/15/18 07:35 03/15/18 07:35 03/15/18 07:35 03/15/18 07:35 03/15/18 07:35 Laboratory Results 03/15/18 06:20 03/14/18 03/15/18 03/16/18 05:59 05:59 05:59 Intake Total 710 1010 120 Balance 710 1010 120 Physical Exam - Physical Exam General Appearance: WD/WN, alert, no apparent distress Respiratory: No respiratory distress, No accessory muscle use Skin: normal color, warm/dry Neuro/Psych: alert, normal mood/affect, oriented x 3, No abnormal gait ICD10 Worksheet Patient Problems: Problems Problem Status Onset CVA (cerebral vascular accident) Acute Intracranial hemorrhage Acute
[2018-03-15] MEDS: ESCITALOPRAM OXALATE 10 MG TAB PO SCH (21:04)
[2018-03-15] MEDS: ATORVASTATIN CALCIUM 10 MG TAB PO SCH (21:04)
[2018-03-15] MEDS: FOLIC ACID 1 MG TAB PO SCH (21:04)
[2018-03-15] MEDS: MONTELUKAST SODIUM 10 MG TAB PO SCH (21:05)
[2018-03-15] MEDS: LORazepam 0.5 MG TAB PO SCH (21:05)
[2018-03-15] MEDS: MELATONIN 3 MG TAB PO PRN (21:11)
[2018-03-16] MEDS: FAMOTIDINE 20 MG TAB PO SCH ×2 (07:34→19:50)
[2018-03-16] MEDS: MULTIVITAMINS 1 EACH TAB PO SCH (07:34)
[2018-03-16] MEDS: IBUPROFEN 600 MG TAB PO PRN ×3 (07:34→19:50)
[2018-03-16] MEDS: DOCUSATE SODIUM 100 MG CAP PO SCH ×2 (07:35→19:49)
--- NOTE | 2018-03-16 07:59 | PDOREHIP ---
Admission [facility] - Admission - 3 Day Assessment Period Admission Date/Day 1: 03/01/18 Day 2: 03/02/18 Day 3: 03/03/18 - Active Diagnoses Comorbidities and Co-existing Conditions at Admission: 26135. None of the Above Discharge [facility] - Discharge - 3 Day Assessment Period 2 Days Prior to Anticipated Discharge Date: 03/15/18 1 Day Prior to Anticipated Discharge Date: 03/16/18 Anticipated Discharge Date: 03/17/18 - Discharge Skin Conditions Unhealed Pressure Ulcer (1 or more/Stage 1 or >)-Discharge: 0. No # Stage 1 Pressure Ulcers-Discharge: 0 # Stage 2 Pressure Ulcers-Discharge: 0 # of These Stage 2 Pressure Ulcers Present on Admission: 0 # Stage 3 Pressure Ulcers-Discharge: 0 # of These Stage 3 Pressure Ulcers Present on Admission: 0 # Stage 4 Pressure Ulcers-Discharge: 0 # of These Stage 4 Pressure Ulcers Present on Admission: 0 # Unstageable Pressure Ulcers (Non-remove Dress)-Discharge: 0 # These Unstageable Pressure Ulcers (NRD)-Present on Admit: 0 # Unstageable Pressure Ulcers (Slough/Eschar)-Discharge: 0 # These Unstageable Pressure Ulcers(Slough) Present on Admit: 0 # Unstageable Pressure Ulcers (Deep Tissue Injury)-Discharge: 0 # These Unstageable Pressure Ulcers (DTI) Present on Admit: 0
--- NOTE | 2018-03-16 09:49 | SOAPPROG ---
CHON Progress Note Assessment/Plan: 42-year-old woman with a complicated neuro history with moyamoya disease status post extracranial to intracranial arterial bypass on the right side at [facility] with complication of perioperative hemorrhagic stroke with left upper extremity weakness, left lower extremity ataxia, dysphagia, impairments in mobility and self-care Today's update: Jaw pain still relatively similar, citalopram was decreased, no clear affect from that yet. She was emotional, we discussed the normal transition from inpatient rehabilitation to home. I also provided her with some patient handouts for moyamoya disease, and counseled her about managing the emotions associated with risk. Discussed the case with case management as well to find support. Plan to go home tomorrow. Regarding discharge medications, she has not required any nifedipine, continuing at a as a p.r.n. Medication, and plan to discuss with Dr. Velasquez as she may need education on when it is appropriate to take that medication. A total of 35 min was spent on the floor in the care of the patient, the majority of which was spent in counseling coordination of care regarding adjustment and anxiety as well as discharge planning. Additional issues reviewed without change today include dysarthria and dysphagia , headache, asthma, Baclofen for spasticity, depression, dyslipidemia, prophylaxis. 03/09/18 10:54 03/14/18 08:17 03/14/18 09:03 03/16/18 09:46 Subjective: Chief complaint: Concerned about discharge No acute events overnight. Patient denies any new shortness of breath or chest pain, no new numbness, tingling, or weakness. She expressed emotion surrounding her plans for discharge home, she is concerned about leaving the hospital environment and the support systems here. I counseled her that this was normal, and we talked about strategies for managing that risk and I am putting her in touch with cornelio of the social group worker for additional resources. In particular, I talked with her about [id number] medications and risks associated with those. She continues to have some mild jaw pain, does not appear to be significantly better or worse today. No other new symptoms. Objective: Vital Signs Temp Pulse Resp BP Pulse Ox 36.8 C 73 16 125/83 H 94 03/16/18 07:32 03/16/18 07:32 03/16/18 07:32 03/16/18 07:32 03/16/18 07:32 Laboratory Results 03/15/18 06:20 03/15/18 03/16/18 03/17/18 05:59 05:59 05:59 Intake Total 1010 960 250 Balance 1010 960 250 Physical Exam - Physical Exam General Appearance: WD/WN, alert, mild distress, anxiety EENT: No scleral icterus (R), No scleral icterus (L) Respiratory: No respiratory distress, No accessory muscle use Skin: normal color, warm/dry, No cyanosis, No diaphoresis Extremities: No swelling Neuro/Psych: alert, No normal mood/affect (Anxious mood) ICD10 Worksheet Patient Problems: Problems Problem Status Onset CVA (cerebral vascular accident) Acute Intracranial hemorrhage Acute
[2018-03-16] MEDS: GABAPENTIN 100 MG CAP PO SCH ×2 (15:16→19:50)
[2018-03-16] MEDS: MELATONIN 3 MG TAB PO PRN (19:49)
[2018-03-16] MEDS: LORazepam 0.5 MG TAB PO SCH (19:49)
[2018-03-16] MEDS: FOLIC ACID 1 MG TAB PO SCH (19:49)
[2018-03-16] MEDS: MONTELUKAST SODIUM 10 MG TAB PO SCH (19:49)
[2018-03-16] MEDS: ESCITALOPRAM OXALATE 10 MG TAB PO SCH (19:49)
[2018-03-16] MEDS: ATORVASTATIN CALCIUM 10 MG TAB PO SCH (19:49)
[2018-03-17 07:41] VITALS: BP 115/74
[2018-03-17] MEDS: IBUPROFEN 600 MG TAB PO PRN ×2 (07:41→14:03)
[2018-03-17] MEDS: FAMOTIDINE 20 MG TAB PO SCH (07:42)
[2018-03-17] MEDS: MULTIVITAMINS 1 EACH TAB PO SCH (07:42)
[2018-03-17] MEDS: GABAPENTIN 100 MG CAP PO SCH (07:42)
[2018-03-17] MEDS: DOCUSATE SODIUM 100 MG CAP PO SCH (07:42)
--- NOTE | 2018-03-17 13:19 | GDS ---
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 DISCHARGE DIAGNOSIS: Debility, status post hemorrhagic cerebrovascular accident as a complication of a right extracranial to intracranial arterial bypass for moyamoya disease. OTHER DISCHARGE DIAGNOSES: 1. Mild dysarthria, dysphagia, and cognitive deficits due to stroke. 2. Cerebral edema treated with hypernatremia. 3. Left tooth pain. 4. Left leg paresthesias. COMPLICATIONS: There were none. CONSULTATIONS: There were none. PROCEDURES: There were none. HISTORY AND HOSPITAL COURSE: For details of her initial rehabilitation stay from 02/16/2018 to , please see hospital record and discharge summary. She was rehospitalized at [facility] from 02/21/2018 to 2017 due to increased cerebral edema and mental status changes, and those details again are in the hospital record, as well as discharge summary. She returned to inpatient rehabilitation on 03/01/2018, for continued therapies towards return to home. She did very well. Her initial functional independence measure was 79 on 2017, which is consistent with [facility] level of care. She improved to 91 on 03/10/2018, consistent with assisted living facility level of function, at which point she required only supervision to standby assist for transfers, ambulation, and stairs. She used a trekking pole for uneven terrain but otherwise was not using an assistive device. She required standby assist for activities of daily living. She had decreased sensation and proprioception in the left upper extremity. She was advanced to independent in her room and on the unit. She ambulated with physical therapy in the community, crossing streets and visiting stores independently with a trekking pole, and was able to ambulate back to the hospital from the store holding a beverage and not using the trekking pole. She was able to climb and descend a curb steps with no rail independently. She was able to climb and descend as many as 11 steps with a step to step pattern using 1 rail. She continued to have some ataxia in the left upper extremity but was independent with activities of daily living as well as kitchen and laundry tasks. She continued to have some left facial droop and left facial muscle weakness. She received neuromotor electronic stimulation. She was advanced to a regular texture diet and thin liquids. As she had been rehospitalized with acute cerebral edema and treated with hypernatremia, her sodiums were followed closely. Fluid restriction was liberalized and then discontinued during her stay, and sodium chloride tablets were tapered and then discontinued. Her last sodium check on 03/15/2018 was normal at 138. On 03/10/2018, she had a full basic metabolic profile done, which also was normal but for a low creatinine of 0.5. She had no further symptoms of cerebral edema. She had a hyperesthesia of the left side of her mouth as well as left leg paresthesias. These were treated with gabapentin. Gabapentin was tapered and discontinued, but she had return of symptoms with mild pins and needles sensations of the left leg, so gabapentin was resumed. She eventually noted that she would grind her teeth, especially on the left side of her mouth and thought that this was responsible for her tooth discomfort. She had some relief of this with ibuprofen. Literature review revealed that bruxism can happen as a complication of a stroke. She was also on escitalopram 20 mg q. day. This was decreased to 10 mg q. day as escitalopram can contribute to or cause bruxism as well. DISCHARGE PLAN: Condition upon discharge is good. Activity is ad miladys. Diet is regular. MEDICATIONS UPON DISCHARGE: 1. Atorvastatin 10 mg p.o. q.h.s. 2. Docusate 100 mg p.o. b.i.d. 3. Escitalopram 10 mg p.o. q.h.s. 4. Gabapentin 100 mg p.o. t.i.d. 5. Ibuprofen 600 mg p.o. q.6 hours p.r.n. 6. Lorazepam 0.5 mg p.o. q.h.s. 7. Melatonin 3 mg p.o. q.h.s. p.r.n. 8. Montelukast 10 mg p.o. q.h.s. 9. Multivitamin q. day. ISSUES TO BE ADDRESSED AT FOLLOWUP: 1. Mobility and activities of daily living. She will continue PT and OT and can follow up with her primary care provider. 2. 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 She will follow up with neurosurgeon, Dr. Denzel Velasco. 3. Visual disturbance status post CVA. She will follow up with neuro- pattern painter, Dr. Kyle Wiley. Copy requested to: Dr. Cindy Rascon [place], [place] Neurosurgery Department /[id number]
== END 2018-03-17 15:14 | disposition home or self-care (01) | DRG 56 ==
LOC: BREH 13:26
PROVIDERS: ADMIT Internal Medicine; ATTEND Internal Medicine
DX: I69.154 Hemiplegia and hemiparesis following nontraumatic intracerebral hemorrhage affecting left non-dominant side (principal); G93.6 Cerebral edema; I69.191 Dysphagia following nontraumatic intracerebral hemorrhage; I69.192 Facial weakness following nontraumatic intracerebral hemorrhage; I67.5 Moyamoya disease; E78.5 Hyperlipidemia, unspecified; J45.909 Unspecified asthma, uncomplicated; R20.3 Hyperesthesia; F32.9 Major depressive disorder, single episode, unspecified; E66.9 Obesity, unspecified
CPT/HCPCS: 92507-GN; 92523-GN; 92526-GN; 92610-GN; 97110-GO; 97110-GP; 97112-GO; 97112-GP; 97116-GP; 97140-GO; 97161-GP; 97166-GO; 97530-GO; 97530-GP; 97535-GO; G0515-GO

== ENCOUNTER → 2018-04-03 | Outpatient (CLI) | payer OTHER | LOC: CIMAGING 08:15 | PROVIDERS: ATTEND Neurological Surgery | DX: S06.5X0D Traumatic subdural hemorrhage without loss of consciousness, subsequent encounter (principal) | CPT/HCPCS: 70450-PO ==